=== PATIENT | female | born 1940 | race Caucasian/White ===

== ENCOUNTER 2017-06-15 13:26 | Emergency (ER) | payer MEDICARE ==
[~2017-06-15] VITALS: Ht 170.2 cm; Wt 65.0 kg
[~2017-06-15 13:26] MED LIST: AMLO5 PO; GABA100C4 PO; METO25TA6 PO; TEMA15CA PO
[2017-06-15 13:28] VITALS: BP 219/103; PULSE 54; RESP 24; TEMP 97.8; O2SAT 100
--- NOTE | 2017-06-15 13:33 | PD ---
Physical Exam Date Seen by Provider: Jun 15, 2017 Time Seen by Provider: 13:29 Narrative 76 yo female here for eval of HTN and low HR. Has had this since today. Feels jittery. Weak. Not feeling right. No chest pain. But feels SOB. Vitals are stable in triage. Awaiting Bed placement. Data Data Last Documented VS Vital Signs Date Time Temp Pulse Resp B/P Pulse Ox O2 Delivery O2 Flow Rate FiO2 06/15/17 13:28 97.8 54 24 219/103 100 Room Air [facility] Medical Record Reviewed: Yes Supervised Visit with ARNAUD: Pete Victoria Jun 15, 2017 13:33
[2017-06-15 14:05] VITALS: RESP 17; O2SAT 100
--- NOTE | 2017-06-15 14:09 | PD ---
HPI Chief Complaint: dizziness Time Seen by Provider: 14:04 Travel History International Travel<30 days: No Contact w/Intl Traveler<30days: No Traveled to known affect area: No History of Present Illness HPI Patient comes in complaining of dizziness that began earlier today. Patient's sister started checking her blood pressure multiple times and was going up some. Patient states that on Tuesday she was feeling a little more swollen than normal and a diuretic. Causing her to void multiple times. Patient states she normally gets about 6 times at night to urinate however last night she did not get up at all. Patient denies any chest pain, shortness breath without of the ordinary, headache, numbness or tingling anywhere, abdominal pain, back pain, nausea, vomiting, or fevers. Patient has a colostomy is noted is been putting out more stool than normal. Patient drank some Gatorade that seemed to help her symptoms. Patient thinks she may be dehydrated her and that her electrolytes may be off. Patient states she has a history of stage III renal disease. Denies anything making her symptoms worse. Symptoms are mild. 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 ) Hepatitis: No Hiatal Hernia: No Hypertension: Yes Immune Disorder: No Implanted Vascular Access Dvce: Yes Kidney Stones: No Musculoskeletal: Yes (Arthritis) Neurologic: Yes Psychiatric: No Reproductive: No Respiratory: Yes Migraines: No Radiation Therapy: No Seizures: No Sleep Apnea: No Thyroid Disease: No Ulcer: No Past Surgical History Abdominal Surgery: Yes (colostomy 2002) AICD: No Arteriovenous Shunt: No Cardiac Surgery: Yes (stent 5 yrs ago, DOUBLE BYPASS CABG 11/03/13) Cholecystectomy: Yes Coronary Artery Bypass Graft: Yes (x2) Coronary Stent: Yes Ear Surgery: Yes (preauricular sinus sx right ear) Endocrine Surgery: No Eye Surgery: Yes (cataract, bilateral vitrectomy) Genitourinary Surgery: No Gynecologic Surgery: Yes (hysterectomy) Hysterectomy: Yes Insulin Pump: No Joint Replacement: No Neurologic Surgery: No Oral Surgery: No Pacemaker: No Thoracic Surgery: Yes Tonsillectomy: Yes Other Surgery: Yes (tonsils, cataract bilaterally, gallbladder, hysterectomy, colostomy ) Social History Alcohol Use: No Tobacco Use: No Substance Use: No Allergies-Medications (Allergen,Severity, Reaction): Coded Allergies: Erythromycin (Verified Allergy, Severe, RASH, 06/15/17) Ibuprofen (Verified Allergy, Severe, RASH, 06/15/17) Amiodarone (Verified Adverse Reaction, Severe, tremors off balance vomiting, 06/15/17) Reported Meds & Prescriptions Reported Meds & Active Scripts Active Reported Temazepam 15 Mg Cap 15 Mg PO DAILY Metoprolol Succinate ER 24 HR (Metoprolol Succinate) 25 Mg Tab 25 Mg PO BID Review of Systems Except as stated in HPI: all other systems reviewed are Neg Physical Exam Narrative GENERAL: Well-developed, well nourished, in no acute distress, and non-ill appearing. SKIN: Focused skin assessment warm and dry. HEAD: Atraumatic. Normocephalic. EYES: Pupils equal and round. EOMI. No scleral icterus. No injection or drainage. ENT: No nasal bleeding or discharge. Mucous membranes pink and moist. NECK: Trachea midline. No JVD. Supple. No nuclear rigidity. CARDIOVASCULAR: Regular rate and rhythm. No murmur appreciated. RESPIRATORY: No accessory muscle use. No respiratory distress. Clear to auscultation. Breath sounds equal bilaterally. GASTROINTESTINAL: Abdomen soft, non-tender, nondistended, and no guarding. Hepatic and splenic margins not palpable. Normal bowel sounds 4. No pulsatile mass. Colostomy bag noted left lower quadrant. There is no melena or bright red blood noted in the stool. MUSCULOSKELETAL: No obvious deformities. No clubbing. No cyanosis. No edema. Full range of motion. NEUROLOGICAL: Awake and alert. No obvious cranial nerve deficits. Motor grossly within normal limits. Normal speech. PSYCHIATRIC: Appropriate mood and affect; insight and judgment normal. Data Data Last Documented VS Vital Signs Date Time Temp Pulse Resp B/P Pulse Ox O2 Delivery O2 Flow Rate FiO2 06/15/17 16:09 98.1 54 16 138/76 100 06/15/17 15:32 Room Air Orders Electrocardiogram (06/15/17 ) Basic Metabolic Panel (Bmp) (06/15/17 14:03) Complete Blood Count With Diff (06/15/17 14:03) Urinalysis - C+S If Indicated (06/15/17 14:03) Ecg Monitoring (06/15/17 14:03) Iv Access Insert/Monitor (06/15/17 14:03) Oximetry (06/15/17 14:03) Sodium Chloride 0.9% Flush (Ns Flush) (06/15/17 14:15) Sodium Chlorid 0.9% 500 Ml Inj (Ns 500 M (06/15/17 14:15) Labs Laboratory Tests Test 06/15/17 06/15/17 14:08 14:18 White Blood Count 8.6 TH/MM3 Red Blood Count 4.28 MIL/MM3 Hemoglobin 13.2 GM/DL Hematocrit 38.8 % Mean Corpuscular Volume 90.7 FL Mean Corpuscular Hemoglobin 30.8 PG Mean Corpuscular Hemoglobin 33.9 % Concent Red Cell Distribution Width 12.9 % Platelet Count 173 TH/MM3 Mean Platelet Volume 8.0 FL Neutrophils (%) (Auto) 67.2 % Lymphocytes (%) (Auto) 21.1 % Monocytes (%) (Auto) 7.4 % Eosinophils (%) (Auto) 3.6 % Basophils (%) (Auto) 0.7 % Neutrophils # (Auto) 5.8 TH/MM3 Lymphocytes # (Auto) 1.8 TH/MM3 Monocytes # (Auto) 0.6 TH/MM3 Eosinophils # (Auto) 0.3 TH/MM3 Basophils # (Auto) 0.1 TH/MM3 CBC Comment DIFF FINAL Differential Comment Sodium Level 135 MEQ/L Potassium Level 4.9 MEQ/L Chloride Level 102 MEQ/L Carbon Dioxide Level 22.8 MEQ/L Anion Gap 10 MEQ/L Blood Urea Nitrogen 27 MG/DL Creatinine 1.22 MG/DL Estimat Glomerular Filtration 43 ML/MIN Rate Random Glucose 87 MG/DL Calcium Level 9.5 MG/DL Urine Color LIGHT-YELLOW Urine Turbidity CLEAR Urine pH 6.0 Urine Specific [place] 1.005 Urine Protein NEG mg/dL Urine Glucose (UA) NEG mg/dL Urine Ketones NEG mg/dL Urine Occult Blood NEG Urine Nitrite NEG Urine Bilirubin NEG Urine Urobilinogen LESS THAN 2.0 MG/DL Urine Leukocyte Esterase SMALL Urine RBC LESS THAN 1 /hpf Urine WBC 5 /hpf Urine Squamous Epithelial <1 /hpf Cells Microscopic Urinalysis Comment CULT NOT INDICATED MDM Medical Decision Making Medical Screen Exam Complete: Yes Emergency Medical Condition: Yes Interpretation(s) EKG reviewed by Dr. Tan shows sinus bradycardia with ventricular rate of 53. No STEMI. Differential Diagnosis Dehydration, electrolyte rheumatic, vertigo, dehydration, other Narrative Course Patient seen and examined. IV was established. Patient was placed on continuous cardiac monitoring. Laboratory studies were ordered. Patient given 500 cc IV fluid. Labs were reviewed. Patient was reevaluated reports feeling better. Discussed all laboratory findings with patient and her sister. Patient states that she has dizziness regularly and has meclizine at home for this but did not take any. Patient states that she normally has to ambulate with assistance from her sister as she refuses to use a walker. Patient is feeling better and wanting to go home. Patient was able to ambulate to the bathroom back with minimal assistance of her sister. All questions were answered. Patient in no obvious distress upon re-evaluation. All pertinent laboratory result(s) discussed with patient/family. Discussed patient with Dr. Tan, prior to discharge who reviewed patients labs and is in agreement with plan of care and disposition. Any questions/concerns in reference to patient diagnosis/ condition discussed and clarified prior to patient's discharge. Reinforced sheer importance of close follow up with patient's primary physician or primary care clinic. Instructed patient to return to ED immediately, if symptoms return/ worsen. Pt showed understanding of above instructions. Further instructions and recommendations were detailed in discharge paperwork. Pt ambulated without difficulty out of ED at discharge. Diagnosis Primary Impression: Dehydration, mild Patient Instructions: Dehydration (ED), General Instructions Additional Instructions: Follow-up with your primary care physician in 2-5 days reevaluation. Return to the emergency department if symptoms get worse. Disposition: 01 DISCHARGE HOME Condition: Stable Lew Alberto Jun 15, 2017 14:09
[2017-06-15] MEDS ORDERED: SODIUM CHLORID 0.9% 500 ML INJ 500 ML IV ONE (14:15)
[2017-06-15] MEDS ORDERED: SODIUM CHLORIDE 0.9% FLUSH 10 ML FLUSH IVF PRN (14:15)
[2017-06-15 14:24] VITALS: BP 142/73; PULSE 56; RESP 17; O2SAT 100
[2017-06-15 14:36] LABS: BLOOD, URINE NEG (NEG); COMMENT (UR) CULT NOT INDICATED; CULTURE IF INDICATED CULT NOT INDICATED; GLUCOSE,URINE NEG (NEG); KETONE, URINE NEG (NEG); NITRITE,URINE NEG (NEG); SQUAMOUS EPITHELIAL CELL URINE <1 /hpf (0-5); URINE COLOR LIGHT-YELLOW (YELLW/STRAW)
[2017-06-15 14:37] LABS: AUTOMATED NEUTROPHIL # 5.8 TH/MM3 (1.8-7.7); BASOPHIL # 0.1 TH/MM3 (0-0.2); BASOPHIL % 0.7 % (0.0-2.0); EOSINOPHIL # 0.3 TH/MM3 (0-0.4); EOSINOPHIL % 3.6 % (0.0-4.0); HEMATOCRIT 38.8 % (35.0-46.0); HEMO FLAGS DIFF FINAL; LYMPH % 21.1 % (9.0-44.0); LYMPHOCYTE # 1.8 TH/MM3 (1.0-4.8); MEAN CELL VOLUME 90.7 FL (80.0-100.0); MEAN CORPUSCULAR HEMOGLOBIN 30.8 PG (27.0-34.0); MEAN CORPUSCULAR HGB CONC 33.9 % (32.0-36.0); MONO % 7.4 % (0.0-8.0); NEUT % 67.2 % (16.0-70.0); PLATELET COUNT 173 TH/MM3 (150-450); RED BLOOD COUNT 4.28 MIL/MM3 (4.00-5.30); RED CELL DISTRIBUTION WIDTH 12.9 % (11.6-17.2); WHITE BLOOD COUNT 8.6 TH/MM3 (4.0-11.0)
[2017-06-15 15:08] LABS: BICARBONATE 22.8 MEQ/L (21.0-32.0); POTASSIUM 4.9 MEQ/L (3.5-5.1)
[2017-06-15 15:32] VITALS: BP 148/83; PULSE 54; RESP 16; TEMP 97.8; O2SAT 99
[2017-06-15 16:09] VITALS: BP 138/76; TEMP 98.1
--- NOTE | 2017-06-16 11:35 | EKG ---
Date Performed: 06/15/2017 Time Performed: 13:42:28 PTAGE: 76 years EKG: SINUS BRADYCARDIA WITH FIRST DEGREE AV BLOCK MODERATE ST DEPRESSION ABNORMAL ECG Compared t o prior tracing no significant change PREVIOUS TRACING : 10/31/2016 15.28 DOCTOR: Michael Perry Interpretating Date/Time 06/16/2017 11:33:38
== END 2017-06-15 16:10 | disposition home or self-care (01) ==
LOC: NEPC 13:26
DX: E86.0 Dehydration (principal); I10 Essential (primary) hypertension; Z85.038 Personal history of other malignant neoplasm of large intestine; Z86.73 Personal history of transient ischemic attack (TIA), and cerebral infarction without residual deficits; Z93.3 Colostomy status; Z95.1 Presence of aortocoronary bypass graft; Z95.5 Presence of coronary angioplasty implant and graft; Z79.82 Long term (current) use of aspirin
CPT/HCPCS: 80048; 81001; 85025; 93005; 96360; 99284; J7040

== ENCOUNTER 2017-07-15 12:35 | Emergency (ER) | payer MEDICARE ==
[~2017-07-15 12:35] MED LIST changes: -AMLO5 PO; -GABA100C4 PO
[2017-07-15 12:46] VITALS: BP 229/97; PULSE 51; RESP 18; TEMP 97.7; O2SAT 100
[2017-07-15] MEDS ORDERED: SODIUM CHLOR 0.9% 1000 ML INJ 1,000 ML IV ONE (12:56)
--- NOTE | 2017-07-15 13:08 | PD ---
HPI Chief Complaint: General Weakness Time Seen by Provider: 13:05 Travel History International Travel<30 days: No Contact w/Intl Traveler<30days: No Traveled to known affect area: No History of Present Illness HPI 76-year-old brought in via EMS with complaint of feeling nauseous when she first woke up this morning. patient stated she knows she is on a beta tahira which can affect her heart rate so she sat down and checked her heart rate. Her heart rate was approximately 41 per patient and then she checked her blood pressure and her blood pressure was elevated. These findings greatly concerned the patient so she contacted her sister stating she needed help regarding her symptoms. Her sister came to her apartment and recommended that they call 911. While they're waiting for EMS the patient consumed some electrolyte drink that her sister brought from [employer] store because she thought the problem might be with her electrolytes. The patient explained that similar to Gatorade but more pure. The patient explained that she has had a scary year regarding her health. She was worked up for meningitis last year. After her stent in intensive medical care she has had issues regarding her electrolytes. She was concerned that her electrolytes might be off and would like her electrolytes checked. Patient denies any shortness of breath, chest pain, urinary symptoms, fever or chills. No headache or neurological symptoms. Patient has a history of colon cancer and has a colostomy bag in place. She denies any problems or concerns with her colostomy. She denies any abdominal pain or vomiting. She did feel nauseated when she woke up today but those symptoms have resolved at this time. 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 ) Hepatitis: No Hiatal Hernia: No Hypertension: Yes Immune Disorder: No Implanted Vascular Access Dvce: Yes Kidney Stones: No Musculoskeletal: Yes (Arthritis) Neurologic: Yes Psychiatric: No Reproductive: No Respiratory: Yes Migraines: No Radiation Therapy: No Seizures: No Sleep Apnea: No Thyroid Disease: No Ulcer: No Past Surgical History Abdominal Surgery: Yes (colostomy 2002) AICD: No Arteriovenous Shunt: No Cardiac Surgery: Yes (stent 5 yrs ago, DOUBLE BYPASS CABG 11/03/13) Cholecystectomy: Yes Coronary Artery Bypass Graft: Yes (x2) Coronary Stent: Yes Ear Surgery: Yes (preauricular sinus sx right ear) Endocrine Surgery: No Eye Surgery: Yes (cataract, bilateral vitrectomy) Genitourinary Surgery: No Gynecologic Surgery: Yes (hysterectomy) Hysterectomy: Yes Insulin Pump: No Joint Replacement: No Neurologic Surgery: No Oral Surgery: No Pacemaker: No Thoracic Surgery: Yes Tonsillectomy: Yes Other Surgery: Yes (tonsils, cataract bilaterally, gallbladder, hysterectomy, colostomy ) Social History Alcohol Use: Yes (OCASSIONALLY) Tobacco Use: No (QUIT 30 YEARS AGO) Substance Use: No Allergies-Medications (Allergen,Severity, Reaction): Coded Allergies: erythromycin base (Unverified Allergy, Severe, RASH, 06/22/17) ibuprofen (Unverified Allergy, Severe, RASH, 06/22/17) amiodarone (Unverified Adverse Reaction, Severe, tremors off balance vomiting, 06/22/17) Reported Meds & Prescriptions Reported Meds & Active Scripts Active Reported Temazepam 15 Mg Cap 15 Mg PO DAILY Metoprolol Succinate ER 24 HR (Metoprolol Succinate) 25 Mg Tab 25 Mg PO BID Review of Systems Except as stated in HPI: all other systems reviewed are Neg Physical Exam Narrative GENERAL: Well-nourished, well-developed female patient. In no acute distress. SKIN: Focused skin assessment warm/dry. NEUROLOGICAL: Awake and alert. Cranial nerves II through XII grossly intact. Motor and sensory grossly within normal limits. Five out of 5 muscle strength in all muscle groups. Normal speech. HEAD: Normocephalic. Atraumatic EYES: No scleral icterus. No injection or drainage. PERRLA. NECK: Supple, trachea midline. No JVD or lymphadenopathy. CARDIOVASCULAR: Regular rate and rhythm without murmurs, gallops, or rubs. RESPIRATORY: Breath sounds equal bilaterally. No accessory muscle use. GASTROINTESTINAL: Abdomen soft, non-tender, nondistended. Colostomy in place. MUSCULOSKELETAL: No cyanosis, or edema. BACK: Nontender without obvious deformity. No CVA tenderness. Data Data Last Documented VS Vital Signs Date Time Temp Pulse Resp B/P (MAP) Pulse Ox O2 Delivery O2 Flow Rate FiO2 07/15/17 14:22 85 16 172/74 (106) 100 Room Air 07/15/17 12:46 97.7 Orders Orders Electrocardiogram (07/15/17 12:56) Basic Metabolic Panel (Bmp) (07/15/17 12:56) Complete Blood Count With Diff (07/15/17 12:56) Magnesium (Mg) (07/15/17 12:56) Ckmb (Isoenzyme) Profile (07/15/17 12:56) Troponin I (07/15/17 12:56) Urinalysis - C+S If Indicated (07/15/17 12:56) Ecg Monitoring (07/15/17 12:56) Iv Access Insert/Monitor (07/15/17 12:56) Sodium Chlor 0.9% 1000 Ml Inj (Ns 1000 M (07/15/17 12:56) Urine Culture (07/15/17 13:13) Labs Laboratory Tests Test 07/15/17 13:13 White Blood Count 8.6 TH/MM3 Red Blood Count 4.51 MIL/MM3 Hemoglobin 13.6 GM/DL Hematocrit 40.5 % Mean Corpuscular Volume 89.7 FL Mean Corpuscular Hemoglobin 30.0 PG Mean Corpuscular Hemoglobin Concent 33.5 % Red Cell Distribution Width 13.0 % Platelet Count 184 TH/MM3 Mean Platelet Volume 8.4 FL Neutrophils (%) (Auto) 63.4 % Lymphocytes (%) (Auto) 23.0 % Monocytes (%) (Auto) 8.0 % Eosinophils (%) (Auto) 4.9 % Basophils (%) (Auto) 0.7 % Neutrophils # (Auto) 5.4 TH/MM3 Lymphocytes # (Auto) 2.0 TH/MM3 Monocytes # (Auto) 0.7 TH/MM3 Eosinophils # (Auto) 0.4 TH/MM3 Basophils # (Auto) 0.1 TH/MM3 CBC Comment DIFF FINAL Differential Comment Urine Color LIGHT-YELLOW Urine Turbidity CLEAR Urine pH 7.0 Urine Specific [place] 1.005 Urine Protein NEG mg/dL Urine Glucose (UA) NEG mg/dL Urine Ketones NEG mg/dL Urine Occult Blood NEG Urine Nitrite NEG Urine Bilirubin NEG Urine Urobilinogen LESS THAN 2.0 MG/DL Urine Leukocyte Esterase LARGE Urine RBC 1 /hpf Urine WBC 18 /hpf Urine Squamous Epithelial Cells <1 /hpf Urine Bacteria RARE /hpf Microscopic Urinalysis Comment CULTURE INDICATED Blood Urea Nitrogen 22 MG/DL Creatinine 1.18 MG/DL Random Glucose 94 MG/DL Calcium Level 9.4 MG/DL Magnesium Level 2.2 MG/DL Sodium Level 137 MEQ/L Potassium Level 4.4 MEQ/L Chloride Level 106 MEQ/L Carbon Dioxide Level 21.3 MEQ/L Anion Gap 10 MEQ/L Estimat Glomerular Filtration Rate 44 ML/MIN Total Creatine Kinase 37 U/L Troponin I LESS THAN 0.02 NG/ML MDM Medical Decision Making Medical Screen Exam Complete: Yes Emergency Medical Condition: Yes Medical Record Reviewed: Yes Differential Diagnosis Electrolyte imbalance versus anxiety versus bradycardia versus hypertension Narrative Course 76-year-old female patient presents to the emergency department for evaluation after she woke up nauseated. She checked her own pulse and stated it was 41 bpm and her blood pressure was elevated. She called her sister for help. Her sister brought over to electrolyte drink that she brought from [employer] disorder. The patient explains that it was like Gatorade only more pure. The patient has had many issues regarding electrolyte imbalances since her stay and intensive care last year when she was worked up for meningitis. The patient denies any shortness of breath, chest pain, headache, neurological symptoms, urinary symptoms, fever or chills. The patient explained she would like her electrolytes checked to ensure that they are within normal limits. EKG, CBC, BMP, magnesium, troponin, CK, UA ordered and pending EKG shows a sinus bradycardia with first-degree AV block heart rate 44, CBC shows no acute abnormality, BMP shows no acute abnormality, MAG within normal limits at 2.2, Trop less than 0.02, CK within normal limits at 37, UA shows large amounts of bacteria, leukocyte esterase, culture indicated and pending Findings discussed with attending Dr. Tan who agrees with plan of care and disposition. Patient will be treated with Bactrim by mouth for urinary tract infection and discharged home. Referrals: Primary Care Physician Patient Instructions: General Instructions, Urinary Tract Infection in Women ( ED) Additional Instructions: Take Bactrim twice a day for 3 days for urinary tract infection. Drink plenty of fluids and stay hydrated. Continue to check heart rate and blood pressure at home. Please return to the emergency department with any worsening or new conditions Thank you for choosing [facility] healthcare needs Med/Other Pt SpecificInfo: Prescription(s) given Scripts Sulfamethoxazole-Trimethoprim (Bactrim DS) 800-160 Mg Tab 1 TAB PO BID for Infection for 3 Days, TAB 0 Refills Prov: Lacie Bryson 07/15/17 Lacie Bryson Jul 15, 2017 13:08
[2017-07-15 13:25] LABS: AUTOMATED NEUTROPHIL # 5.4 TH/MM3 (1.8-7.7); BASOPHIL # 0.1 TH/MM3 (0-0.2); BASOPHIL % 0.7 % (0.0-2.0); EOSINOPHIL # 0.4 TH/MM3 (0-0.4); EOSINOPHIL % 4.9 % (0.0-4.0); HEMATOCRIT 40.5 % (35.0-46.0); HEMO FLAGS DIFF FINAL; MEAN CELL VOLUME 89.7 FL (80.0-100.0); MEAN CORPUSCULAR HGB CONC 33.5 % (32.0-36.0); NEUT % 63.4 % (16.0-70.0); PLATELET COUNT 184 TH/MM3 (150-450); RED BLOOD COUNT 4.51 MIL/MM3 (4.00-5.30); WHITE BLOOD COUNT 8.6 TH/MM3 (4.0-11.0)
[2017-07-15 13:30] LABS: BACTERIA, URINE RARE /hpf; BLOOD, URINE NEG (NEG); COMMENT (UR) CULTURE INDICATED; CULTURE IF INDICATED CULTURE INDICATED; GLUCOSE,URINE NEG (NEG); KETONE, URINE NEG (NEG); NITRITE,URINE NEG (NEG); SQUAMOUS EPITHELIAL CELL URINE <1 /hpf (0-5); URINE COLOR LIGHT-YELLOW (YELLW/STRAW)
[2017-07-15 13:44] LABS: ANION GAP 10 MEQ/L (5-15); BICARBONATE 21.3 MEQ/L (21.0-32.0); BLOOD UREA NITROGEN 22 MG/DL (7-18); CHLORIDE 106 MEQ/L (98-107); GLOMERULAR FILTRATION RATE 44 ML/MIN (>89); MAGNESIUM 2.2 MG/DL (1.5-2.5); POTASSIUM 4.4 MEQ/L (3.5-5.1); SODIUM (NA) 137 MEQ/L (136-145)
[2017-07-15 13:54] LABS: CREATINE KINASE 37 U/L (26-192)
[2017-07-15 14:22] VITALS: BP 172/74; PULSE 85; RESP 16; O2SAT 100
[2017-07-15] MEDS ORDERED: BACT800T5 PO (14:42)
--- NOTE | 2017-07-15 15:21 | PD ---
Data Data Last Documented VS Vital Signs Date Time Temp Pulse Resp B/P (MAP) Pulse Ox O2 Delivery O2 Flow Rate FiO2 07/15/17 15:18 07/15/17 14:22 85 16 100 Room Air 07/15/17 12:46 97.7 Orders Orders Electrocardiogram (07/15/17 12:56) Basic Metabolic Panel (Bmp) (07/15/17 12:56) Complete Blood Count With Diff (07/15/17 12:56) Magnesium (Mg) (07/15/17 12:56) Ckmb (Isoenzyme) Profile (07/15/17 12:56) Troponin I (07/15/17 12:56) Urinalysis - C+S If Indicated (07/15/17 12:56) Ecg Monitoring (07/15/17 12:56) Iv Access Insert/Monitor (07/15/17 12:56) Sodium Chlor 0.9% 1000 Ml Inj (Ns 1000 M (07/15/17 12:56) Urine Culture (07/15/17 13:13) Labs Laboratory Tests Test 07/15/17 13:13 White Blood Count 8.6 TH/MM3 Red Blood Count 4.51 MIL/MM3 Hemoglobin 13.6 GM/DL Hematocrit 40.5 % Mean Corpuscular Volume 89.7 FL Mean Corpuscular Hemoglobin 30.0 PG Mean Corpuscular Hemoglobin Concent 33.5 % Red Cell Distribution Width 13.0 % Platelet Count 184 TH/MM3 Mean Platelet Volume 8.4 FL Neutrophils (%) (Auto) 63.4 % Lymphocytes (%) (Auto) 23.0 % Monocytes (%) (Auto) 8.0 % Eosinophils (%) (Auto) 4.9 % Basophils (%) (Auto) 0.7 % Neutrophils # (Auto) 5.4 TH/MM3 Lymphocytes # (Auto) 2.0 TH/MM3 Monocytes # (Auto) 0.7 TH/MM3 Eosinophils # (Auto) 0.4 TH/MM3 Basophils # (Auto) 0.1 TH/MM3 CBC Comment DIFF FINAL Differential Comment Urine Color LIGHT-YELLOW Urine Turbidity CLEAR Urine pH 7.0 Urine Specific [place] 1.005 Urine Protein NEG mg/dL Urine Glucose (UA) NEG mg/dL Urine Ketones NEG mg/dL Urine Occult Blood NEG Urine Nitrite NEG Urine Bilirubin NEG Urine Urobilinogen LESS THAN 2.0 MG/DL Urine Leukocyte Esterase LARGE Urine RBC 1 /hpf Urine WBC 18 /hpf Urine Squamous Epithelial Cells <1 /hpf Urine Bacteria RARE /hpf Microscopic Urinalysis Comment CULTURE INDICATED Blood Urea Nitrogen 22 MG/DL Creatinine 1.18 MG/DL Random Glucose 94 MG/DL Calcium Level 9.4 MG/DL Magnesium Level 2.2 MG/DL Sodium Level 137 MEQ/L Potassium Level 4.4 MEQ/L Chloride Level 106 MEQ/L Carbon Dioxide Level 21.3 MEQ/L Anion Gap 10 MEQ/L Estimat Glomerular Filtration Rate 44 ML/MIN Total Creatine Kinase 37 U/L Troponin I LESS THAN 0.02 NG/ML [facility] Medical Record Reviewed: Yes Supervised Visit with ARNAUD: Yes Narrative Course I, Dr. Tan, have reviewed the advance practice practitioner's documentation and am in agreement, met with the patient face to face, made the diagnosis, and the medical decision making was done by me. *My assessment and Findings: CBC & BMP Diagram 07/15/17 13:13 Calcium Level 9.4, Magnesium Level 2.2 Tn < 0.02 UA: UTI present BP improved to 172/74 The patient is resting comfortably and feels better, is alert and in no distress. The patients results and examination findings were discussed. The repeat examination is unremarkable and benign. The history, exam, diagnostic testing, and current condition do not suggest any significant pathology to warrant further testing, continued ED treatment, admission, or surgical evaluation at this point. The vital signs have been stable. The patient does not have uncontrollable pain, intractable vomiting, or other significant symptoms. The patient's condition is stable and appropriate for discharge. The patient will pursue further outpatient evaluation with a primary care physician or other designated or consulting physician as indicated in the discharge instructions. The patient expressed understanding and was agreeable with this plan. Diagnosis Primary Impression: Cystitis Additional Impression: Bradycardia Referrals: Primary Care Physician Patient Instructions: General Instructions, Urinary Tract Infection in Women ( ED) Additional Instruction: Take Bactrim twice a day for 3 days for urinary tract infection. Drink plenty of fluids and stay hydrated. Continue to check heart rate and blood pressure at home. Please return to the emergency department with any worsening or new conditions Thank you for choosing [facility] healthcare needs Scripts Sulfamethoxazole-Trimethoprim (Bactrim DS) 800-160 Mg Tab 1 TAB PO BID for Infection for 3 Days, TAB 0 Refills Prov: Lacie Bryson 07/15/17 Jorge Luis Tan MD Jul 15, 2017 15:21
--- NOTE | 2017-07-16 13:30 | EKG ---
Date Performed: 07/15/2017 Time Performed: 14:18:14 PTAGE: 76 years EKG: SINUS BRADYCARDIA WITH FIRST DEGREE AV BLOCK MINIMAL ST DEPRESSION PROLONGED QT INTERVAL AB NORMAL ECG PREVIOUS TRACING : 06/15/2017 13.42 Since prior tracing, bradycardia is more marked. DOCTOR: Jv Mahoney Interpretating Date/Time 07/16/2017 13:29:10
== END 2017-07-15 15:33 | disposition home or self-care (01) ==
LOC: NEPE 12:35
DX: N30.90 Cystitis, unspecified without hematuria (principal); B96.89 Other specified bacterial agents as the cause of diseases classified elsewhere; R00.1 Bradycardia, unspecified; I10 Essential (primary) hypertension; Z85.038 Personal history of other malignant neoplasm of large intestine; Z87.891 Personal history of nicotine dependence
CPT/HCPCS: 80048; 81001; 82550; 83735; 84484; 85025; 87086; 93005; 96360; 99284; J7030

== ENCOUNTER 2017-10-08 14:03 | Inpatient (IN) | payer MEDICARE ==
[~2017-10-08] VITALS: Ht 167.6 cm; Wt 144.0 kg
[2017-10-08] VITALS (9 sets, daily range): BP systolic 140–236; BP diastolic 62–102; PULSE 60–78; RESP 16–18; TEMP 97.8; O2SAT 98–100
[~2017-10-08 14:03] MED LIST changes: +BACT800T5 PO; +METO1TAB42 PO; -METO25TA6 PO
[2017-10-08] MEDS ORDERED: METH8TAB3 PO (14:14)
[2017-10-08] MEDS ORDERED: ASPIRIN 81 MG CHEW TAB PO ONE (14:45)
[2017-10-08] MEDS ORDERED: SODIUM CHLORIDE 0.9% FLUSH 10 ML FLUSH IVF PRN (14:45)
[2017-10-08] MEDS ORDERED: NITROGLYCERIN 2% OINT 1 GM PACKET TOP ONE (14:45)
--- NOTE | 2017-10-08 14:48 | PD ---
HPI Chief Complaint: Chest Pain Time Seen by Provider: 14:21 Travel History International Travel<30 days: No Contact w/Intl Traveler<30days: No Traveled to known affect area: No History of Present Illness HPI Patient is a 77-year-old female presenting to emergency department for evaluation of chest pain. Patient states that approximately noon today she started with pain in her neck, this radiated to the epigastric area then progressed to the left anterior chest wall and left arm. Patient reports being diaphoretic and dizzy when this occurred. She also reports burping for 30 minutes after the chest pain started. She initially thought it was indigestion but when the pain persisted she presented to the emergency department. Patient states that she felt wheezy last night and used her albuterol inhaler, she denies any shortness of breath at this time. She does have a history of asthma as a child. She currently denies any chest pain. Past medical history significant for hypertension, coronary artery disease, stage III chronic kidney disease, congestive heart failure, colon cancer with resection and subsequent colostomy. Patient is not on any blood thinners. Patient does report looser stools than normal. She states that she has had a heart attack in the past when her electrolytes were depleted. PFSH Past Medical History Arthritis: Yes Heart Rhythm Problems: Yes (prolonged QT) Cancer: Yes (colon ) Cardiac Catheterization: Yes (x2) Chemotherapy: Yes (colon cancer 2002) Chest Pain: Yes Congestive Heart Failure: Yes Cerebrovascular Accident: Yes Coronary Artery Disease: Yes Gastrointestinal Disorders: Yes (irritable bowel disease) GERD: Yes Hypertension: Yes Neurologic: Yes Myocardial Infarction: Yes Renal Failure: Yes (chronic kidney disease stage III) Tetanus Vaccination: > 5 Years Influenza Vaccination: Yes Past Surgical History Abdominal Surgery: Yes (colostomy 2002) Cholecystectomy: Yes Coronary Artery Bypass Graft: Yes Coronary Stent: Yes Ear Surgery: Yes (preauricular sinus sx right ear) Eye Surgery: Yes (cataract, bilateral vitrectomy) Hysterectomy: Yes Pacemaker: Yes Tonsillectomy: Yes Social History Alcohol Use: Yes (OCASSIONALLY) Tobacco Use: No (QUIT 30 YEARS AGO) Substance Use: No Allergies-Medications (Allergen,Severity, Reaction): Coded Allergies: erythromycin base (Verified Allergy, Severe, RASH, 10/08/17) ibuprofen (Verified Allergy, Severe, RASH, 10/08/17) amiodarone (Unverified Adverse Reaction, Severe, tremors off balance vomiting, 06/22/17) Reported Meds & Prescriptions Reported Meds & Active Scripts Active Reported Methylprednisolone 8 Mg Tab 4 Mg PO BID Temazepam 15 Mg Cap 15 Mg PO DAILY Metoprolol Succinate ER 24 HR (Metoprolol Succinate) 25 Mg Tab 25 Mg PO BID Review of Systems Except as stated in HPI: all other systems reviewed are Neg General / Constitutional: No: Fever Eyes: No: Photophobia HENT: No: Headaches Cardiovascular: Positive: Chest Pain or Discomfort, Diaphoresis, No: Tachycardia, Dyspnea on exertion, Edema Respiratory: Positive: Shortness of Breath Gastrointestinal: Positive: Indigestion Genitourinary: No: Dysuria Neurologic: Positive: Dizziness, No: Weakness, Syncope, Focal Abnormalities, Change in Mentation Physical Exam Narrative GENERAL: Well-developed, well-nourished, alert female. Resting comfortably in no acute distress. SKIN: Warm and dry. HEAD: Atraumatic. Normocephalic. EYES: Pupils equal and round. No scleral icterus. No injection or drainage. ENT: No nasal bleeding or discharge. Mucous membranes pink and moist. NECK: Trachea midline. No JVD. CARDIOVASCULAR: Regular rate and rhythm. RESPIRATORY: No accessory muscle use. Clear to auscultation. Breath sounds equal bilaterally. GASTROINTESTINAL: Abdomen soft, non-tender, nondistended. Hepatic and splenic margins not palpable. Colostomy bag MUSCULOSKELETAL: Extremities without clubbing, cyanosis, or edema. No obvious deformities. NEUROLOGICAL: Awake and alert. No obvious cranial nerve deficits. Motor grossly within normal limits. Five out of 5 muscle strength in the arms and legs. Normal speech. PSYCHIATRIC: Appropriate mood and affect; insight and judgment normal. Data Data Last Documented VS Vital Signs Date Time Temp Pulse Resp B/P (MAP) Pulse Ox O2 Delivery O2 Flow Rate FiO2 10/08/17 16:19 97.8 60 16 172/76 (108) 100 Room Air Orders Orders Electrocardiogram (10/08/17 ) Electrocardiogram (10/08/17 14:39) B-Type Natriuretic Peptide (10/08/17 14:39) Ckmb (Isoenzyme) Profile (10/08/17 14:39) Complete Blood Count With Diff (10/08/17 14:39) Comprehensive Metabolic Panel (10/08/17 14:39) Magnesium (Mg) (10/08/17 14:39) Prothrombin Time / Inr (Pt) (10/08/17 14:39) Act Partial Throm Time (Ptt) (10/08/17 14:39) Troponin I (10/08/17 14:39) Lipase (10/08/17 14:39) Chest, Single Ap (10/08/17 14:39) Ecg Monitoring (10/08/17 14:39) Bilateral Bp Monitoring (10/08/17 14:39) Iv Access Insert/Monitor (10/08/17 14:39) Oximetry (10/08/17 14:39) Oxygen Administration (10/08/17 14:39) Aspirin Chew (Aspirin Chew) (10/08/17 14:45) Nitroglycerin 2% Oint (Nitroglycerin 2% (10/08/17 14:45) Sodium Chloride 0.9% Flush (Ns Flush) (10/08/17 14:45) Sodium Chlorid 0.9% 500 Ml Inj (Ns 500 M (10/08/17 16:15) Sodium Polysty Sulfate Liq (Kayexalate L (10/08/17 16:30) Labs Laboratory Tests Test 10/08/17 14:43 White Blood Count 13.2 TH/MM3 Red Blood Count 4.33 MIL/MM3 Hemoglobin 13.3 GM/DL Hematocrit 40.2 % Mean Corpuscular Volume 93.0 FL Mean Corpuscular Hemoglobin 30.7 PG Mean Corpuscular Hemoglobin Concent 33.0 % Red Cell Distribution Width 15.0 % Platelet Count 163 TH/MM3 Mean Platelet Volume 7.8 FL Neutrophils (%) (Auto) 87.4 % Lymphocytes (%) (Auto) 6.7 % Monocytes (%) (Auto) 5.2 % Eosinophils (%) (Auto) 0.2 % Basophils (%) (Auto) 0.5 % Neutrophils # (Auto) 11.6 TH/MM3 Lymphocytes # (Auto) 0.9 TH/MM3 Monocytes # (Auto) 0.7 TH/MM3 Eosinophils # (Auto) 0.0 TH/MM3 Basophils # (Auto) 0.1 TH/MM3 CBC Comment AUTO DIFF Differential Total Cells Counted 100 Neutrophils % (Manual) 79 % Band Neutrophils % 7 % Lymphocytes % 7 % Monocytes % 7 % Neutrophils # (Manual) 11.4 TH/MM3 Differential Comment FINAL DIFF MANUAL Platelet Estimate NORMAL Platelet Morphology Comment NORMAL Red Cell Morphology Comment NORMAL Prothrombin Time 10.0 SEC Prothromb Time International Ratio 1.0 RATIO Activated Partial Thromboplast Time 22.0 SEC Blood Urea Nitrogen 39 MG/DL Creatinine 1.15 MG/DL Random Glucose 85 MG/DL Total Protein 6.6 GM/DL Albumin 4.0 GM/DL Calcium Level 8.7 MG/DL Magnesium Level 2.1 MG/DL Alkaline Phosphatase 78 U/L Aspartate Amino Transf (AST/SGOT) 21 U/L Alanine Aminotransferase (ALT/SGPT) 26 U/L Total Bilirubin 1.3 MG/DL Sodium Level 132 MEQ/L Potassium Level 5.8 MEQ/L Chloride Level 101 MEQ/L Carbon Dioxide Level 23.1 MEQ/L Anion Gap 8 MEQ/L Estimat Glomerular Filtration Rate 46 ML/MIN Total Creatine Kinase 30 U/L Troponin I LESS THAN 0.02 NG/ML B-Type Natriuretic Peptide 143 PG/ML Lipase 211 U/L MDM Medical Decision Making Medical Screen Exam Complete: Yes Emergency Medical Condition: Yes Medical Record Reviewed: Yes Interpretation(s) Laboratory Tests Test 10/08/17 14:43 White Blood Count 13.2 TH/MM3 Red Blood Count 4.33 MIL/MM3 Hemoglobin 13.3 GM/DL Hematocrit 40.2 % Mean Corpuscular Volume 93.0 FL Mean Corpuscular Hemoglobin 30.7 PG Mean Corpuscular Hemoglobin Concent 33.0 % Red Cell Distribution Width 15.0 % Platelet Count 163 TH/MM3 Mean Platelet Volume 7.8 FL Neutrophils (%) (Auto) 87.4 % Lymphocytes (%) (Auto) 6.7 % Monocytes (%) (Auto) 5.2 % Eosinophils (%) (Auto) 0.2 % Basophils (%) (Auto) 0.5 % Neutrophils # (Auto) 11.6 TH/MM3 Lymphocytes # (Auto) 0.9 TH/MM3 Monocytes # (Auto) 0.7 TH/MM3 Eosinophils # (Auto) 0.0 TH/MM3 Basophils # (Auto) 0.1 TH/MM3 CBC Comment AUTO DIFF Differential Total Cells Counted 100 Neutrophils % (Manual) 79 % Band Neutrophils % 7 % Lymphocytes % 7 % Monocytes % 7 % Neutrophils # (Manual) 11.4 TH/MM3 Differential Comment FINAL DIFF MANUAL Platelet Estimate NORMAL Platelet Morphology Comment NORMAL Red Cell Morphology Comment NORMAL Prothrombin Time 10.0 SEC Prothromb Time International Ratio 1.0 RATIO Activated Partial Thromboplast Time 22.0 SEC Blood Urea Nitrogen 39 MG/DL Creatinine 1.15 MG/DL Random Glucose 85 MG/DL Total Protein 6.6 GM/DL Albumin 4.0 GM/DL Calcium Level 8.7 MG/DL Magnesium Level 2.1 MG/DL Alkaline Phosphatase 78 U/L Aspartate Amino Transf (AST/SGOT) 21 U/L Alanine Aminotransferase (ALT/SGPT) 26 U/L Total Bilirubin 1.3 MG/DL Sodium Level 132 MEQ/L Potassium Level 5.8 MEQ/L Chloride Level 101 MEQ/L Carbon Dioxide Level 23.1 MEQ/L Anion Gap 8 MEQ/L Estimat Glomerular Filtration Rate 46 ML/MIN Total Creatine Kinase 30 U/L Troponin I LESS THAN 0.02 NG/ML B-Type Natriuretic Peptide 143 PG/ML Lipase 211 U/L Last Impressions Chest X-Ray 10/08/17 3644 Signed Impressions: Service Date/Time: Sunday, October 08, 2017 14:49 - CONCLUSION: 1. No acute abnormality or significant interval change. Cordell Hall MD Vital Signs Date Time Temp Pulse Resp B/P (MAP) Pulse Ox O2 Delivery O2 Flow Rate FiO2 10/08/17 16:19 97.8 60 16 172/76 (108) 100 Room Air 10/08/17 15:33 97.8 60 17 187/86 (119) 100 Room Air 10/08/17 14:44 100 10/08/17 14:44 17 100 Room Air 10/08/17 14:40 60 17 189/86 (120) 100 Room Air 198/81 (120) 10/08/17 14:12 60 17 100 Room Air 10/08/17 14:11 97.8 60 17 236/102 (146) 100 Differential Diagnosis Hypertensive emergency versus ACS versus USA versus metabolic abnormality versus other Narrative Course Patient presented for evaluation of chest pain. Labs and imaging ordered and pending. Patient is hypertensive on arrival, nitro paste ordered to anterior chest wall. Patient is without pain at this time. She will also be given 324 mg of chewable aspirin. Initial EKG which was reviewed by my attending physician shows normal sinus rhythm with atrial paced, ventricular rate is 60. Chest x-ray shows no acute disease CBC with a white count of 13.2 with left shift and bandemia. Chemistry with potassium of 5.8, sodium 132, BUN and creatinine 39/1.15. Patient was given 500 cc normal saline IV as well as 30 g of Kayexalate orally. Cardiac enzymes are negative 1 set Blood pressure trended down after Nitro paste was placed on patient's chest. Patiently placed under observation for further trending, and to reevaluate electrolyte status. Discussed with Dr. Manzano who accepted admission. Admit orders placed. Findings to this point were discussed with patient and her sister. Diagnosis Primary Impression: Chest pain Qualified Codes: R07.9 - Chest pain, unspecified Additional Impressions: Hyperkalemia Acute kidney injury superimposed on chronic kidney disease Hypertension Qualified Codes: I10 - Essential (primary) hypertension Admitting Information Admitting Physician Requests: Observation Condition: Stable [place] GEOSPATIAL ANALYST Oct 08, 2017 14:48
[2017-10-08 15:01] LABS: AUTOMATED NEUTROPHIL # 11.6 TH/MM3 (1.8-7.7); BASOPHIL # 0.1 TH/MM3 (0-0.2); BASOPHIL % 0.5 % (0.0-2.0); EOSINOPHIL % 0.2 % (0.0-4.0); HEMATOCRIT 40.2 % (35.0-46.0); LYMPH % 6.7 % (9.0-44.0); LYMPHOCYTE # 0.9 TH/MM3 (1.0-4.8); MEAN CORPUSCULAR HEMOGLOBIN 30.7 PG (27.0-34.0); MONO % 5.2 % (0.0-8.0); NEUT % 87.4 % (16.0-70.0); PLATELET COUNT 163 TH/MM3 (150-450); RED BLOOD COUNT 4.33 MIL/MM3 (4.00-5.30); WHITE BLOOD COUNT 13.2 TH/MM3 (4.0-11.0)
[2017-10-08 15:04] LABS: HEMO FLAGS AUTO DIFF
--- NOTE | 2017-10-08 15:06 | RADRPT ---
EXAM DATE/TIME: 10/08/2017 14:49 [facility] COMPARISON: CHEST SINGLE AP, October 31, 2016, 15:21. INDICATIONS : Chest pain and shortness of breath. MEDICAL HISTORY : Myocardial infarction. Stroke. Cardiovascular disease. Cerebrovascular disease. Congestive heart failure. SURGICAL HISTORY : CABG. Pacemaker. Cardiac stent. ENCOUNTER: Initial ACUITY: 1 week PAIN SCORE: 5/10 LOCATION: Bilateral chest FINDINGS: Stable postsurgical features of prior median sternotomy with dual-lead pacemaker in place. No new foc al pleural or parenchymal opacities. Cardiomediastinal contours are stable. Remainder of the exam is unchanged. CONCLUSION: 1. No acute abnormality or significant interval change. Cordell Hall MD on October 08, 2017 at 15:03 Board Certified Radiologist. This report was verified electronically.
[2017-10-08 15:13] LABS: ANION GAP 8 MEQ/L (5-15); AST (GOT) 21 U/L (15-37); BICARBONATE 23.1 MEQ/L (21.0-32.0); BLOOD UREA NITROGEN 39 MG/DL (7-18); CHLORIDE 101 MEQ/L (98-107); GLOMERULAR FILTRATION RATE 46 ML/MIN (>89); MAGNESIUM 2.1 MG/DL (1.5-2.5); POTASSIUM 5.8 MEQ/L (3.5-5.1); SODIUM (NA) 132 MEQ/L (136-145)
[2017-10-08 15:14] LABS: ALT (GPT) 26 U/L (10-53)
[2017-10-08 15:18] LABS: ALKALINE PHOSPHATASE 78 U/L (45-117); TOTAL BILIRUBIN ADULT 1.3 MG/DL (0.2-1.0)
[2017-10-08 15:30] LABS: BANDS 7 % (0-6); NEUTROPHIL # MANUAL DIFF 11.4 TH/MM3 (1.8-7.7); PLATELET ESTIMATE SMEAR NORMAL (NORMAL); PLATELET MORPHOLOGY NORMAL (NORMAL); POLYS (SEG NEUTROPHILS) 79 % (16-70); SCAN/DIFF FINAL DIFF MANUAL; WBC DIFF SAMPLE 100
[2017-10-08 15:31] LABS: CREATINE KINASE 30 U/L (26-192)
[2017-10-08] MEDS ORDERED: SODIUM CHLORID 0.9% 500 ML INJ 500 ML IV ONE (16:15)
[2017-10-08] MEDS ORDERED: SODIUM POLYSTYRENE SULFONATE SUSP 15 GM/60 ML CUP PO ONE (16:30)
[2017-10-08] MEDS ORDERED: SODIUM CHLORIDE 0.9% FLUSH 10 ML FLUSH IV FLUSH PRN (17:15)
[2017-10-08] MEDS ORDERED: cloNIDine HCL 0.1 MG TAB PO PRN (17:30)
[2017-10-08] MEDS ORDERED: MORPHINE SULFATE 4 MG/ML INJ IV PUSH PRN (17:30)
[2017-10-08] MEDS ORDERED: hydrALAZINE HCL 20 MG/ML VIAL IV PUSH ONE (17:30)
--- NOTE | 2017-10-08 17:35 | HHI.HP ---
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 The patient reports that the pain started in her neck and radiated to the epigastric area at which time she experienced nausea. She states the pain then progressed to the left anterior chest wall and radiated down the left arm. She reports being diaphoretic and lightheaded during this time. She denies any shortness of breath. Nitroglycerin patch placed in the emergency department which alleviated the chest pain. Initial troponin less than 0.02. EKG shows a paced rhythm without any ST segment elevations or depressions. Other lab values significant for leukocytosis of 13.2, hyperkalemia with a potassium of 5.8 and a creatinine of 1.15 (baseline approximately 1.2) Review of Systems Denies fever or chills Denies blurry vision, otorrhea, rhinorrhea Denies sore throat and cough Positive chest pain No abdominal pain Denies constipation/diarrhea/vomiting. 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 CABG 2 in 2011 Colostomy/colon resection for colon cancer in 2002 Hysterectomy and oophorectomy Cholecystectomy Appendectomy Tonsillectomy Reported Medications Reported Meds & Active Scripts Active Reported Methylprednisolone 8 Mg Tab 4 Mg PO BID Temazepam 15 Mg Cap 15 Mg PO DAILY Metoprolol Succinate ER 24 HR (Metoprolol Succinate) 25 Mg Tab 25 Mg PO BID Allergies: Coded Allergies: erythromycin base (Verified Allergy, Severe, RASH, 10/08/17) ibuprofen (Verified Allergy, Severe, RASH, 10/08/17) amiodarone (Unverified Adverse Reaction, Severe, tremors off balance vomiting, 06/22/17) Family History Paternal grandfather with diabetes mellitus Social History Quit tobacco in 1984. 1-2 glasses of wine daily. Denies illicit drugs Physical Exam Vital Signs Vital Signs Date Time Temp Pulse Resp B/P (MAP) Pulse Ox O2 Delivery O2 Flow Rate FiO2 10/08/17 16:19 97.8 60 16 172/76 (108) 100 Room Air 10/08/17 15:33 97.8 60 17 187/86 (119) 100 Room Air 10/08/17 14:44 100 10/08/17 14:44 17 100 Room Air 10/08/17 14:40 60 17 189/86 (120) 100 Room Air 198/81 (120) 10/08/17 14:12 60 17 100 Room Air 10/08/17 14:11 97.8 60 17 236/102 (146) 100 Physical Exam GENERAL: Elderly female sitting up in bed SKIN: No rashes, ecchymoses or lesions. Cool and dry. HEAD: Atraumatic. Normocephalic. No temporal or scalp tenderness. EYES: Pupils equal round and reactive. Extraocular motions intact. No scleral icterus. No injection or drainage. ENT: Nose without bleeding, purulent drainage or septal hematoma. Throat without erythema, tonsillar hypertrophy or exudate. Uvula midline. Airway patent. NECK: Trachea midline. No JVD or lymphadenopathy. Supple, nontender, no meningeal signs. CARDIOVASCULAR: Regular rate and rhythm without murmurs, gallops, or rubs. RESPIRATORY: Clear to auscultation. Breath sounds equal bilaterally. No wheezes , rales, or rhonchi. GASTROINTESTINAL: Abdomen soft, non-tender, nondistended. No hepato-splenomegaly , or palpable masses. No guarding. MUSCULOSKELETAL: Extremities without clubbing, cyanosis, or edema. No joint tenderness, effusion, or edema noted. No calf tenderness. NEUROLOGICAL: Awake and alert. Cranial nerves II through XII intact. Motor and sensory grossly within normal limits. Normal speech. Laboratory Laboratory Tests Test 10/08/17 14:43 White Blood Count 13.2 Red Blood Count 4.33 Hemoglobin 13.3 Hematocrit 40.2 Mean Corpuscular Volume 93.0 Mean Corpuscular Hemoglobin 30.7 Mean Corpuscular Hemoglobin Concent 33.0 Red Cell Distribution Width 15.0 Platelet Count 163 Mean Platelet Volume 7.8 Neutrophils (%) (Auto) 87.4 Lymphocytes (%) (Auto) 6.7 Monocytes (%) (Auto) 5.2 Eosinophils (%) (Auto) 0.2 Basophils (%) (Auto) 0.5 Neutrophils # (Auto) 11.6 Lymphocytes # (Auto) 0.9 Monocytes # (Auto) 0.7 Eosinophils # (Auto) 0.0 Basophils # (Auto) 0.1 CBC Comment AUTO DIFF Differential Total Cells Counted 100 Neutrophils % (Manual) 79 Band Neutrophils % 7 Lymphocytes % 7 Monocytes % 7 Neutrophils # (Manual) 11.4 Differential Comment FINAL DIFF MANUAL Platelet Estimate NORMAL Platelet Morphology Comment NORMAL Red Cell Morphology Comment NORMAL Prothrombin Time 10.0 Prothromb Time International Ratio 1.0 Activated Partial Thromboplast Time 22.0 Blood Urea Nitrogen 39 Creatinine 1.15 Random Glucose 85 Total Protein 6.6 Albumin 4.0 Calcium Level 8.7 Magnesium Level 2.1 Alkaline Phosphatase 78 Aspartate Amino Transf (AST/SGOT) 21 Alanine Aminotransferase (ALT/SGPT) 26 Total Bilirubin 1.3 Sodium Level 132 Potassium Level 5.8 Chloride Level 101 Carbon Dioxide Level 23.1 Anion Gap 8 Estimat Glomerular Filtration Rate 46 Total Creatine Kinase 30 Troponin I LESS THAN 0.02 B-Type Natriuretic Peptide 143 Lipase 211 Result Diagram: 10/08/17 1443 10/08/17 1443 Caprini VTE Risk Assessment Caprini VTE Risk Assessment: Mod/High Risk (score >= 2) Caprini Risk Assessment Model Point Value = 1 Point Value = 2 Point Value = 3 Point Value = 5 Age 41-60 Minor surgery BMI > 25 kg/m2 Swollen legs Varicose veins or History of unexplained or recurrent spontaneous Oral contraceptives or hormone replacement Sepsis (< 1 month) Serious lung disease, including pneumonia (< 1 month) Abnormal pulmonary function Acute myocardial infarction Congestive heart failure (< 1 month) History of inflammatory bowel disease Medical patient at bed rest Age 61-74 Arthroscopic surgery Major open surgery (> 45 min) Laparoscopic surgery (> 45 min) Malignancy Confined to bed (> 72 hours) Immobilizing plaster cast Central venous access Age >= 75 History of VTE Family history of VTE Factor V Leiden Prothrombin [id number] Lupus anticoagulant Anticardiolipin antibodies Elevated serum homocysteine Heparin-induced thrombocytopenia Other congenital or acquired thrombophilia Stroke (< 1 month) Elective arthroplasty Hip, pelvis, or leg fracture Acute spinal cord injury (< 1 month) Prophylaxis Regimen Total Risk Factor Score Risk Level Prophylaxis Regimen 0-1 Low Early ambulation 2 Moderate Order ONE of the following: *Sequential Compression Device (SCD) *Heparin 5000 units SQ BID 3-4 Higher Order ONE of the following medications: *Heparin 5000 units SQ TID *Enoxaparin/Lovenox 40 mg SQ daily (WT < 150 kg, CrCl > 30 mL/min) *Enoxaparin/Lovenox 30 mg SQ daily (WT < 150 kg, CrCl > 10-29 mL/min) *Enoxaparin/Lovenox 30 mg SQ BID (WT < 150 kg, CrCl > 30 mL/min) AND/OR *Sequential Compression Device (SCD) 5 or more Highest Order ONE of the following medications: *Heparin 5000 units SQ TID (Preferred with Epidurals) *Enoxaparin/Lovenox 40 mg SQ daily (WT < 150 kg, CrCl > 30 mL/min) *Enoxaparin/Lovenox 30 mg SQ daily (WT < 150 kg, CrCl > 10-29 mL/min) *Enoxaparin/Lovenox 30 mg SQ BID (WT < 150 kg, CrCl > 30 mL/min) AND *Sequential Compression Device (SCD) Assessment and Plan Assessment and Plan 77-year-old female with a past medical history significant for CAD status post CABG, hypertension, CHF (EF of 50-55% in 2016), hyperlipidemia, chronic kidney disease, history of colon cancer status post resection/colostomy and 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 1. 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 Gonzalez EKG showed paced rhythm without ST segment elevations or depressions, reviewed by me Initial troponin negative ACS rule out pending; serial troponins/EKGs 2. Hypertension Patient remains hypertensive in the ED Hydralazine Clonidine when necessary Continue home metoprolol Monitor 3. CKD Creatinine 1.15, baseline 1.22 Avoid nephrotoxic agents Monitor renal function 4. Hyperkalemia Potassium 5.8 without EKG changes Follow-up BMP 5. Arthritis Patient on methylprednisolone for acute arthritis flare Continue FEN Heart healthy diet Electrolytes: as above Heparin Earlene Manzano MD Oct 08, 2017 17:35
[2017-10-08] MEDS ORDERED: methylPREDNISolone 4 MG TAB PO SCH (21:00)
[2017-10-08] MEDS: HEPARIN SODIUM - SQ 10,000 UNITS/ML VIAL SQ SCH (22:00)
[2017-10-08 22:22] LABS: CREATINE KINASE 22 U/L (26-192)
[2017-10-08] MEDS: SODIUM CHLORIDE 0.9% FLUSH 10 ML FLUSH IV FLUSH SCH (22:40)
[2017-10-08] MEDS: TEMAZEPAM 15 MG CAP PO SCH (22:40)
[2017-10-08] MEDS: METOPROLOL SUCCINATE 25 MG EXTENDED RELEASE TAB PO SCH (22:40)
[2017-10-09] VITALS (16 sets, daily range): BP systolic 129–199; BP diastolic 60–88; PULSE 58–80; RESP 18–24; TEMP 97.4–99.1; O2SAT 95–99
[2017-10-09] MEDS ORDERED: CROMOLYN SODIUM 5.2 MG/ACT 13 ML NASAL SPRAY NASAL SCH (02:30)
[2017-10-09] MEDS: FLUTICASONE PROPIONATE 50 MCG/ACT 16 GM NASAL SPRAY NASAL SCH ×3 (03:30→22:47)
[2017-10-09 04:14] LABS: CREATINE KINASE 19 U/L (26-192)
[2017-10-09] MEDS: ACETAMINOPHEN 500 MG CPLT PO PRN ×2 (05:51→15:54)
[2017-10-09] MEDS: methylPREDNISolone 4 MG TAB PO SCH ×2 (05:51→18:00)
[2017-10-09] MEDS: HEPARIN SODIUM - SQ 10,000 UNITS/ML VIAL SQ SCH (05:52)
[2017-10-09] MEDS: SODIUM CHLORIDE 0.9% FLUSH 10 ML FLUSH IV FLUSH SCH ×2 (08:59→21:00)
[2017-10-09] MEDS: METOPROLOL SUCCINATE 25 MG EXTENDED RELEASE TAB PO SCH ×2 (08:59→22:46)
[2017-10-09] MEDS ORDERED: NITROGLYCERIN 2% OINT 1 GM PACKET TOPICAL SCH (12:00)
--- NOTE | 2017-10-09 12:37 | HHI.PR ---
Subjective Remarks Follow-up atypical chest pain 10/09/17-patient seen and examined, very upset that she hasn't been seen by cardiology yet. Reports no chest pain since admission. Objective Vitals Vital Signs Date Time Temp Pulse Resp B/P (MAP) Pulse Ox O2 Delivery O2 Flow Rate FiO2 10/09/17 11:30 98.3 60 22 184/77 (112) 97 10/09/17 08:20 60 10/09/17 07:42 98.6 58 22 182/70 (107) 95 10/09/17 06:52 14 10/09/17 04:24 61 10/09/17 03:08 97.9 60 18 161/70 (100) 98 10/09/17 00:51 97.9 61 18 129/60 (83) 97 10/09/17 00:00 60 10/08/17 22:42 64 140/62 (88) 98 10/08/17 22:28 69 10/08/17 20:30 78 18 196/79 (118) 98 10/08/17 18:19 97.8 62 16 176/77 (110) 99 10/08/17 16:19 97.8 60 16 172/76 (108) 100 Room Air 10/08/17 15:33 97.8 60 17 187/86 (119) 100 Room Air 10/08/17 14:44 100 10/08/17 14:44 17 100 Room Air 10/08/17 14:40 60 17 189/86 (120) 100 Room Air 198/81 (120) 10/08/17 14:12 60 17 100 Room Air 10/08/17 14:11 97.8 60 17 236/102 (146) 100 I/O 10/08/17 10/08/17 10/08/17 10/09/17 10/09/17 10/09/17 07:00 15:00 23:00 07:00 15:00 23:00 Intake Total 500 ml 240 ml Output Total 1200 ml Balance 500 ml 240 ml -1200 ml Intake Oral 240 ml IV Total 500 ml Output Urine Total 1200 ml # Voids 2 2 Result Diagram: 10/08/17 1443 10/08/17 1443 Imaging Last Impressions Chest X-Ray 10/08/17 1439 Signed Impressions: Service Date/Time: Sunday, October 08, 2017 14:49 - CONCLUSION: 1. No acute abnormality or significant interval change. Cordell Hall MD Objective Remarks GENERAL: NAD SKIN: Warm and dry. HEAD: Normocephalic. EYES: No scleral icterus. No injection or drainage. NECK: Supple, trachea midline. No JVD or lymphadenopathy. CARDIOVASCULAR: Regular rate and rhythm without murmurs, gallops, or rubs. RESPIRATORY: Breath sounds equal bilaterally. No accessory muscle use. GASTROINTESTINAL: Abdomen soft, non-tender, nondistended. MUSCULOSKELETAL: No cyanosis, or edema. BACK: Nontender without obvious deformity. No CVA tenderness. A/P Problem List: (1) Chest pain ICD Code: R07.9 - Chest pain, unspecified Status: Acute (2) Hyperkalemia ICD Code: E87.5 - Hyperkalemia Status: Acute Assessment and Plan 77 year-old female with 1. 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 Gonzalez ACS ruled out per protocol with serial cardiac enzyme and EKGs Awaiting for cardiology consultation Continue current medical management 2. Hypertension Labile BP Start hydralazine 50 mg every 12 hours now Clonidine when necessary Continue home metoprolol Monitor 3. CKD Creatinine 1.15, baseline 1.22 Avoid nephrotoxic agents Monitor renal function 4. Hyperkalemia Status post Kayexalate 1, repeat BMP 5. Arthritis Continue methylprednisolone Problem Qualifiers (1) Chest pain: Qualified Codes: R07.9 - Chest pain, unspecified Melvin Rios MD Oct 09, 2017 12:37
[2017-10-09] MEDS: hydrALAZINE HCL 50 MG TAB PO SCH ×2 (13:53→22:46)
[2017-10-09 14:30] LABS: AUTOMATED NEUTROPHIL # 6.9 TH/MM3 (1.8-7.7); BASOPHIL % 0.3 % (0.0-2.0); EOSINOPHIL % 0.6 % (0.0-4.0); HEMATOCRIT 35.9 % (35.0-46.0); HEMO FLAGS DIFF FINAL; LYMPHOCYTE # 0.6 TH/MM3 (1.0-4.8); MEAN CELL VOLUME 92.1 FL (80.0-100.0); MEAN CORPUSCULAR HEMOGLOBIN 31.4 PG (27.0-34.0); MONO % 5.8 % (0.0-8.0); NEUT % 85.3 % (16.0-70.0); PLATELET COUNT 121 TH/MM3 (150-450); RED BLOOD COUNT 3.89 MIL/MM3 (4.00-5.30); RED CELL DISTRIBUTION WIDTH 14.7 % (11.6-17.2)
[2017-10-09 15:02] LABS: BICARBONATE 21.6 MEQ/L (21.0-32.0); POTASSIUM 4.1 MEQ/L (3.5-5.1)
--- NOTE | 2017-10-09 15:23 | MB ---
cc: ANA RUBIN DINESH MD DATE OF CONSULTATION: 10/09/2017. IMPRESSIONS: 1. Recurrent angina. 2. History of esophageal spasm. 3. Known coronary artery disease, history of coronary bypass grafting surgery in 2011. 4. History of cardiac arrest when the patient was hospitalized for meningitis / encephalitis. 5. Dyslipidemia. 6. History of colon cancer status post colon resection with colostomy. 7. Hypertension. 8. Chronic renal failure. RECOMMENDATIONS: 1. Continue the patient's home medicines. 2. Resume aspirin. She had stopped this because of easy bruising 3. She has ruled out for acute myocardial infarction. I would recommend functional testing the form of a nuclear stress test. 4. Continue metoprolol. 5. Lipid profile. The patient is not on a statin currently. CLINICAL DATA: The patient is a 77-year-old female admitted with chest pain. She states she woke up Tuesday and she felt puny. She states she has felt this way consistently since she was hospitalized for encephalitis / meningitis. She apparently developed discomfort that she describes as beginning in her epigastric area but then it radiated into the left side of her chest and a little bit into her arm. She had some pyrosis. She did not break out into a sweat. She states she was mildly short of breath. She took four sublingual nitroglycerin over a period of an hour. The discomfort apparently was persistent and she came to the emergency room. Admitting EKG demonstrated an atrial paced rhythm with no S-T-T changes. She has had three negative sets of cardiac enzymes. She has known coronary artery disease and is status post double vessel coronary bypass grafting surgery, target vessels unknown. She states she has had congestive heart failure and she has had apparently sick sinus syndrome and tells me that she had four cardiac arrests at one time requiring cardioversion. She has no history of rheumatic fever or scarlet fever. She has no history of seizure disorder but states she was told by a neurologist that she did have a small stroke. She has no history of asthma or bronchitis or emphysema. There is no history of overt peptic ulcer disease. There is a history of colon cancer. There is no history of liver disease. She does have chronic renal failure, which appears to be mild. PAST SURGICAL HISTORY: Her surgical history includes: 1. Coronary artery bypass grafting surgery. 2. Colon resection with colostomy. 3. Hysterectomy. 4. Oophorectomy. 5. Cholecystectomy. 6. Appendectomy. 7. Tonsillectomy. 8. She had a permanent dual-chamber pacemaker placed five weeks ago. ALLERGIES: SHE HAS ALLERGIES TO: 1. ERYTHROMYCIN. 2. IBUPROFEN. 3. AMIODARONE. REVIEW OF SYSTEMS: She has had no recent syncope. She has had no palpitations. She has had no transient neurological deficits or amaurosis fugax. She has had no lower extremity edema or claudication symptoms. PHYSICAL EXAMINATION: GENERAL: The physical exam at this time demonstrates an alert oriented female sitting up in bed and breathing room air. She is not dyspneic or tachypneic. VITAL SIGNS: She is in a normal rhythm. Last blood pressure 182/70, heart rate is 60. HEAD, EYES, EARS, NOSE, THROAT: The sclerae are nonicteric. NECK: Jugular venous pressures are normal. There are no carotid bruits. No thyromegaly. LUNGS: She has clear lung horton. CARDIAC: Regular rate and rhythm. No clicks, rubs or gallops. There is a 1/6 systolic ejection murmur. ABDOMEN: Abdomen soft and nontender. EXTREMITIES: Free of cyanosis, clubbing or edema. RADIOLOGICAL STUDIES: Chest x-ray unremarkable. EKGS: EKG shows atrial paced rhythm. Her second EKG does demonstrate some nonspecific S-T-T changes but no evolutionary changes were noted this morning. LABORATORY EVALUATION: Cardiac enzymes are normal. Lytes 132, 5.8, 101, 23 with a BUN of 39, creatinine 1.15. Lipase was normal. White cell count 13,200, hematocrit 40%, platelet count is 163,000. DISCUSSION: A 77-year-old female with known coronary artery disease admitted with recurrent chest pain. She has ruled out for acute myocardial infarction and has a normal exam and unremarkable EKG. RECOMMENDATIONS: As noted above. DO CYNDY Knight/MICHAEL /2:41 PM /3:08 PM
[2017-10-09] MEDS ORDERED: ACETAMINOPHEN/HYDROcodone 325 MG/7.5 MG TAB PO PRN (17:15)
[2017-10-09] MEDS ORDERED: guaiFENesin/DEXTROMETHORPHAN 200 MG/20 MG/10 ML CUP PO PRN (17:15)
[2017-10-09] MEDS ORDERED: ASPIRIN EC 81 MG TABEC PO ONE (17:15)
[2017-10-09] MEDS ORDERED: ONDANSETRON HCL 4 MG/2 ML VIAL IV PUSH PRN (17:15)
[2017-10-09] MEDS ORDERED: ACETAMINOPHEN/HYDROcodone 325 MG/5 MG TAB PO PRN (17:15)
--- NOTE | 2017-10-09 19:04 | HHI.PR ---
Addendum Remarks Renee RN informs me patient has intractable headache after starting on nitro paste and has now vomited x3. Nausea not relieved by IV Zofran. Strongly suspect symptoms related to nitro paste however the patient does have a history of encephalitis and states her symptoms are similar (intermittent sharp pains at right temporal region and subsequent nausea/vomiting). Likely unable to have LP secondary to receiving full strength aspirin on 12. Will check blood cultures, repeat CBC in am. Start gentle IVF hydration, caution with history of CHF. Phenergan IM prn nausea/vomiting if not relieved by IV Zofran. Consider LP tomorrow if symptoms persist despite discontinuation of nitro. Izabella Figueroa PA-C Oct 09, 2017 19:04
[2017-10-09] MEDS ORDERED: SODIUM CHLOR 0.9% 1000 ML INJ 1,000 ML IV SCH (19:15)
[2017-10-09] MEDS: PROMETHAZINE INJ 25 MG/ML VIAL IM PRN (19:29)
--- NOTE | 2017-10-09 20:56 | RADRPT ---
EXAM DATE/TIME: 10/09/2017 20:47 [facility] COMPARISON: CT BRAIN W/O CONTRAST, October 31, 2016, 16:34. INDICATIONS : Headache. RADIATION DOSE: 32.89 CTDIvol (mGy) MEDICAL HISTORY : Cerebrovascular disease. Congestive heart failure. Renal failure, chronic.colon CA, Hypertension, ref lux SURGICAL HISTORY : CABG Cholecystectomy. ENCOUNTER: Initial ACUITY: 1 day PAIN SCALE: 6/10 LOCATION: cranial TECHNIQUE: Multiple contiguous axial images were obtained of the head. Using automated exposure control and adj ustment of the mA and/or kV according to patient size, radiation dose was kept as low as reasonably a chievable to obtain optimal diagnostic quality images. DICOM format image data is available electro nically for review and comparison. FINDINGS: CEREBRUM: The ventricles are normal for age. No evidence of midline shift, mass lesion, hemorrhage or acute in farction. No extra-axial fluid collections are seen. Right temporal lobe encephalomalacia again note d. POSTERIOR FOSSA: The cerebellum and brainstem are intact. The 4th ventricle is midline. The cerebellopontine angle i s unremarkable. EXTRACRANIAL: There is mucoperiosteal thickening of the visualized ethmoid air cells. SKULL: The calvaria is intact. No evidence of skull fracture. CONCLUSION: 1. No acute intracranial abnormality. 2. Encephalomalacia of the right temporal lobe. 3. Mild sinus disease. Xavi Figueroa MD on October 09, 2017 at 20:53 Board Certified Radiologist. This report was verified electronically.
[2017-10-09] MEDS ORDERED: ACYCLOVIR IV SCH (21:00)
[2017-10-09] MEDS ORDERED: SODIUM CHLORIDE 0.9% IV SCH (21:00)
--- NOTE | 2017-10-09 22:20 | EKG ---
Date Performed: 10/09/2017 Time Performed: 01:00:25 PTAGE: 77 years EKG: ELECTRONIC ATRIAL PACEMAKER PROLONGED QT INTERVAL ABNORMAL ECG PREVIOUS TRACING : 10/08/2017 21.54 Compared to the previous tracing atrial pacemaker rhythm is new DOCTOR: Wale Sifuentes Interpretating Date/Time 10/09/2017 22:18:17
--- NOTE | 2017-10-09 22:31 | EKG ---
Date Performed: 10/08/2017 Time Performed: 21:54:31 PTAGE: 77 years EKG: Sinus rhythm MINIMAL ST DEPRESSION BORDERLINE ECG PREVIOUS TRACING : 10/08/2017 14.12 Compared to the previous tracing atrial pacemaker rhythm is no longer present DOCTOR: Wale Sifuentes Interpretating Date/Time 10/09/2017 22:30:13
[2017-10-09] MEDS: TEMAZEPAM 15 MG CAP PO SCH (22:46)
--- NOTE | 2017-10-09 22:46 | EKG ---
Date Performed: 10/08/2017 Time Performed: 14:12:05 PTAGE: 77 years EKG: ELECTRONIC ATRIAL PACEMAKER MODERATE ST DEPRESSION ABNORMAL ECG PREVIOUS TRACING : 07/15/2017 14.18 Compared to the previous tracing pacemaker rhythm is new DOCTOR: Wale Sifuentes Interpretating Date/Time 10/09/2017 22:45:01
[2017-10-10] VITALS (9 sets, daily range): BP systolic 124–143; BP diastolic 55–69; PULSE 61–77; RESP 17–20; TEMP 98.5–102; O2SAT 95–98
[2017-10-10] MEDS ORDERED: ACETAMINOPHEN 500 MG CPLT PO PRN (05:15)
[2017-10-10] MEDS: ACETAMINOPHEN 325 MG TAB PO PRN ×2 (06:03→17:09)
[2017-10-10] MEDS: methylPREDNISolone 4 MG TAB PO SCH ×2 (06:04→17:08)
--- NOTE | 2017-10-10 06:24 | RADRPT ---
EXAM DATE/TIME: 10/10/2017 05:45 [facility] COMPARISON: CHEST SINGLE AP, October 08, 2017, 14:49. INDICATIONS : Shortness of breath. MEDICAL HISTORY : Myocardial infarction. Stroke. Cardiovascular disease. Cerebrovascular disease. Congestive heart fail ure. SURGICAL HISTORY : CABG. Pacemaker. Cardiac stent. ENCOUNTER: Subsequent ACUITY: 1 week PAIN SCORE: 0/10 LOCATION: Bilateral chest FINDINGS: A single view of the chest demonstrates the lungs to be symmetrically aerated without evidence of mas s, infiltrate or effusion. The cardiomediastinal contours are unremarkable. The patient is again not ed to be status post median sternotomy. The left subclavian AV sequential transvenous pacer remains i n place. There are overlying electrocardiogram leads. Osseous structures are intact. CONCLUSION: No acute disease. Haider Conroy MD on October 10, 2017 at 6:22 Board Certified Radiologist. This report was verified electronically.
[2017-10-10 06:47] LABS: AUTOMATED NEUTROPHIL # 7.6 TH/MM3 (1.8-7.7); BASOPHIL % 0.3 % (0.0-2.0); EOSINOPHIL % 0.4 % (0.0-4.0); HEMATOCRIT 36.4 % (35.0-46.0); HEMO FLAGS DIFF FINAL; LYMPH % 9.1 % (9.0-44.0); LYMPHOCYTE # 0.9 TH/MM3 (1.0-4.8); MEAN CELL VOLUME 91.3 FL (80.0-100.0); MEAN CORPUSCULAR HGB CONC 33.9 % (32.0-36.0); MONO % 9.8 % (0.0-8.0); NEUT % 80.4 % (16.0-70.0); PLATELET COUNT 124 TH/MM3 (150-450); RED BLOOD COUNT 3.99 MIL/MM3 (4.00-5.30); RED CELL DISTRIBUTION WIDTH 14.4 % (11.6-17.2); WHITE BLOOD COUNT 9.5 TH/MM3 (4.0-11.0)
[2017-10-10 07:02] LABS: BICARBONATE 23.5 MEQ/L (21.0-32.0)
[2017-10-10] MEDS: SODIUM CHLORIDE 0.9% FLUSH 10 ML FLUSH IV FLUSH SCH ×2 (09:00→22:04)
[2017-10-10] MEDS ORDERED: ASPIRIN EC 81 MG TABEC PO SCH (09:00)
[2017-10-10] MEDS ORDERED: SODIUM CHLORIDE 0.9% IV SCH ×2 (09:00→13:00)
[2017-10-10] MEDS ORDERED: ACYCLOVIR IV SCH ×2 (09:00→13:00)
[2017-10-10] MEDS ORDERED: REGADENOSON INJ 0.4 MG/5 ML SYR ONE (11:44)
--- NOTE | 2017-10-10 13:08 | RADRPT ---
EXAM DATE/TIME: 10/10/2017 11:20 [facility] COMPARISON: CT ABDOMEN & PELVIS W CONTRAST, October 31, 2016, 16:39. CHEST SINGLE AP, October 10, 2017, 5:45. INDICATIONS : Substernal chest pain radiating to left arm with dyspnea. Angina. Coronary artery disease. DOSE: 26.2 mCi Tc99m Myoview at stress. 8.4 mCi Tc99m Myoview at rest. 0.4 mg Lexiscan STRESS SYMPTOMS: None noted. EJECTION FRACTION: 68% MEDICAL HISTORY : Hypertension. Renal failure, chronic. Carcinoma, colon. SURGICAL HISTORY : Hysterectomy. Colon resection. CABG Tonsillectomy, cholecystectomy and pacemaker. ENCOUNTER: Initial ACUITY: 1 day PAIN SCALE: 6/10 LOCATION: Substernal chest TECHNIQUE: The patient underwent pharmacologic stress with infusion of prescribed dose. Continuous ECG tracing was monitored during stress. Gated SPECT imaging was performed after stress and conventional SPECT i maging was performed at rest. The examination was performed on a SPECT/CT scanner, both attenuation and non-corrected datasets were reviewed. FINDINGS: DISTRIBUTION: The maximum perfused segment at stress is in the anterior wall. PERFUSION STUDY: The pattern of perfusion at stress is within normal limits with regional variations of perfusion with in 25%. There is decreased activity in the basal lateral segment on both the stress and rest datasets which correlates with diaphragmatic attenuation. The summed stress score is zero. GATED STUDY: There is intact wall motion and thickening without hypokinetic or dyskinetic segments. CONCLUSION: 1. No evidence of stress-induced ischemia. 2. Intact wall motion with 60% ejection fraction. RISK CATEGORY: Low (<1% Annual Mortality Rate) Pola Arriaga MD on October 10, 2017 at 12:48 Board Certified Radiologist. This report was verified electronically.
--- NOTE | 2017-10-10 14:04 | HHI.PR ---
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 The patient reports that the pain started in her neck and radiated to the epigastric area at which time she experienced nausea. She states the pain then progressed to the left anterior chest wall and radiated down the left arm. She reports being diaphoretic and lightheaded during this time. She denies any shortness of breath. Nitroglycerin patch placed in the emergency department which alleviated the chest pain. Initial troponin less than 0.02. EKG shows a paced rhythm without any ST segment elevations or depressions. Other lab values significant for leukocytosis of 13.2, hyperkalemia with a potassium of 5.8 and a creatinine of 1.15 (baseline approximately 1.2) 12-4 Follow up on patient with chest pain. Patient seen and examined. Had a stiff neck and headache yesterday, better today. Initial BCX negative, repeat BCX pending. Reports coughing up greenish sputum today. (+)fever 102 early this am. Denies any chest pain today. No dyspnea. Denies any nausea, vomiting or abdominal pain. MEDICATIONS ADJUSTED BY ID TO JUST LEVAQUIN Objective Vitals Vital Signs Date Time Temp Pulse Resp B/P (MAP) Pulse Ox O2 Delivery O2 Flow Rate FiO2 10/10/17 08:34 99.6 69 20 132/60 (84) 95 10/10/17 04:54 102.0 77 18 124/55 (78) 95 Manual Cuff/Auscultation 10/10/17 04:17 73 10/10/17 00:25 71 10/09/17 23:42 99.1 18 134/61 (85) 10/09/17 20:09 98.4 61 18 161/72 (101) 99 10/09/17 19:35 68 20 181/88 (119) 98 10/09/17 19:16 97.6 70 24 199/85 (123) 98 10/09/17 16:57 97.5 74 24 189/81 (117) 97 10/09/17 16:00 74 10/09/17 15:48 97.4 80 22 148/68 (94) 98 Automatic Cuff 10/09/17 14:05 178/78 (111) I/O 10/09/17 10/09/17 10/09/17 10/10/17 10/10/17 10/10/17 07:00 15:00 23:00 07:00 15:00 23:00 Intake Total 240 ml Output Total 1200 ml Balance 240 ml -1200 ml Intake Oral 240 ml Output Urine Total 1200 ml # Voids 2 2 3 Result Diagram: 10/10/17 0623 10/10/17 0623 Other Results Laboratory Tests Test 10/08/17 14:43 10/08/17 21:26 10/09/17 02:57 10/09/17 13:30 White Blood Count 13.2 TH/MM3 8.0 TH/MM3 Red Blood Count 4.33 MIL/MM3 3.89 MIL/MM3 Hemoglobin 13.3 GM/DL 12.2 GM/DL Hematocrit 40.2 % 35.9 % Mean Corpuscular Volume 93.0 FL 92.1 FL Mean Corpuscular Hemoglobin 30.7 PG 31.4 PG Mean Corpuscular Hemoglobin Concent 33.0 % 34.0 % Red Cell Distribution Width 15.0 % 14.7 % Platelet Count 163 TH/MM3 121 TH/MM3 Mean Platelet Volume 7.8 FL 8.0 FL Neutrophils (%) (Auto) 87.4 % 85.3 % Lymphocytes (%) (Auto) 6.7 % 8.0 % Monocytes (%) (Auto) 5.2 % 5.8 % Eosinophils (%) (Auto) 0.2 % 0.6 % Basophils (%) (Auto) 0.5 % 0.3 % Neutrophils # (Auto) 11.6 TH/MM3 6.9 TH/MM3 Lymphocytes # (Auto) 0.9 TH/MM3 0.6 TH/MM3 Monocytes # (Auto) 0.7 TH/MM3 0.5 TH/MM3 Eosinophils # (Auto) 0.0 TH/MM3 0.0 TH/MM3 Basophils # (Auto) 0.1 TH/MM3 0.0 TH/MM3 CBC Comment AUTO DIFF DIFF FINAL Differential Total Cells Counted 100 Neutrophils % (Manual) 79 % Band Neutrophils % 7 % Lymphocytes % 7 % Monocytes % 7 % Neutrophils # (Manual) 11.4 TH/MM3 Differential Comment FINAL DIFF MANUAL Platelet Estimate NORMAL Platelet Morphology Comment NORMAL Red Cell Morphology Comment NORMAL Prothrombin Time 10.0 SEC Prothromb Time International Ratio 1.0 RATIO Activated Partial Thromboplast Time 22.0 SEC Blood Urea Nitrogen 39 MG/DL 26 MG/DL Creatinine 1.15 MG/DL 1.21 MG/DL Random Glucose 85 MG/DL 137 MG/DL Total Protein 6.6 GM/DL Albumin 4.0 GM/DL Calcium Level 8.7 MG/DL 8.3 MG/DL Magnesium Level 2.1 MG/DL Alkaline Phosphatase 78 U/L Aspartate Amino Transf (AST/SGOT) 21 U/L Alanine Aminotransferase (ALT/SGPT) 26 U/L Total Bilirubin 1.3 MG/DL Sodium Level 132 MEQ/L 136 MEQ/L Potassium Level 5.8 MEQ/L 4.1 MEQ/L Chloride Level 101 MEQ/L 104 MEQ/L Carbon Dioxide Level 23.1 MEQ/L 21.6 MEQ/L Anion Gap 8 MEQ/L 10 MEQ/L Estimat Glomerular Filtration Rate 46 ML/MIN 43 ML/MIN Total Creatine Kinase 30 U/L 22 U/L 19 U/L Troponin I LESS THAN 0.02 NG/ML LESS THAN 0.02 NG/ML LESS THAN 0.02 NG/ML B-Type Natriuretic Peptide 143 PG/ML Lipase 211 U/L Test 10/10/17 06:23 White Blood Count 9.5 TH/MM3 Red Blood Count 3.99 MIL/MM3 Hemoglobin 12.4 GM/DL Hematocrit 36.4 % Mean Corpuscular Volume 91.3 FL Mean Corpuscular Hemoglobin 31.0 PG Mean Corpuscular Hemoglobin Concent 33.9 % Red Cell Distribution Width 14.4 % Platelet Count 124 TH/MM3 Mean Platelet Volume 7.8 FL Neutrophils (%) (Auto) 80.4 % Lymphocytes (%) (Auto) 9.1 % Monocytes (%) (Auto) 9.8 % Eosinophils (%) (Auto) 0.4 % Basophils (%) (Auto) 0.3 % Neutrophils # (Auto) 7.6 TH/MM3 Lymphocytes # (Auto) 0.9 TH/MM3 Monocytes # (Auto) 0.9 TH/MM3 Eosinophils # (Auto) 0.0 TH/MM3 Basophils # (Auto) 0.0 TH/MM3 CBC Comment DIFF FINAL Differential Comment Blood Urea Nitrogen 29 MG/DL Creatinine 1.35 MG/DL Random Glucose 105 MG/DL Calcium Level 8.1 MG/DL Sodium Level 135 MEQ/L Potassium Level 4.0 MEQ/L Chloride Level 102 MEQ/L Carbon Dioxide Level 23.5 MEQ/L Anion Gap 10 MEQ/L Estimat Glomerular Filtration Rate 38 ML/MIN Lactic Acid Level 1.4 mmol/L Triglycerides Level 197 MG/DL Cholesterol Level 218 MG/DL LDL Cholesterol 114 MG/DL HDL Cholesterol 65.0 MG/DL Cholesterol/HDL Ratio 3.35 RATIO Imaging Last Impressions Myocardial Perfusion Scan Nuc Med 10/10/17 0000 Signed Impressions: Service Date/Time: Tuesday, October 10, 2017 11:20 - CONCLUSION: 1. No evidence of stress-induced ischemia. 2. Intact wall motion with 60%% ejection fraction. RISK CATEGORY: Low (<1%% Annual Mortality Rate) Pola Arriaga MD Chest X-Ray 10/10/17 0000 Signed Impressions: Service Date/Time: Tuesday, October 10, 2017 05:45 - CONCLUSION: No acute disease. Haider Conroy MD Head CT 10/09/17 0000 Signed Impressions: Service Date/Time: Monday, October 09, 2017 20:47 - CONCLUSION: 1. No acute intracranial abnormality. 2. Encephalomalacia of the right temporal lobe. 3. Mild sinus disease. Xavi Figueroa MD Objective Remarks GENERAL: Well-nourished, well-developed patient in NAD. Awake and alert. Sister at the bedside. SKIN: Warm and dry. No rash. HEAD: Normocephalic. Atraumatic. EYES: Pupils equal and round. No scleral icterus. No injection or drainage. ENT: No nasal bleeding or discharge. Mucous membranes pink and moist. NECK: Trachea midline. CARDIOVASCULAR: Regular rate and rhythm. S1, S2 noted. No murmur appreciated. RESPIRATORY: Nonlabored. Clear to auscultation. Breath sounds equal bilaterally. GASTROINTESTINAL: Abdomen soft, non-tender, nondistended. Normoactive bowel sounds x4. MUSCULOSKELETAL: No obvious deformities. Extremities without clubbing, cyanosis , or edema. NEUROLOGICAL: Awake and alert. Able to move all extremities spontaneously. Nonfocal. Normal speech. PSYCHIATRIC: Appropriate mood and affect; insight and judgment normal. Procedures NONE Medications and IVs Current Medications Medications (Trade) Dose Ordered Sig/Shirley Route Start Time Stop Time Status Last Admin (NS Flush) 2 ml BID IV FLUSH 10/08/17 21:00 10/09/17 21:00 (NS Flush) 2 ml UNSCH PRN IV FLUSH 10/08/17 17:15 (Toprol Xl) 25 mg BID PO 10/08/17 21:00 10/09/17 22:46 (Restoril) 15 mg HS PO 10/08/17 21:00 10/09/17 22:46 (Morphine Inj) 2 mg Q3H PRN IV PUSH 10/08/17 17:30 10/09/17 19:25 (Catapres) 0.1 mg Q6H PRN PO 10/08/17 17:30 10/08/17 20:59 (Medrol) 4 mg Q12H PO 10/09/17 06:00 10/10/17 06:04 (Flonase Erwin Spr) 1 spray BID NASAL 10/09/17 03:15 10/09/17 22:47 (Apresoline) 50 mg Q12HR PO 10/09/17 12:45 10/09/17 22:46 (Zofran Inj) 4 mg Q6H PRN IV PUSH 10/09/17 17:15 10/09/17 18:27 ([place] 5-325 Mg) 1 tab Q4H PRN PO 10/09/17 17:15 ([place] 7.5-325 Mg) 1 tab Q4H PRN PO 10/09/17 17:15 (Robitussin Dm 200-20 Mg/10 ml Liq) 10 ml Q4H PRN PO 10/09/17 17:15 (Ecotrin Ec) 81 mg DAILY PO 10/10/17 09:00 Future Hold (Phenergan Inj) 25 mg Q6H PRN IM 10/09/17 19:00 10/09/17 19:29 (Tylenol) 650 mg Q4H PRN PO 10/10/17 05:45 10/10/17 06:03 Acyclovir Sodium 930 mg/Sodium Chloride 150 ml @ 150 mls/hr Q12H IV 10/10/17 13:00 A/P Problem List: (1) Chest pain ICD Code: R07.9 - Chest pain, unspecified Status: Acute (2) Hyperkalemia ICD Code: E87.5 - Hyperkalemia Status: Acute Assessment and Plan 77yo female with PMHX of CAD s/p CABG, HTN, CHF, HLD, CKD, hx of colon cancer s/ p resection/colostomy and 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 1. 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 Gonzalez ASA daily Morphine 2mg q3h prn chest pain EKG showed paced rhythm without ST segment elevations or depressions, reviewed by me Troponin negative x 3 Cardiology consulted, appreciate assistance. MPS completed showing no signs of ischemia and EF 60%. 2. Fever, neck pain, headache, N/V Hx of HSV encephalitis 2016 Tmax 102 Lactic acid 1.4 initial BCX negative x 1 day, repeat BCX pending IVF UA ordered/specimen pending Started on IV Acyclovir, continue.--STOPPED BY ID Improving ID consulted, appreciate assistance continue supportive care STARTED ON LEVAQUIN 3. Bronchitis with greenish sputum production CXR showing no acute disease, images personally reviewed Obtain sputum culture Start Levaquin 750mg po daily, Mucinex ER 600mg po BID IS to bedside, encourage use monitor respiratory status, currently satting 95% on RA 4. Hypertension controlled Continue Hydralazine 50mg po BID Clonidine when necessary Continue home metoprolol 25mg po BID Monitor 5. CKD Creatinine 1.15, baseline 1.22 Avoid nephrotoxic agents Monitor renal function 6. Hyperkalemia Potassium 5.8 without EKG changes resolved 7. Arthritis Patient on methylprednisolone for acute arthritis flare Continue PT/OT 8. Thrombocytopenia mild monitor repeat CBC in am Discussed with patient, sister, nursing staff and Dr. Corona AM LABS Discharge Planning PENDING CULTURES AND ID INPUT CARDIAC CLEARED Attending Statement The exam, history, and the medical decision-making described in the above note were completed with the assistance of the mid-level provider. I reviewed and agree with the findings presented. I attest that I had a [id number] encounter with the patient on the same day, and personally performed and documented my assessment and findings in the medical record. Problem Qualifiers (1) Chest pain: Qualified Codes: R07.9 - Chest pain, unspecified Lupe Vega Oct 10, 2017 14:04 Elijah Corona DO Oct 10, 2017 15:09
[2017-10-10] MEDS ORDERED: guaiFENesin E.R. 600 MG TAB PO ONE (14:15)
[2017-10-10] MEDS ORDERED: LEVOFLOXACIN 750 MG TAB PO ONE (14:15)
[2017-10-10] MEDS: FLUTICASONE PROPIONATE 50 MCG/ACT 16 GM NASAL SPRAY NASAL SCH ×2 (14:36→22:04)
[2017-10-10] MEDS: hydrALAZINE HCL 50 MG TAB PO SCH ×2 (14:37→22:05)
[2017-10-10] MEDS: METOPROLOL SUCCINATE 25 MG EXTENDED RELEASE TAB PO SCH ×2 (14:38→22:05)
--- NOTE | 2017-10-10 14:38 | PD.CONS ---
History of Present Illness Service Infectious disease Consult Requested By Dr Corona Reason for Consult Evaluate patient with fever Primary Care Physician Roly Shultz DO Diagnoses: History of Present Illness Patient seen and examined. Records reviewed. Patient is a 77-year-old female, presented to the hospital admitted to the hospital for further evaluation of chest pain. Her pain apparently initially started in the neck area then went down and ultimately stayed in the chest. She had some shortness of breath. She also had some diaphoresis and some lightheadedness. She has prior history of CABG and previous MN. She was given sublingual nitroglycerin in the emergency room and the pain improved. Patient currently has been chest pain-free. Apparently yesterday she was started on topical nitrates, and that was the first time she has had topical nitrates. Soon after that she started getting severe headache especially on the right side. It was stopped, and her headache improved. Currently she has no headache. This morning she had a fever of 102. Patient apparently has been having some cough for the last week productive of some yellowish phlegm. She has not had any fever or chills at home. 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 Patient's chest x- ray is read as normal with no acute infiltrate. She has not had any nausea or vomiting, is voiding okay. Infectious disease consultation is requested to evaluate the patient with fever , and prior history of HSV encephalitis. Review of Systems Constitutional: COMPLAINS OF: Fever, DENIES: Chills, Night Sweats Eyes: DENIES: Eye pain, Photosensitivity Ears, nose, mouth, throat: DENIES: Oral lesions, Throat pain, Ear Pain, Sinus Pain, Toothache Respiratory: COMPLAINS OF: Cough, Shortness of breath Cardiovascular: COMPLAINS OF: Chest pain, DENIES: Syncope Gastrointestinal: DENIES: Abdominal pain, Nausea, Vomiting, Difficulty Swallowing Genitourinary: DENIES: Urinary frequency, Urgency Musculoskeletal: DENIES: Joint pain, Joint Swelling, Back pain Integumentary: DENIES: Rash Neurologic: COMPLAINS OF: Headache, DENIES: Localized weakness Psychiatric: DENIES: Confusion, Hallucinations Past Family Social History Allergies: Coded Allergies: erythromycin base (Verified Allergy, Severe, RASH, 10/08/17) ibuprofen (Verified Allergy, Severe, RASH, 10/08/17) amiodarone (Unverified Adverse Reaction, Severe, tremors off balance vomiting, 06/22/17) Past Medical History Coronary artery disease status post CABG, previous [place] 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 Reported Meds & Active Scripts Active Reported Methylprednisolone 8 Mg Tab 4 Mg PO BID Temazepam 15 Mg Cap 15 Mg PO DAILY Metoprolol Succinate ER 24 HR (Metoprolol Succinate) 25 Mg Tab 25 Mg PO BID Active Ordered Medications Current Medications Medications (Trade) Dose Ordered Sig/Shirley Route Start Time Stop Time Status Last Admin (NS Flush) 2 ml BID IV FLUSH 10/08/17 21:00 10/09/17 21:00 (NS Flush) 2 ml UNSCH PRN IV FLUSH 10/08/17 17:15 (Toprol Xl) 25 mg BID PO 10/08/17 21:00 10/09/17 22:46 (Restoril) 15 mg HS PO 10/08/17 21:00 10/09/17 22:46 (Morphine Inj) 2 mg Q3H PRN IV PUSH 10/08/17 17:30 10/09/17 19:25 (Catapres) 0.1 mg Q6H PRN PO 10/08/17 17:30 10/08/17 20:59 (Medrol) 4 mg Q12H PO 10/09/17 06:00 10/10/17 06:04 (Flonase Erwin Spr) 1 spray BID NASAL 10/09/17 03:15 10/09/17 22:47 (Apresoline) 50 mg Q12HR PO 10/09/17 12:45 10/09/17 22:46 (Zofran Inj) 4 mg Q6H PRN IV PUSH 10/09/17 17:15 10/09/17 18:27 ([place] 5-325 Mg) 1 tab Q4H PRN PO 10/09/17 17:15 ([place] 7.5-325 Mg) 1 tab Q4H PRN PO 10/09/17 17:15 (Robitussin Dm 200-20 Mg/10 ml Liq) 10 ml Q4H PRN PO 10/09/17 17:15 (Ecotrin Ec) 81 mg DAILY PO 10/10/17 09:00 Future Hold (Phenergan Inj) 25 mg Q6H PRN IM 10/09/17 19:00 10/09/17 19:29 (Tylenol) 650 mg Q4H PRN PO 10/10/17 05:45 10/10/17 06:03 Acyclovir Sodium 930 mg/Sodium Chloride 150 ml @ 150 mls/hr Q12H IV 10/10/17 13:00 (Levaquin) 750 mg DAILY PO 10/11/17 09:00 UNV (Levaquin) 750 mg ONCE ONCE PO 10/10/17 14:15 10/10/17 14:16 UNV (Mucinex Er) 600 mg BID PO 10/10/17 21:00 UNV (Mucinex Er) 600 mg ONCE ONCE PO 10/10/17 14:15 10/10/17 14:16 UNV Family History Fam Hx DM Social History Quit tobacco in 1984. 1-2 glasses of wine daily. Denies illicit drugs Physical Exam Vital Signs Vital Signs Date Time Temp Pulse Resp B/P (MAP) Pulse Ox O2 Delivery O2 Flow Rate FiO2 10/10/17 08:34 99.6 69 20 132/60 (84) 95 10/10/17 04:54 102.0 77 18 124/55 (78) 95 Manual Cuff/Auscultation 10/10/17 04:17 73 10/10/17 00:25 71 10/09/17 23:42 99.1 18 134/61 (85) 10/09/17 20:09 98.4 61 18 161/72 (101) 99 10/09/17 19:35 68 20 181/88 (119) 98 10/09/17 19:16 97.6 70 24 199/85 (123) 98 10/09/17 16:57 97.5 74 24 189/81 (117) 97 10/09/17 16:00 74 10/09/17 15:48 97.4 80 22 148/68 (94) 98 Automatic Cuff Physical Exam GENERAL: Patient is a well-nourished, well-developed female, awake and alert , not in respiratory distress. She does not look toxic appearing SKIN: Cool and dry. No generalized rash, no ecchymoses and no evidence of embolic lesions. HEAD: Atraumatic. Normocephalic. No temporal wasting, or tenderness. EYES: [place] conjunctiva. No petechia or hemorrhage. Pupils equal, round and reactive to light. Extraocular movements full and intact. No scleral icterus. No injection or drainage. EARS, NOSE AND THROAT: Nose without bleeding or purulent nasal discharge. No sinus tenderness. Mucous membranes pink and moist. No oral lesions noted. No exudate. No oral thrush. NECK: Trachea midline. Supple and not tender, no meningeal signs. No nuchal rigidity CARDIOVASCULAR: Regular rate and rhythm. No murmurs, rubs or gallops heard RESPIRATORY: Clear to auscultation. Breath sounds equal bilaterally. No rales , wheezing or rhonchi ABDOMEN: Soft, non-tender, nondistended. Bowel sounds present and normoactive. No guarding. No rebound. No organomegaly. EXTREMITIES: No clubbing, cyanosis, or edema.No joint effusion, has good ROM. No calf tenderness. Well perfused and warm. NEUROLOGICAL: Awake and alert. Cranial nerves grossly intact. Motor grossly within normal limits. PSYCHIATRIC: Normal affect, calm and cooperative. LINE: No evidence of infection Laboratory Laboratory Tests Test 10/10/17 06:23 White Blood Count 9.5 Red Blood Count 3.99 Hemoglobin 12.4 Hematocrit 36.4 Mean Corpuscular Volume 91.3 Mean Corpuscular Hemoglobin 31.0 Mean Corpuscular Hemoglobin Concent 33.9 Red Cell Distribution Width 14.4 Platelet Count 124 Mean Platelet Volume 7.8 Neutrophils (%) (Auto) 80.4 Lymphocytes (%) (Auto) 9.1 Monocytes (%) (Auto) 9.8 Eosinophils (%) (Auto) 0.4 Basophils (%) (Auto) 0.3 Neutrophils # (Auto) 7.6 Lymphocytes # (Auto) 0.9 Monocytes # (Auto) 0.9 Eosinophils # (Auto) 0.0 Basophils # (Auto) 0.0 CBC Comment DIFF FINAL Differential Comment Blood Urea Nitrogen 29 Creatinine 1.35 Random Glucose 105 Calcium Level 8.1 Sodium Level 135 Potassium Level 4.0 Chloride Level 102 Carbon Dioxide Level 23.5 Anion Gap 10 Estimat Glomerular Filtration Rate 38 Lactic Acid Level 1.4 Triglycerides Level 197 Cholesterol Level 218 LDL Cholesterol 114 HDL Cholesterol 65.0 Cholesterol/HDL Ratio 3.35 Date/Time Source Procedure Growth Status 10/10/17 06:36 Blood Peripheral Aerobic Blood Culture Pending Received 10/10/17 06:36 Blood Peripheral Anaerobic Blood Culture Pending Received Result Diagram: 10/10/17 0623 10/10/17 0623 Imaging RADIOLOGY STUDIES/FILMS REVIEWED Myocardial Perfusion Scan Nuc Med 10/10/17 0000 Signed Impressions: Service Date/Time: Tuesday, October 10, 2017 11:20 - CONCLUSION: 1. No evidence of stress-induced ischemia. 2. Intact wall motion with 60%% ejection fraction. RISK CATEGORY: Low (<1%% Annual Mortality Rate) Pola Arriaga MD Chest X-Ray 10/10/17 0000 Signed Impressions: Service Date/Time: Tuesday, October 10, 2017 05:45 - CONCLUSION: No acute disease. Haider Conroy MD Head CT 10/09/17 0000 Signed Impressions: Service Date/Time: Monday, October 09, 2017 20:47 - CONCLUSION: 1. No acute intracranial abnormality. 2. Encephalomalacia of the right temporal lobe. 3. Mild sinus disease. Xavi Figueroa MD Assessment and Plan Assessment and Plan IMPRESSION Fever, etiology? - has had cough, CXR clear - ?bronchitis - ?viral - clinically no evidence on [employer] infection Transient [place] resolved, likely due to nitrates Chest pain, resolved Known Hx CAD Hx HSV encephalitis treated in 2015 RECOMMENDATION UA and C/S Follow C/S Monitor temps Influenza Ag Continue Levaquin Stop Acyclovir Monitor progress I will follow along with you Thank you for this consultation Discussed Condition With Explained plan to patient and sister Anita Boateng MD Oct 10, 2017 14:38
[2017-10-10] MEDS ORDERED: LEVOFLOXACIN 500 MG TAB PO ONE (16:00)
[2017-10-10] MEDS: guaiFENesin E.R. 600 MG TAB PO SCH (22:05)
[2017-10-10] MEDS: TEMAZEPAM 15 MG CAP PO SCH (22:05)
[2017-10-10] MEDS: PROMETHAZINE INJ 25 MG/ML VIAL IM PRN (22:06)
[2017-10-10 22:47] LABS: BACTERIA, URINE RARE /hpf; BLOOD, URINE NEG (NEG); COMMENT (UR) CULTURE INDICATED; CULTURE IF INDICATED CULTURE INDICATED; GLUCOSE,URINE NEG (NEG); KETONE, URINE NEG (NEG); MUCUS URINE FEW /lpf (OCC); NITRITE,URINE NEG (NEG); SQUAMOUS EPITHELIAL CELL URINE 1 /hpf (0-5); URINE COLOR YELLOW (YELLW/STRAW)
[2017-10-11] VITALS (7 sets, daily range): BP systolic 129–191; BP diastolic 60–83; PULSE 60–71; RESP 17–20; TEMP 98–98.7; O2SAT 97–98
[2017-10-11 05:38] LABS: AUTOMATED NEUTROPHIL # 6.3 TH/MM3 (1.8-7.7); BASOPHIL % 0.2 % (0.0-2.0); EOSINOPHIL % 0.4 % (0.0-4.0); HEMATOCRIT 33.5 % (35.0-46.0); HEMO FLAGS DIFF FINAL; LYMPH % 11.8 % (9.0-44.0); LYMPHOCYTE # 0.9 TH/MM3 (1.0-4.8); MEAN CELL VOLUME 92.4 FL (80.0-100.0); MEAN CORPUSCULAR HEMOGLOBIN 31.2 PG (27.0-34.0); MEAN CORPUSCULAR HGB CONC 33.8 % (32.0-36.0); MONO % 9.8 % (0.0-8.0); NEUT % 77.8 % (16.0-70.0); PLATELET COUNT 108 TH/MM3 (150-450); RED BLOOD COUNT 3.62 MIL/MM3 (4.00-5.30); RED CELL DISTRIBUTION WIDTH 14.6 % (11.6-17.2)
[2017-10-11 06:05] LABS: BICARBONATE 23.7 MEQ/L (21.0-32.0); POTASSIUM 4.2 MEQ/L (3.5-5.1)
[2017-10-11] MEDS: methylPREDNISolone 4 MG TAB PO SCH (07:01)
[2017-10-11] MEDS: FLUTICASONE PROPIONATE 50 MCG/ACT 16 GM NASAL SPRAY NASAL SCH (09:00)
[2017-10-11] MEDS ORDERED: LEVOFLOXACIN 750 MG TAB PO SCH ×2 (09:00→11:30)
[2017-10-11] MEDS ORDERED: LEVOFLOXACIN 250 MG TAB PO SCH ×3 (09:00→16:00)
[2017-10-11] MEDS: METOPROLOL SUCCINATE 25 MG EXTENDED RELEASE TAB PO SCH (09:03)
[2017-10-11] MEDS: hydrALAZINE HCL 50 MG TAB PO SCH (09:03)
[2017-10-11] MEDS: guaiFENesin E.R. 600 MG TAB PO SCH (09:03)
[2017-10-11] MEDS: SODIUM CHLORIDE 0.9% FLUSH 10 ML FLUSH IV FLUSH SCH (09:04)
--- NOTE | 2017-10-11 14:12 | HHI.PR ---
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 The patient reports that the pain started in her neck and radiated to the epigastric area at which time she experienced nausea. She states the pain then progressed to the left anterior chest wall and radiated down the left arm. She reports being diaphoretic and lightheaded during this time. She denies any shortness of breath. Nitroglycerin patch placed in the emergency department which alleviated the chest pain. Initial troponin less than 0.02. EKG shows a paced rhythm without any ST segment elevations or depressions. Other lab values significant for leukocytosis of 13.2, hyperkalemia with a potassium of 5.8 and a creatinine of 1.15 (baseline approximately 1.2) 12- Follow up on patient with chest pain. Patient seen and examined. Had a stiff neck and headache yesterday, better today. Initial BCX negative, repeat BCX pending. Reports coughing up greenish sputum today. (+)fever 102 early this am. Denies any chest pain today. No dyspnea. Denies any nausea, vomiting or abdominal pain. MEDICATIONS ADJUSTED BY ID TO JUST LEVAQUIN 12-5 patient is feeling better. Wants to go home. Still having some cough and congestion. Is tolerating the Levaquin. Has been cleared by infectious disease. We'll continue on Levaquin for 10 more days. Objective Vitals Vital Signs Date Time Temp Pulse Resp B/P (MAP) Pulse Ox O2 Delivery O2 Flow Rate FiO2 10/11/17 11:48 98.1 60 19 134/62 (86) 97 10/11/17 10:36 71 10/11/17 09:58 149/67 (94) 10/11/17 08:36 98.0 68 20 191/83 (119) 98 10/11/17 03:48 60 10/11/17 00:55 98.7 60 17 129/60 (83) 97 10/11/17 00:26 63 10/10/17 21:33 98.5 61 17 143/69 (93) 97 10/10/17 20:36 63 10/10/17 18:09 16 10/10/17 15:56 99.9 68 18 136/64 (88) 96 10/10/17 14:50 63 10/10/17 14:27 99.1 61 142/65 (90) 98 I/O 10/10/17 10/10/17 10/10/17 10/11/17 10/11/17 10/11/17 07:00 15:00 23:00 07:00 15:00 23:00 # Voids 2 Result Diagram: 10/11/17 0500 10/11/17 0500 Other Results Laboratory Tests Test 10/08/17 14:43 10/08/17 21:26 10/09/17 02:57 10/09/17 13:30 White Blood Count 13.2 TH/MM3 8.0 TH/MM3 Red Blood Count 4.33 MIL/MM3 3.89 MIL/MM3 Hemoglobin 13.3 GM/DL 12.2 GM/DL Hematocrit 40.2 % 35.9 % Mean Corpuscular Volume 93.0 FL 92.1 FL Mean Corpuscular Hemoglobin 30.7 PG 31.4 PG Mean Corpuscular Hemoglobin Concent 33.0 % 34.0 % Red Cell Distribution Width 15.0 % 14.7 % Platelet Count 163 TH/MM3 121 TH/MM3 Mean Platelet Volume 7.8 FL 8.0 FL Neutrophils (%) (Auto) 87.4 % 85.3 % Lymphocytes (%) (Auto) 6.7 % 8.0 % Monocytes (%) (Auto) 5.2 % 5.8 % Eosinophils (%) (Auto) 0.2 % 0.6 % Basophils (%) (Auto) 0.5 % 0.3 % Neutrophils # (Auto) 11.6 TH/MM3 6.9 TH/MM3 Lymphocytes # (Auto) 0.9 TH/MM3 0.6 TH/MM3 Monocytes # (Auto) 0.7 TH/MM3 0.5 TH/MM3 Eosinophils # (Auto) 0.0 TH/MM3 0.0 TH/MM3 Basophils # (Auto) 0.1 TH/MM3 0.0 TH/MM3 CBC Comment AUTO DIFF DIFF FINAL Differential Total Cells Counted 100 Neutrophils % (Manual) 79 % Band Neutrophils % 7 % Lymphocytes % 7 % Monocytes % 7 % Neutrophils # (Manual) 11.4 TH/MM3 Differential Comment FINAL DIFF MANUAL Platelet Estimate NORMAL Platelet Morphology Comment NORMAL Red Cell Morphology Comment NORMAL Prothrombin Time 10.0 SEC Prothromb Time International Ratio 1.0 RATIO Activated Partial Thromboplast Time 22.0 SEC Blood Urea Nitrogen 39 MG/DL 26 MG/DL Creatinine 1.15 MG/DL 1.21 MG/DL Random Glucose 85 MG/DL 137 MG/DL Total Protein 6.6 GM/DL Albumin 4.0 GM/DL Calcium Level 8.7 MG/DL 8.3 MG/DL Magnesium Level 2.1 MG/DL Alkaline Phosphatase 78 U/L Aspartate Amino Transf (AST/SGOT) 21 U/L Alanine Aminotransferase (ALT/SGPT) 26 U/L Total Bilirubin 1.3 MG/DL Sodium Level 132 MEQ/L 136 MEQ/L Potassium Level 5.8 MEQ/L 4.1 MEQ/L Chloride Level 101 MEQ/L 104 MEQ/L Carbon Dioxide Level 23.1 MEQ/L 21.6 MEQ/L Anion Gap 8 MEQ/L 10 MEQ/L Estimat Glomerular Filtration Rate 46 ML/MIN 43 ML/MIN Total Creatine Kinase 30 U/L 22 U/L 19 U/L Troponin I LESS THAN 0.02 NG/ML LESS THAN 0.02 NG/ML LESS THAN 0.02 NG/ML B-Type Natriuretic Peptide 143 PG/ML Lipase 211 U/L Test 10/10/17 06:23 10/10/17 20:30 10/11/17 05:00 White Blood Count 9.5 TH/MM3 8.0 TH/MM3 Red Blood Count 3.99 MIL/MM3 3.62 MIL/MM3 Hemoglobin 12.4 GM/DL 11.3 GM/DL Hematocrit 36.4 % 33.5 % Mean Corpuscular Volume 91.3 FL 92.4 FL Mean Corpuscular Hemoglobin 31.0 PG 31.2 PG Mean Corpuscular Hemoglobin Concent 33.9 % 33.8 % Red Cell Distribution Width 14.4 % 14.6 % Platelet Count 124 TH/MM3 108 TH/MM3 Mean Platelet Volume 7.8 FL 7.7 FL Neutrophils (%) (Auto) 80.4 % 77.8 % Lymphocytes (%) (Auto) 9.1 % 11.8 % Monocytes (%) (Auto) 9.8 % 9.8 % Eosinophils (%) (Auto) 0.4 % 0.4 % Basophils (%) (Auto) 0.3 % 0.2 % Neutrophils # (Auto) 7.6 TH/MM3 6.3 TH/MM3 Lymphocytes # (Auto) 0.9 TH/MM3 0.9 TH/MM3 Monocytes # (Auto) 0.9 TH/MM3 0.8 TH/MM3 Eosinophils # (Auto) 0.0 TH/MM3 0.0 TH/MM3 Basophils # (Auto) 0.0 TH/MM3 0.0 TH/MM3 CBC Comment DIFF FINAL DIFF FINAL Differential Comment Blood Urea Nitrogen 29 MG/DL 33 MG/DL Creatinine 1.35 MG/DL 1.25 MG/DL Random Glucose 105 MG/DL 104 MG/DL Calcium Level 8.1 MG/DL 8.1 MG/DL Sodium Level 135 MEQ/L 136 MEQ/L Potassium Level 4.0 MEQ/L 4.2 MEQ/L Chloride Level 102 MEQ/L 104 MEQ/L Carbon Dioxide Level 23.5 MEQ/L 23.7 MEQ/L Anion Gap 10 MEQ/L 8 MEQ/L Estimat Glomerular Filtration Rate 38 ML/MIN 41 ML/MIN Lactic Acid Level 1.4 mmol/L Triglycerides Level 197 MG/DL Cholesterol Level 218 MG/DL LDL Cholesterol 114 MG/DL HDL Cholesterol 65.0 MG/DL Cholesterol/HDL Ratio 3.35 RATIO Urine Color YELLOW Urine Turbidity HAZY Urine pH 5.0 Urine Specific [place] 1.017 Urine Protein NEG mg/dL Urine Glucose (UA) NEG mg/dL Urine Ketones NEG mg/dL Urine Occult Blood NEG Urine Nitrite NEG Urine Bilirubin NEG Urine Urobilinogen LESS THAN 2.0 MG/DL Urine Leukocyte Esterase LARGE Urine RBC 9 /hpf Urine WBC 75 /hpf Urine Squamous Epithelial Cells 1 /hpf Urine Bacteria RARE /hpf Urine Mucus FEW /lpf Microscopic Urinalysis Comment CULTURE INDICATED Phosphorus Level 2.9 MG/DL Magnesium Level 2.0 MG/DL Imaging Last Impressions Myocardial Perfusion Scan Nuc Med 10/10/17 0000 Signed Impressions: Service Date/Time: Tuesday, October 10, 2017 11:20 - CONCLUSION: 1. No evidence of stress-induced ischemia. 2. Intact wall motion with 60%% ejection fraction. RISK CATEGORY: Low (<1%% Annual Mortality Rate) Pola Arriaga MD Chest X-Ray 10/10/17 0000 Signed Impressions: Service Date/Time: Tuesday, October 10, 2017 05:45 - CONCLUSION: No acute disease. Haider Conroy MD Head CT 10/09/17 0000 Signed Impressions: Service Date/Time: Monday, October 09, 2017 20:47 - CONCLUSION: 1. No acute intracranial abnormality. 2. Encephalomalacia of the right temporal lobe. 3. Mild sinus disease. Xavi Figueroa MD Objective Remarks GENERAL: Awake alert oriented talkative and cooperative in no acute distress SKIN: Warm and dry. HEAD: Atraumatic. Normocephalic. EYES: Pupils equal and round. No scleral icterus. No injection or drainage. Extraocular muscles intact ENT: No nasal bleeding or discharge. Mucous membranes pink and moist. Tongue is midline NECK: Trachea midline. No JVD. Supple CARDIOVASCULAR: Regular rate and rhythm. S1 and S2 no S3 or S4 RESPIRATORY: No accessory muscle use. Clear to auscultation. Breath sounds equal bilaterally. GASTROINTESTINAL: Abdomen soft, non-tender, nondistended. Hepatic and splenic margins not palpable. MUSCULOSKELETAL: Extremities without clubbing, cyanosis, or edema. No obvious deformities. NEUROLOGICAL: Awake and alert. No obvious cranial nerve deficits. Motor grossly within normal limits. Five out of 5 muscle strength in the arms and legs. Normal speech. PSYCHIATRIC: Appropriate mood and affect; insight and judgment normal. Procedures NONE Medications and IVs Current Medications Aspirin (Aspirin Chew) 324 mg ONCE ONCE PO Last administered on 10/08/17 14: 47; Start 10/08/17 at 14:45; Stop 10/08/17 at 14:46; Status DC Nitroglycerin (Nitroglycerin 2% Oint) 1 inch ONCE ONCE TOP Last administered on 10/08/17 14:47; Start 10/08/17 at 14:45; Stop 10/08/17 at 14:46; Status DC Sodium Chloride (NS Flush) 2 ml UNSCH PRN IVF FLUSH AFTER USING IV ACCESS Last administered on 10/08/17 14:47; Start 10/08/17 at 14:45; Stop 10/09/17 at 03:18 ; Status DC Sodium Chloride 500 ml @ 500 mls/hr BOLUS ONCE IV Last administered on 16:18; Start 10/08/17 at 16:15; Stop 10/08/17 at 17:14; Status DC Sodium Polystyrene Sulfonate (Kayexalate Liq) 30 gm ONCE ONCE PO Last administered on 10/08/17 17:42; Start 10/08/17 at 16:30; Stop 10/08/17 at 16:31 ; Status DC Sodium Chloride (NS Flush) 2 ml BID IV FLUSH Last administered on 10/11/17 09: 04; Start 10/08/17 at 21:00 Sodium Chloride (NS Flush) 2 ml UNSCH PRN IV FLUSH FLUSH AFTER USING IV ACCESS ; Start 10/08/17 at 17:15 Acetaminophen (Tylenol) 500 mg Q4H PRN PO headache/fever/pain1-2 Last administered on 10/09/17 15:54; Start 10/08/17 at 17:15; Stop 10/10/17 at 05:08 ; Status DC Heparin Sodium (Porcine) (Heparin Inj) 5,000 units Q8H SQ ; Start 10/08/17 at 22 :00; Stop 10/09/17 at 13:57; Status DC Methylprednisolone (Medrol) 4 mg BID PO ; Start 10/08/17 at 21:00; Stop at 21:45; Status DC Metoprolol Succinate (Toprol Xl) 25 mg BID PO Last administered on 10/11/17 09 :03; Start 10/08/17 at 21:00 Temazepam (Restoril) 15 mg HS PO Last administered on 10/10/17 22:05; Start 10/08/17 at 21:00 Morphine Sulfate (Morphine Inj) 2 mg Q3H PRN IV PUSH chest pain/breakthrough pain Last administered on 10/09/17 19:25; Start 10/08/17 at 17:30 Hydralazine HCl (Apresoline Inj) 10 mg ONCE ONCE IV PUSH Last administered on 10/08/17 17:45; Start 10/08/17 at 17:30; Stop 10/08/17 at 17:31; Status DC Clonidine (Catapres) 0.1 mg Q6H PRN PO SBP>160, DBP>100 Last administered on 20:59; Start 10/08/17 at 17:30 Methylprednisolone (Medrol) 4 mg Q12H PO Last administered on 10/11/17 07:01; Start 10/09/17 at 06:00 Cromolyn Sodium (Nasalcrom Erwin Spr) 1 spray Q8HR NASAL ; Start 10/09/17 at 02:30 ; Stop 10/09/17 at 03:13; Status DC Fluticasone Propionate (Flonase Erwin Spr) 1 spray BID NASAL Last administered on 10/10/17 22:04; Start 10/09/17 at 03:15 Nitroglycerin (Nitroglycerin 2% Oint) 1 inch Q6HR TOPICAL Last administered on 10/09/17 12:14; Start 10/09/17 at 12:00; Stop 10/09/17 at 18:46; Status DC Hydralazine HCl (Apresoline) 50 mg Q12HR PO Last administered on 10/11/17 09: 03; Start 10/09/17 at 12:45 Ondansetron HCl (Zofran Inj) 4 mg Q6H PRN IV PUSH nausea/vomiting Last administered on 10/09/17 18:27; Start 10/09/17 at 17:15 Acetaminophen/ Hydrocodone Bitart ([place] 5-325 Mg) 1 tab Q4H PRN PO PAIN SCALE 3 TO 7; Start 10/09/17 at 17:15 Acetaminophen/ Hydrocodone Bitart ([place] 7.5-325 Mg) 1 tab Q4H PRN PO PAIN SCALE 8 TO 10; Start 10/09/17 at 17:15 Guaifenesin/ Dextromethorphan (Robitussin Dm 200-20 Mg/10 ml Liq) 10 ml Q4H PRN PO COUGH; Start 10/09/17 at 17:15 Aspirin (Ecotrin Ec) 81 mg DAILY PO ; Start 10/10/17 at 09:00; Status Future Hold Aspirin (Ecotrin Ec) 81 mg ONCE ONCE PO ; Start 10/09/17 at 17:15; Stop at 19:06; Status DC Promethazine HCl (Phenergan Inj) 25 mg Q6H PRN IM inctratable nausea/vomiting Last administered on 10/09/17 19:29; Start 10/09/17 at 19:00 Sodium Chloride 1,000 ml @ 84 mls/hr [id number] IV Last administered on 19:15; Start 10/09/17 at 19:15; Stop 10/10/17 at 07:09; Status DC Acyclovir Sodium 930 mg/Sodium Chloride 150 ml @ 150 mls/hr Q8H IV Last administered on 10/10/17 00:36; Start 10/09/17 at 21:00; Stop 10/10/17 at 05:26 ; Status DC Acetaminophen (Tylenol) 650 mg Q4H PRN PO headache/fever/pain1-2; Start at 05:15; Stop 10/10/17 at 05:31; Status DC Acyclovir Sodium 930 mg/Sodium Chloride 150 ml @ 150 mls/hr Q8H IV ; Start 10/10/17 at 09:00; Status Cancel Acetaminophen (Tylenol) 650 mg Q4H PRN PO headache/fever/pain1-2 Last administered on 10/10/17 17:09; Start 10/10/17 at 05:45 Acyclovir Sodium 930 mg/Sodium Chloride 150 ml @ 150 mls/hr Q12H IV ; Start at 13:00; Stop 10/10/17 at 14:28; Status DC Regadenoson (Lexiscan Inj) 0.4 mg STK-MED ONCE .ROUTE Last administered on 10/10 11:44; Start 10/10/17 at 11:44; Stop 10/10/17 at 11:45; Status DC Levofloxacin (Levaquin) 750 mg DAILY PO ; Start 10/11/17 at 09:00; Stop at 09:00; Status DC Levofloxacin (Levaquin) 750 mg ONCE ONCE PO ; Start 10/10/17 at 14:15; Stop at 14:16; Status UNV Guaifenesin (Mucinex Er) 600 mg BID PO Last administered on 10/11/17 09:03; Start 10/10/17 at 21:00 Guaifenesin (Mucinex Er) 600 mg ONCE ONCE PO Last administered on 10/10/17 14 :48; Start 10/10/17 at 14:15; Stop 10/10/17 at 14:35; Status DC Levofloxacin (Levaquin) 500 mg ONCE ONCE PO Last administered on 10/10/17 14: 48; Start 10/10/17 at 16:00; Stop 10/10/17 at 16:01; Status DC Levofloxacin (Levaquin) 250 mg Q24H PO ; Start 10/11/17 at 16:00; Stop 10/11/17 at 16:00; Status DC Levofloxacin (Levaquin) 250 mg DAILY PO ; Start 10/11/17 at 09:00; Stop at 09:00; Status DC Levofloxacin (Levaquin) 750 mg DAILY PO ; Start 10/11/17 at 11:30; Stop at 12:04; Status DC Levofloxacin (Levaquin) 250 mg Q24H PO ; Start 10/11/17 at 14:00 A/P Problem List: (1) Chest pain ICD Code: R07.9 - Chest pain, unspecified Status: Acute (2) Hyperkalemia ICD Code: E87.5 - Hyperkalemia Status: Acute Assessment and Plan 77yo female with PMHX of CAD s/p CABG, HTN, CHF, HLD, CKD, hx of colon cancer s/ p resection/colostomy and 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 1. Chest pain Resolved with Nitro patch Patient with significant cardiac history including multiple MIs and CAD status post CABG Pacemaker placed 5 weeks ago for bradycardia Recreation Therapist is Dr. Gonzalez ASA daily Morphine 2mg q3h prn chest pain EKG showed paced rhythm without ST segment elevations or depressions, reviewed by me Troponin negative x 3 Cardiology consulted, appreciate assistance. MPS completed showing no signs of ischemia and EF 60%. 2. Fever, neck pain, headache, N/V Hx of HSV encephalitis 2015 Tmax 102 Lactic acid 1.4 initial BCX negative x 1 day, repeat BCX pending IVF UA ordered/specimen pending Started on IV Acyclovir, continue.--STOPPED BY ID Improving ID consulted, appreciate assistance continue supportive care STARTED ON LEVAQUIN 3. Bronchitis with greenish sputum production CXR showing no acute disease, images personally reviewed Obtain sputum culture Start Levaquin 750mg po daily, Mucinex ER 600mg po BID IS to bedside, encourage use monitor respiratory status, currently satting 95% on RA Continue on Levaquin 10 days 4. Hypertension controlled Continue Hydralazine 50mg po BID Clonidine when necessary Continue home metoprolol 25mg po BID Monitor 5. CKD Creatinine 1.15, baseline 1.22 Avoid nephrotoxic agents Monitor renal function 6. Hyperkalemia Potassium 5.8 without EKG changes resolved 7. Arthritis Patient on methylprednisolone for acute arthritis flare Continue PT/OT 8. Thrombocytopenia mild monitor repeat CBC in am Discussed with patient, sister, nursing staff and Dr. Corona Cleared By infectious disease will discharge to home today Discharge Planning Cleared by infectious disease CARDIAC CLEARED Discharge to home Problem Qualifiers (1) Chest pain: Qualified Codes: R07.9 - Chest pain, unspecified Elijah Corona DO Oct 11, 2017 14:12
[2017-10-11] MEDS ORDERED: HYDR-3800 PO (14:18)
[2017-10-11] MEDS ORDERED: VENTAER INH (14:18)
[2017-10-11] MEDS ORDERED: MEDR4TAB PO (14:18)
[2017-10-11] MEDS ORDERED: LEVA250T14 PO (14:18)
[2017-10-11] MEDS ORDERED: guaiFENesin ER PO (14:18)
[2017-10-11] MEDS ORDERED: ECASA81 PO (14:18)
[2017-10-11] MEDS ORDERED: FLUT50SP NASAL (14:18)
[2017-10-11] MEDS ORDERED: METO1TAB42 PO (14:18)
--- NOTE | 2017-10-11 14:20 | HHI.DS ---
Discharge Summary Admission Date Oct 10, 2017 at 14:47 Discharge Date: Oct 11, 2017 Admitting Diagnosis chest pain, hyperkalemia, acute on chronic kidney disease, HTN (1) Chest pain ICD Code: R07.9 - Chest pain, unspecified Diagnosis: Principal Status: Acute (2) Hyperkalemia ICD Code: E87.5 - Hyperkalemia Diagnosis: Secondary Status: Acute (3) Hypertension ICD Code: I10 - Essential (primary) hypertension Diagnosis: Principal Status: Chronic (4) URI (upper respiratory infection) ICD Code: J06.9 - Acute upper respiratory infection, unspecified Diagnosis: Principal Status: Acute (5) High blood pressure ICD Code: I10 - Essential (primary) hypertension Diagnosis: Principal Status: Chronic Procedures NONE Brief History - From Admission 77-year-old female with a past medical history significant for CAD status post CABG, hypertension, CHF (EF of 50-55% in 2016), hyperlipidemia, chronic kidney disease, history of colon cancer status post resection/colostomy and 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 The patient reports that the pain started in her neck and radiated to the epigastric area at which time she experienced nausea. She states the pain then progressed to the left anterior chest wall and radiated down the left arm. She reports being diaphoretic and lightheaded during this time. She denies any shortness of breath. Nitroglycerin patch placed in the emergency department which alleviated the chest pain. Initial troponin less than 0.02. EKG shows a paced rhythm without any ST segment elevations or depressions. Other lab values significant for leukocytosis of 13.2, hyperkalemia with a potassium of 5.8 and a creatinine of 1.15 (baseline approximately 1.2) CBC/BMP: 10/11/17 0500 10/11/17 0500 Significant Findings Laboratory Tests Test 10/08/17 14:43 10/08/17 21:26 10/09/17 02:57 10/09/17 13:30 White Blood Count 13.2 TH/MM3 (4.0-11.0) Neutrophils (%) (Auto) 87.4 % (16.0-70.0) 85.3 % (16.0-70.0) Lymphocytes (%) (Auto) 6.7 % (9.0-44.0) 8.0 % (9.0-44.0) Neutrophils # (Auto) 11.6 TH/MM3 (1.8-7.7) Lymphocytes # (Auto) 0.9 TH/MM3 (1.0-4.8) 0.6 TH/MM3 (1.0-4.8) Neutrophils % (Manual) 79 % (16-70) Band Neutrophils % 7 % (0-6) Lymphocytes % 7 % (9-44) Neutrophils # (Manual) 11.4 TH/MM3 (1.8-7.7) Activated Partial Thromboplast Time 22.0 SEC (24.3-30.1) Blood Urea Nitrogen 39 MG/DL (7-18) 26 MG/DL (7-18) Creatinine 1.15 MG/DL (0.50-1.00) 1.21 MG/DL (0.50-1.00) Total Bilirubin 1.3 MG/DL (0.2-1.0) Sodium Level 132 MEQ/L (136-145) Potassium Level 5.8 MEQ/L (3.5-5.1) Estimat Glomerular Filtration Rate 46 ML/MIN (>89) 43 ML/MIN (>89) Troponin I LESS THAN 0.02 NG/ML LESS THAN 0.02 NG/ML LESS THAN 0.02 NG/ML B-Type Natriuretic Peptide 143 PG/ML (0-100) Total Creatine Kinase 22 U/L (26-192) 19 U/L (26-192) Red Blood Count 3.89 MIL/MM3 (4.00-5.30) Platelet Count 121 TH/MM3 (150-450) Random Glucose 137 MG/DL (74-106) Calcium Level 8.3 MG/DL (8.5-10.1) Test 10/10/17 06:23 10/10/17 20:30 10/11/17 05:00 Red Blood Count 3.99 MIL/MM3 (4.00-5.30) 3.62 MIL/MM3 (4.00-5.30) Platelet Count 124 TH/MM3 (150-450) 108 TH/MM3 (150-450) Neutrophils (%) (Auto) 80.4 % (16.0-70.0) 77.8 % (16.0-70.0) Monocytes (%) (Auto) 9.8 % (0.0-8.0) 9.8 % (0.0-8.0) Lymphocytes # (Auto) 0.9 TH/MM3 (1.0-4.8) 0.9 TH/MM3 (1.0-4.8) Blood Urea Nitrogen 29 MG/DL (7-18) 33 MG/DL (7-18) Creatinine 1.35 MG/DL (0.50-1.00) 1.25 MG/DL (0.50-1.00) Calcium Level 8.1 MG/DL (8.5-10.1) 8.1 MG/DL (8.5-10.1) Sodium Level 135 MEQ/L (136-145) Estimat Glomerular Filtration Rate 38 ML/MIN (>89) 41 ML/MIN (>89) Triglycerides Level 197 MG/DL (42-150) Cholesterol Level 218 MG/DL (120-200) LDL Cholesterol 114 MG/DL (0-99) HDL Cholesterol 65.0 MG/DL (40.0-60.0) Urine Turbidity HAZY (CLEAR) Urine Leukocyte Esterase LARGE (NEG) Urine RBC 9 /hpf (0-3) Urine WBC 75 /hpf (0-5) Urine Bacteria RARE /hpf (NONE) Urine Mucus FEW /lpf (OCC) Hemoglobin 11.3 GM/DL (11.6-15.3) Hematocrit 33.5 % (35.0-46.0) Imaging Last Impressions Myocardial Perfusion Scan Nuc Med 10/10/17 0000 Signed Impressions: Service Date/Time: Tuesday, October 10, 2017 11:20 - CONCLUSION: 1. No evidence of stress-induced ischemia. 2. Intact wall motion with 60%% ejection fraction. RISK CATEGORY: Low (<1%% Annual Mortality Rate) Pola Arriaga MD Chest X-Ray 10/10/17 0000 Signed Impressions: Service Date/Time: Tuesday, October 10, 2017 05:45 - CONCLUSION: No acute disease. Haider Conroy MD Head CT 10/09/17 0000 Signed Impressions: Service Date/Time: Monday, October 09, 2017 20:47 - CONCLUSION: 1. No acute intracranial abnormality. 2. Encephalomalacia of the right temporal lobe. 3. Mild sinus disease. Xavi Figueroa MD PE at Discharge GENERAL: Awake alert oriented talkative and cooperative in no acute distress SKIN: Warm and dry. HEAD: Atraumatic. Normocephalic. EYES: Pupils equal and round. No scleral icterus. No injection or drainage. Extraocular muscles intact ENT: No nasal bleeding or discharge. Mucous membranes pink and moist. Tongue is midline NECK: Trachea midline. No JVD. Supple CARDIOVASCULAR: Regular rate and rhythm. S1 and S2 no S3 or S4 RESPIRATORY: No accessory muscle use. Clear to auscultation. Breath sounds equal bilaterally. GASTROINTESTINAL: Abdomen soft, non-tender, nondistended. Hepatic and splenic margins not palpable. MUSCULOSKELETAL: Extremities without clubbing, cyanosis, or edema. No obvious deformities. NEUROLOGICAL: Awake and alert. No obvious cranial nerve deficits. Motor grossly within normal limits. Five out of 5 muscle strength in the arms and legs. Normal speech. PSYCHIATRIC: Appropriate mood and affect; insight and judgment normal. 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 The patient reports that the pain started in her neck and radiated to the epigastric area at which time she experienced nausea. She states the pain then progressed to the left anterior chest wall and radiated down the left arm. She reports being diaphoretic and lightheaded during this time. She denies any shortness of breath. Nitroglycerin patch placed in the emergency department which alleviated the chest pain. Initial troponin less than 0.02. EKG shows a paced rhythm without any ST segment elevations or depressions. Other lab values significant for leukocytosis of 13.2, hyperkalemia with a potassium of 5.8 and a creatinine of 1.15 (baseline approximately 1.2) 12-4 Follow up on patient with chest pain. Patient seen and examined. Had a stiff neck and headache yesterday, better today. Initial BCX negative, repeat BCX pending. Reports coughing up greenish sputum today. (+)fever 102 early this am. Denies any chest pain today. No dyspnea. Denies any nausea, vomiting or abdominal pain. MEDICATIONS ADJUSTED BY ID TO JUST LEVAQUIN STRESS TEST IS NEGATIVE 12-5 patient is feeling better. Wants to go home. Still having some cough and congestion. Is tolerating the Levaquin. Has been cleared by infectious disease. We'll continue on Levaquin for 10 more days. Pt Condition on Discharge: Good Discharge Disposition: Discharge Home Discharge Time: <= 30 minutes Discharge Instructions DIET: Follow Instructions for: Heart Healthy Diet Speech Therapy-Diet Recommends: Regular Activities you can perform: Regular-No Restrictions Follow up Referrals: Cardiology - 1 Week with Al Gonzalez MD PCP Follow-up - 1 Week with Roly Shultz DO New Medications: Albuterol 18 GM Inh (Ventolin Hfa 18 GM Inh) 90 Mcg/Act Aer 2 PUFF INH Q4-6H PRN for SHORTNESS OF BREATH, #1 INHALER [address] (Aspirin DR) 81 Mg Tabdr 81 MG PO DAILY for Blood Clot Prevention, #30 TAB Fluticasone Nasal [place] (Fluticasone Nasal [place]) 50 Mcg/Act Naspr 1 SPRAY NASAL BID for Allergies, #1 BOTTLE 50 mcg/spray Hydralazine HCl (Hydralazine HCl) 50 Mg Tablet 50 MG PO Q12HR for Blood Pressure Management, #60 TAB Levofloxacin (Levaquin) 250 Mg Tablet 250 MG PO Q24H for Infection, #10 TAB Methylprednisolone (Medrol) 4 Mg Tab 4 MG PO Q12H for Inflammation, #20 TAB TAKE WITH FOOD [guaiFENesin ER] () 600 MG TABCR 600 MG PO BID for Cough, #60 TAB Continued Medications: Methylprednisolone (Methylprednisolone) 8 Mg Tab 4 MG PO BID, TAB 0 Refills Metoprolol Succinate ER 24 HR (Metoprolol Succinate ER 24 HR) 25 Mg Tab 25 MG PO BID for Blood Pressure Management, #30 TAB 0 Refills (This prescription has been renewed) Temazepam (Temazepam) 15 Mg Cap 15 MG PO DAILY for INSOMNIA, #30 CAP 0 Refills Elijah Corona DO Oct 11, 2017 14:20
== END 2017-10-11 15:56 | disposition home or self-care (01) | DRG 313 ==
LOC: NEPE 14:03 → NEDA 16:44 → NEPHCDU 19:33 → OBSVTOIN 10-10 14:47 → NEPFCDU 10-10 16:22
PROVIDERS: ADMIT Hospitalist; ATTEND Hospitalist
DX: R07.9 Chest pain, unspecified (principal); I25.2 Old myocardial infarction; I13.0 Hypertensive heart and chronic kidney disease with heart failure and stage 1 through stage 4 chronic kidney disease, or unspecified chronic kidney disease; I50.9 Heart failure, unspecified; E87.5 Hyperkalemia; N18.3 Chronic kidney disease, stage 3 (moderate); D69.6 Thrombocytopenia, unspecified; J06.9 Acute upper respiratory infection, unspecified; I25.119 Atherosclerotic heart disease of native coronary artery with unspecified angina pectoris; Z95.0 Presence of cardiac pacemaker; Z95.1 Presence of aortocoronary bypass graft; T46.3X5A Adverse effect of coronary vasodilators, initial encounter; G44.41 Drug-induced headache, not elsewhere classified, intractable; Y92.230 Patient room in hospital as the place of occurrence of the external cause; Z93.3 Colostomy status; Z85.038 Personal history of other malignant neoplasm of large intestine; E78.5 Hyperlipidemia, unspecified; M19.90 Unspecified osteoarthritis, unspecified site; Z79.52 Long term (current) use of systemic steroids; Z87.891 Personal history of nicotine dependence
CPT/HCPCS: 70450; 71010; 76937; 78452; 80048; 80053; 80061; 81001; 82550; 83605; 83690; 83735; 83880; 84100; 84484; 85007; 85025; 85027; 85610; 85730; 87040; 87070; 87086; 87205; 93005; 93017; 94150; 96361; 96374; 96375; A9502; G0378; G8987-GO; G8988-GO; G8989-GO; J0133; J0360; J2270; J2405; J2550; J2785; J7030; J7040; J7509

== ENCOUNTER 2017-10-31 15:03 | Emergency (ER) | payer MEDICARE ==
[~2017-10-31] VITALS: Ht 172.7 cm; Wt 70.0 kg
[~2017-10-31 15:03] MED LIST changes: -BACT800T5 PO; +ECASA81 PO; +FLUT50SP NASAL; +HYDR-3800 PO; +LEVA250T14 PO; +MEDR4TAB PO; +METH8TAB3 PO; +VENTAER INH; +guaiFENesin ER PO
[2017-10-31 15:14] VITALS: BP 194/79; PULSE 82; RESP 18; TEMP 101; O2SAT 97
[2017-10-31] MEDS ORDERED: SODIUM CHLOR 0.9% 1000 ML INJ 1,000 ML IV ONE (15:23)
[2017-10-31] MEDS ORDERED: ACETAMINOPHEN 325 MG TAB PO ONE (15:30)
[2017-10-31 15:58] LABS: AUTOMATED NEUTROPHIL # 6.9 TH/MM3 (1.8-7.7); BASOPHIL % 0.6 % (0.0-2.0); EOSINOPHIL # 0.1 TH/MM3 (0-0.4); HEMATOCRIT 34.1 % (35.0-46.0); HEMOGLOBIN 11.6 GM/DL (11.6-15.3); LYMPH % 4.8 % (9.0-44.0); LYMPHOCYTE # 0.4 TH/MM3 (1.0-4.8); MEAN CELL VOLUME 92.4 FL (80.0-100.0); MEAN CORPUSCULAR HEMOGLOBIN 31.6 PG (27.0-34.0); MEAN CORPUSCULAR HGB CONC 34.2 % (32.0-36.0); MEAN PLATELET VOLUME 7.5 FL (7.0-11.0); MONOCYTE # 0.3 TH/MM3 (0-0.9); NEUT % 89.6 % (16.0-70.0); PLATELET COUNT 136 TH/MM3 (150-450); RED BLOOD COUNT 3.69 MIL/MM3 (4.00-5.30); RED CELL DISTRIBUTION WIDTH 14.8 % (11.6-17.2); WHITE BLOOD COUNT 7.7 TH/MM3 (4.0-11.0)
[2017-10-31 16:01] VITALS: O2SAT 96
--- NOTE | 2017-10-31 16:06 | RADRPT ---
EXAM DATE/TIME: 10/31/2017 15:45 [facility] COMPARISON: CHEST SINGLE AP, October 10, 2017, 5:45. INDICATIONS : Cough. MEDICAL HISTORY : Myocardial infarction. Stroke. Cardiovascular disease. Cerebrovascular disease. Congestive heart fail ure. SURGICAL HISTORY : CABG. Pacemaker. Cardiac stent. ENCOUNTER: Initial ACUITY: 1 day PAIN SCORE: 0/10 LOCATION: Bilateral chest FINDINGS: Single AP view of the chest. Median sternotomy wires. Dual-lead cardiac pacemaker. The lungs are lala r. Cardiomediastinal silhouette within normal limits. No evidence of pleural effusion or pneumothorax . CONCLUSION: No acute cardiopulmonary disease identified. Joel Rogers MD on October 31, 2017 at 16:04 Board Certified Radiologist. This report was verified electronically.
[2017-10-31 16:12] LABS: ALBUMIN 3.4 GM/DL (3.4-5.0); ALT (GPT) 30 U/L (10-53); AST (GOT) 29 U/L (15-37); BICARBONATE 22.6 MEQ/L (21.0-32.0); BLOOD UREA NITROGEN 31 MG/DL (7-18); CALCIUM 8.4 MG/DL (8.5-10.1); CHLORIDE 104 MEQ/L (98-107); GLOMERULAR FILTRATION RATE 40 ML/MIN (>89); GLUCOSE,RANDOM 110 MG/DL (74-106); SODIUM (NA) 134 MEQ/L (136-145)
[2017-10-31 16:14] LABS: ALKALINE PHOSPHATASE 66 U/L (45-117); PROTHROMBIN TIME - PATIENT 10.5 SEC (9.8-11.6); TOTAL BILIRUBIN ADULT 1.2 MG/DL (0.2-1.0); TOTAL PROTEIN 5.9 GM/DL (6.4-8.2)
[2017-10-31 16:22] LABS: BANDS 9 % (0-6); LYMPHOCYTES 5 % (9-44); MONOCYTES 4 % (0-8); POLYS (SEG NEUTROPHILS) 82 % (16-70)
[2017-10-31 16:29] LABS: BILIRUBIN, URINE NEG (NEG); BLOOD, URINE NEG (NEG); GLUCOSE,URINE NEG (NEG); KETONE, URINE NEG (NEG); NITRITE,URINE NEG (NEG); SQUAMOUS EPITHELIAL CELL URINE <1 /hpf (0-5); URINE COLOR YELLOW (YELLW/STRAW); URINE LEUKOCYTE ESTERASE SMALL (NEG)
[2017-10-31 16:38] VITALS: BP 114/51; PULSE 75; RESP 18; O2SAT 96
--- NOTE | 2017-10-31 16:47 | RADRPT ---
EXAM DATE/TIME: 10/31/2017 16:31 [facility] COMPARISON: CT BRAIN W/O CONTRAST, October 09, 2017, 20:47. INDICATIONS : Headaches for one day. RADIATION DOSE: 34.60 CTDIvol (mGy) MEDICAL HISTORY : Hypertension. Cerebrovascular disease. Cardiovascular diseaseTIA x4, Renal failure/disease, colon ca ncer. SURGICAL HISTORY : Pacemaker. Hysterectomy. ENCOUNTER: Initial ACUITY: 1 day PAIN SCALE: 8/10 LOCATION: Bilateral cranial TECHNIQUE: Multiple contiguous axial images were obtained of the head. Using automated exposure control and adj ustment of the mA and/or kV according to patient size, radiation dose was kept as low as reasonably a chievable to obtain optimal diagnostic quality images. DICOM format image data is available electro nically for review and comparison. FINDINGS: CEREBRUM: Hypodensity is in the right frontal lobe unchanged indicating chronic ischemic change. Encephalomalac ia of the right temporal lobe unchanged. No evidence of acute intracranial hemorrhage, mass lesion, o r acute infarction. Ventricles within normal limits. POSTERIOR FOSSA: The cerebellum and brainstem are intact. The 4th ventricle is midline. The cerebellopontine angle i s unremarkable. EXTRACRANIAL: Mild partial opacification of the ethmoid sinuses. SKULL: The calvaria is intact. No evidence of skull fracture. CONCLUSION: No acute intracranial findings. Chronic ischemic findings. Mild ethmoid sinus disease. Joel Rogers MD on October 31, 2017 at 16:44 Board Certified Radiologist. This report was verified electronically.
[2017-10-31 17:36] VITALS: RESP 18
--- NOTE | 2017-10-31 19:01 | PD ---
HPI Chief Complaint: Fever Time Seen by Provider: 15:20 Travel History International Travel<30 days: No Contact w/Intl Traveler<30days: No Traveled to known affect area: No History of Present Illness HPI Patient is a 77-year-old female who comes in complaining of fever. She says she started feeling poorly last night, with headaches, neck pains, body aches. She is concerned because she had meningitis in the past. She denies nausea or vomiting. She says her headache was worse earlier in the day, but actually is better now. She's had some cough, she denies shortness of breath. She denies chest pain. She says she does feel like she has a urinary tract infection. She denies abdominal pain. She says she was going to take Tylenol at home, but never did. Nothing makes her symptoms better or worse. PFSH Past Medical History Arthritis: Yes Asthma: No Blood Disorders: No Anxiety: Yes Depression: No Heart Rhythm Problems: Yes (A-FIB) Cancer: Yes (COLON CANCER HX) Cardiac Catheterization: Yes (x2) Cardiovascular Problems: Yes (CABG, DOUBLE BYPASS, ATRIAL PACER PLACED 5 WEEKS AGO) High Cholesterol: Yes Chemotherapy: Yes Chest Pain: Yes Congestive Heart Failure: Yes COPD: No Cerebrovascular Accident: Yes Coronary Artery Disease: Yes Diabetes: No Diminished Hearing: No Endocrine: No Gastrointestinal Disorders: Yes (irritable bowel disease) GERD: Yes Genitourinary: Yes (STAGE 3 KIDNEY FAILURE, BLADDER INFECTION, LEFT KIDNEY ATROPHY) Headaches: No Hepatitis: No Hiatal Hernia: No Hypertension: Yes 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 ) Implanted Vascular Access Dvce: Yes Kidney Stones: No Musculoskeletal: Yes (ARTHRITIS IN FINGERS) Neurologic: Yes (TIA X4, CVA 2010) Psychiatric: No Reproductive: No (TOTAL HYSTERECTOMY) Respiratory: Yes Migraines: No Myocardial Infarction: Yes Radiation Therapy: No Renal Failure: Yes (chronic kidney disease stage III) Seizures: No Sleep Apnea: Yes Thyroid Disease: No Ulcer: No ?: Not Past Surgical History Abdominal Surgery: Yes (colostomy 2002) AICD: No Arteriovenous Shunt: No Body Medical Devices: PACEMAKER Cardiac Surgery: Yes (stent 5 yrs ago, DOUBLE BYPASS CABG 11/03/13) Cholecystectomy: Yes Coronary Artery Bypass Graft: Yes Coronary Stent: Yes Ear Surgery: Yes (preauricular sinus sx right ear) Endocrine Surgery: No Eye Surgery: Yes (cataract, bilateral vitrectomy) Genitourinary Surgery: No Gynecologic Surgery: Yes (hysterectomy) Hysterectomy: Yes Insulin Pump: No Joint Replacement: No Neurologic Surgery: No Oral Surgery: No Pacemaker: Yes Thoracic Surgery: Yes Tonsillectomy: Yes Other Surgery: Yes (tonsils, cataract bilaterally, gallbladder, hysterectomy, colostomy ) Social History Alcohol Use: Yes (OCASSIONALLY) Tobacco Use: No (QUIT 30 YEARS AGO) Substance Use: No Allergies-Medications (Allergen,Severity, Reaction): Coded Allergies: erythromycin base (Verified Allergy, Severe, RASH, 10/31/17) ibuprofen (Verified Allergy, Severe, RASH, 10/31/17) amiodarone (Unverified Adverse Reaction, Severe, tremors off balance vomiting, 10/31/17) Reported Meds & Prescriptions Reported Meds & Active Scripts Active Ventolin Hfa 18 GM Inh (Albuterol Sulfate) 90 Mcg/Act Aer 2 Puff INH Q4-6H PRN Medrol (Methylprednisolone) 4 Mg Tab 4 Mg PO Q12H TAKE WITH FOOD Fluticasone Nasal [place] 50 Mcg/Act Naspr 1 [place] NASAL BID 50 mcg/spray [guaiFENesin ER] 600 MG Tabcr 600 Mg PO BID Aspirin DR (Aspirin) 81 Mg Tabdr 81 Mg PO DAILY Hydralazine HCl 50 Mg Tablet 50 Mg PO Q12HR Levaquin (Levofloxacin) 250 Mg Tablet 250 Mg PO Q24H Metoprolol Succinate ER 24 HR (Metoprolol Succinate) 25 Mg Tab 25 Mg PO BID Reported Methylprednisolone 8 Mg Tab 4 Mg PO BID Temazepam 15 Mg Cap 15 Mg PO DAILY Review of Systems Except as stated in HPI: all other systems reviewed are Neg General / Constitutional: Positive: Fever Eyes: No: Blurred Vision HENT: Positive: Headaches, Congestion Cardiovascular: No: Chest Pain or Discomfort Respiratory: Positive: Cough, No: Shortness of Breath Gastrointestinal: No: Nausea, Vomiting Genitourinary: Positive: Dysuria Skin: No Rash, No Change in Pigmentation Neurologic: No: Weakness, Dizziness Physical Exam Narrative GENERAL: Awake and alert, in no acute distress. SKIN: Focused skin assessment warm/dry. No wounds. HEAD: Atraumatic. Normocephalic. EYES: Pupils equal and round. No scleral icterus. EOMI. ENT: Mucous membranes pink and moist. NECK: Trachea midline. No JVD. No meningeal signs. CARDIOVASCULAR: Regular rate and rhythm. No murmur appreciated. RESPIRATORY: No accessory muscle use. Clear to auscultation. Breath sounds equal bilaterally. GASTROINTESTINAL: Abdomen soft, non-tender, nondistended. MUSCULOSKELETAL: No obvious deformities. No clubbing. No cyanosis. No edema. NEUROLOGICAL: Awake and alert. No obvious cranial nerve deficits. Motor grossly within normal limits. Normal speech. PSYCHIATRIC: Appropriate mood and affect; insight and judgment normal. Data Data Last Documented VS Vital Signs Date Time Temp Pulse Resp B/P (MAP) Pulse Ox O2 Delivery O2 Flow Rate FiO2 10/31/17 17:36 18 10/31/17 16:38 75 114/51 (72) 96 Room Air 10/31/17 15:14 101.0 Orders Orders Complete Blood Count With Diff (10/31/17 15:23) Comprehensive Metabolic Panel (10/31/17 15:23) Prothrombin Time / Inr (Pt) (10/31/17 15:23) Act Partial Throm Time (Ptt) (10/31/17 15:23) Lactic Acid Sepsis Protocol (10/31/17 15:23) Urinalysis - C+S If Indicated (10/31/17 15:23) Influenzae A/B Antigen (10/31/17 15:23) Blood Culture (10/31/17 15:23) Chest, Single Ap (10/31/17 15:23) Blood Glucose (10/31/17 15:23) Ecg Monitoring (10/31/17 15:23) Iv Access Insert/Monitor (10/31/17 15:23) Oximetry (10/31/17 15:23) Oxygen Administration (10/31/17 15:23) Acetaminophen (Tylenol) (10/31/17 15:30) Ct Brain W/O Iv Contrast(Rout) (10/31/17 15:23) Sodium Chlor 0.9% 1000 Ml Inj (Ns 1000 M (10/31/17 15:23) Urine Culture (10/31/17 15:50) Labs Laboratory Tests Test 10/31/17 15:30 10/31/17 15:50 White Blood Count 7.7 TH/MM3 Red Blood Count 3.69 MIL/MM3 Hemoglobin 11.6 GM/DL Hematocrit 34.1 % Mean Corpuscular Volume 92.4 FL Mean Corpuscular Hemoglobin 31.6 PG Mean Corpuscular Hemoglobin Concent 34.2 % Red Cell Distribution Width 14.8 % Platelet Count 136 TH/MM3 Mean Platelet Volume 7.5 FL Neutrophils (%) (Auto) 89.6 % Lymphocytes (%) (Auto) 4.8 % Monocytes (%) (Auto) 4.0 % Eosinophils (%) (Auto) 1.0 % Basophils (%) (Auto) 0.6 % Neutrophils # (Auto) 6.9 TH/MM3 Lymphocytes # (Auto) 0.4 TH/MM3 Monocytes # (Auto) 0.3 TH/MM3 Eosinophils # (Auto) 0.1 TH/MM3 Basophils # (Auto) 0.0 TH/MM3 CBC Comment AUTO DIFF Differential Total Cells Counted 100 Neutrophils % (Manual) 82 % Band Neutrophils % 9 % Lymphocytes % 5 % Monocytes % 4 % Neutrophils # (Manual) 7.0 TH/MM3 Differential Comment FINAL DIFF MANUAL Platelet Estimate LOW Platelet Morphology Comment NORMAL Red Cell Morphology Comment NORMAL Prothrombin Time 10.5 SEC Prothromb Time International Ratio 1.0 RATIO Activated Partial Thromboplast Time 18.9 SEC Blood Urea Nitrogen 31 MG/DL Creatinine 1.30 MG/DL Random Glucose 110 MG/DL Total Protein 5.9 GM/DL Albumin 3.4 GM/DL Calcium Level 8.4 MG/DL Alkaline Phosphatase 66 U/L Aspartate Amino Transf (AST/SGOT) 29 U/L Alanine Aminotransferase (ALT/SGPT) 30 U/L Total Bilirubin 1.2 MG/DL Sodium Level 134 MEQ/L Potassium Level 4.8 MEQ/L Chloride Level 104 MEQ/L Carbon Dioxide Level 22.6 MEQ/L Anion Gap 7 MEQ/L Estimat Glomerular Filtration Rate 40 ML/MIN Lactic Acid Level 0.7 mmol/L Urine Color YELLOW Urine Turbidity CLEAR Urine pH 7.0 Urine Specific [place] 1.009 Urine Protein NEG mg/dL Urine Glucose (UA) NEG mg/dL Urine Ketones NEG mg/dL Urine Occult Blood NEG Urine Nitrite NEG Urine Bilirubin NEG Urine Urobilinogen LESS THAN 2.0 MG/DL Urine Leukocyte Esterase SMALL Urine RBC 1 /hpf Urine WBC 7 /hpf Urine Squamous Epithelial Cells <1 /hpf Microscopic Urinalysis Comment CATH-CULTURE IND MDM Medical Decision Making Medical Screen Exam Complete: Yes Emergency Medical Condition: Yes Medical Record Reviewed: Yes Differential Diagnosis influenza vs pneumonia vs uti Narrative Course Patient is a 77 year old female who comes in complaining of fever and bodyaches. Exam shows no acute abnormalities. IV established, labs sent. Labs show no acute abnormalities. Urine is positive for bacteria. Flu swab is positive. Given IVF, toradol. Patient reports feeling better. She will be discharged with prescriptions for Keflex for her UTI and Tamiflu. Advised to follow up with her doctor. Advised to return to the ED as needed for any worsening symptoms. Diagnosis Primary Impression: Influenza Additional Impression: UTI (urinary tract infection) Qualified Codes: N30.00 - Acute cystitis without hematuria Patient Instructions: General Instructions, Influenza (ED), Urinary Tract Infection in Women (ED) Additional Instructions: Take all of your antibiotics. Take the Tamiflu. Drink clear fluids. Get plenty of rest and follow-up with her doctor. Return to the ED as needed for any worsening symptoms. Scripts Oseltamivir (Tamiflu) 75 Mg Cap 75 MG PO BID for Mgmt Viral Infection for 5 Days, #10 CAP 0 Refills Prov: Lacie Ragsdale MD 10/31/17 Cephalexin (Keflex) 500 Mg Capsule 500 MG PO Q8H for Infection for 5 Days, #15 CAP 0 Refills Prov: Lacie Ragsdale MD 10/31/17 Disposition: 01 DISCHARGE HOME Condition: Stable Lacie Ragsdale MD Oct 31, 2017 19:01
[2017-10-31] MEDS ORDERED: OSEL75 PO (19:05)
[2017-10-31] MEDS ORDERED: CEPH-460 PO (19:05)
[2017-10-31 19:10] VITALS: BP 126/68; TEMP 99
== END 2017-10-31 19:34 | disposition home or self-care (01) ==
LOC: NEPE 15:03
DX: J11.1 Influenza due to unidentified influenza virus with other respiratory manifestations (principal); N30.00 Acute cystitis without hematuria; I48.91 Unspecified atrial fibrillation; E78.00 Pure hypercholesterolemia, unspecified; I13.0 Hypertensive heart and chronic kidney disease with heart failure and stage 1 through stage 4 chronic kidney disease, or unspecified chronic kidney disease; I50.9 Heart failure, unspecified; N18.3 Chronic kidney disease, stage 3 (moderate); I25.2 Old myocardial infarction; I25.10 Atherosclerotic heart disease of native coronary artery without angina pectoris
CPT/HCPCS: 70450; 71010; 80053; 81001; 83605; 85007; 85027; 85610; 85730; 87040; 87086; 87804; 96360; 99285; J7030

== ENCOUNTER 2018-10-26 08:19 | Observation (INO) ==
--- NOTE | 2018-10-26 08:44 | ED ---
HPI General Chief complaint: Nausea/Vomiting/Diarrhea Stated complaint: Poss sepsis Time Seen by Provider: 10/26/18 08:23 Source: patient Mode of arrival: EMS Limitations: no limitations History of Present Illness HPI Narrative: 78-year-old female states that she has had nonbloody emesis since she was discharged yesterday. She states her epigastric abdominal pain has resolved. She states she now has generalized weakness. In route with ambulance team her temperature was 93 axillary. She denies any other new complaints since she was here yesterday. She states she is still waiting on the lumbar puncture results given her history of encephalitis. complaint: Reports nausea and vomiting Onset (ago): day(s) Description of Diarrhea: none Associated Abdominal Pain: No Relieving factors: none Exacerbating factors: none Associated symptoms: Reports other (Generalized weakness) Related Data Home Medications Medication Instructions Recorded Confirmed methylprednisolone 4 mg PO DAILY 10/20/18 10/26/18 metoprolol tartrate 25 mg PO BID 10/20/18 10/26/18 temazepam 15 mg PO HS 10/20/18 10/26/18 clonidine HCl 0.1 mg PO PRN 10/25/18 10/26/18 lisinopril 5 mg PO DAILY 10/25/18 10/26/18 Allergies Allergy/AdvReac Type Severity Reaction Status Date / Time erythromycin base Allergy Severe RASH Verified 10/20/18 06:56 ibuprofen Allergy Severe RASH Verified 10/20/18 06:56 amiodarone AdvReac Severe tremors Verified 10/20/18 06:56 off balance vomiting codeine AdvReac Severe Itching Verified 10/20/18 07:00 Review of Systems ROS: all other systems reviewed are negative [facility] Medical History Medical History Cancer (Acute) Encephalitis (Acute) Herpes (Acute) Lumbar puncture less than one week ago (Acute) Meningitis (Acute) Pacemaker (Acute) Rheumatoid arteritis (Acute) Surgical History Surgical History Hx of CABG (Acute) Social History Social History Substance History: No History of Abuse Second Hand Smoke Exposure: No Smoking Status: Former smoker Tobacco Type: Cigarettes How Often Do You Have a Drink Containing Alcohol: 2 to 3 times a week Recent Travel in [facility] within the Last 8 Weeks: No Recent Out of Country Travel within the Last 8 Weeks: No Immunization History Tetanus Immunization: <5 Years Exam Narrative Exam Narrative: GENERAL: 78-year-old female in no apparent distress SKIN: Focused skin assessment warm/dry. HEAD: Atraumatic. Normocephalic. EYES: Pupils equal and round. No scleral icterus. No injection or drainage. ENT: No nasal bleeding or discharge. Mucous membranes pink and moist. NECK: Trachea midline. No JVD. CARDIOVASCULAR: Regular rate and rhythm. RESPIRATORY: No accessory muscle use. Clear to auscultation. Breath sounds equal bilaterally. GASTROINTESTINAL: Abdomen soft, non-tender, nondistended. MUSCULOSKELETAL: No obvious deformities. No clubbing. No cyanosis. NEUROLOGICAL: Awake and alert. Motor grossly within normal limits. Normal speech. PSYCHIATRIC: Appropriate mood and affect; insight and judgment normal. Course Reevaluation(s) Reevaluation #1: Patient has mild elevation of lipase, her urine shows possible signs of infection and so given symptoms we will treat and add on urine culture. Patient will be given Rocephin for this. CT abdomen shows extrahepatic biliary duct dilatation and this will also need to be monitored. She agrees to observation overnight for further testing Consultations Consultation #1: dr baugh agrees to admit Initial Documented Vital Signs Temperature 96.4 F L 10/26/18 08:30 Pulse Rate 60 10/26/18 08:30 Respiratory Rate 18 10/26/18 08:30 Blood Pressure 235/100 H 10/26/18 08:30 Pulse Oximetry 100 10/26/18 08:30 Last Documented Vital Signs Temperature 97.6 F 10/26/18 10:01 Pulse Rate 60 10/26/18 10:01 Respiratory Rate 18 10/26/18 08:30 Blood Pressure 179/76 H 10/26/18 10:01 Pulse Oximetry 99 10/26/18 10:01 Medical Decision Making [facility] Narrative Medical decision making narrative: We will check blood work, imaging and reevaluate Medical Screen Exam Complete: Yes Emergency Medical Condition: Yes Differential Diagnosis Differential Diagnosis: UTI, renal failure, anemia, pneumonia, intra-abdominal infection Lab Data Lab results reviewed: Yes I reviewed the patient's lab results. Result diagrams: 10/26/18 08:44 10/26/18 08:44 Lab Results 10/26/18 10/26/18 10/26/18 Range/Units 08:44 08:44 08:44 WBC 6.9 (4.0-11.0) th/mm3 RBC 3.64 L (4.00-5.30) mil/mm3 Hgb 11.7 (11.6-15.3) gm/dL Hct 34.2 L (35.0-46.0) % MCV 93.9 (80.0-100.0) fL MCH 32.2 (27.0-34.0) pg MCHC 34.3 (32.0-36.0) % RDW 14.4 (11.6-17.2) % Plt Count 142 L (150-450) th/mm3 MPV 7.6 (7.0-11.0) fL Neut % (Auto) 76.6 H (16.0-70.0) % Lymph % (Auto) 13.4 (9.0-44.0) % [place] % (Auto) 7.4 (0.0-8.0) % Eos % (Auto) 2.1 (0.0-4.0) % Baso % (Auto) 0.5 (0.0-2.0) % Neut # (Auto) 5.3 (1.8-7.7) th/mm3 Lymph # (Auto) 0.9 L (1.0-4.8) th/mm3 [place] # (Auto) 0.5 (0.0-0.9) th/mm3 Eos # (Auto) 0.1 (0.0-0.4) th/mm3 Baso # (Auto) 0.0 (0.0-0.2) th/mm3 WBC Differential . Differential Comment Auto diff final PT 10.5 (9.8-11.6) sec INR 1.0 Ratio APTT 23.3 L (23.4-31.7) sec Sodium (136-145) meq/L Potassium (3.5-5.1) meq/L Chloride (98-107) meq/L Carbon Dioxide (21.0-32.0) meq/L Anion Gap (5-15) meq/L BUN (7-18) mg/dL Creatinine (0.50-1.00) mg/dL Estimated GFR (>89) mL/min Random Glucose (74-106) mg/dL Lactic Acid (0.4-2.0) mmol/L Calcium (8.5-10.1) mg/dL Magnesium (1.5-2.5) mg/dL Total Bilirubin (0.2-1.0) mg/dL AST (15-37) U/L ALT (10-53) U/L Alkaline Phosphatase (45-117) U/L Total Creatine Kinase Cancelled Troponin I Cancelled Total Protein (6.4-8.2) g/dL Albumin (3.4-5.0) g/dL Lipase Cancelled Urine Color (Yellw/Straw) Urine Clarity (Clear) Urine pH (5.0-8.5) Ur Specific [place] (1.002-1.035) Urine Protein (Neg-Trace) mg/dL Urine Glucose (UA) (Negative) mg/dL Urine Ketones (Negative) mg/dL Urine Occult Blood (Negative) Urine Nitrate (Negative) Urine Bilirubin (Negative) Urine Urobilinogen (Less than 2) mg/dL Ur Leukocyte Esterase (Negative) Urine RBC (0-3) /hpf Urine WBC (0-5) /hpf Ur Squamous Epith Cells (0-5) /hpf Micro UA Comment Ur Microscopic Review Urine Culture Comments 10/26/18 10/26/18 10/26/18 Range/Units 08:44 08:44 08:44 WBC (4.0-11.0) th/mm3 RBC (4.00-5.30) mil/mm3 Hgb (11.6-15.3) gm/dL Hct (35.0-46.0) % MCV (80.0-100.0) fL MCH (27.0-34.0) pg MCHC (32.0-36.0) % RDW (11.6-17.2) % Plt Count (150-450) th/mm3 MPV (7.0-11.0) fL Neut % (Auto) (16.0-70.0) % Lymph % (Auto) (9.0-44.0) % [place] % (Auto) (0.0-8.0) % Eos % (Auto) (0.0-4.0) % Baso % (Auto) (0.0-2.0) % Neut # (Auto) (1.8-7.7) th/mm3 Lymph # (Auto) (1.0-4.8) th/mm3 [place] # (Auto) (0.0-0.9) th/mm3 Eos # (Auto) (0.0-0.4) th/mm3 Baso # (Auto) (0.0-0.2) th/mm3 WBC Differential Differential Comment PT (9.8-11.6) sec INR Ratio APTT (23.4-31.7) sec Sodium 134 L (136-145) meq/L Potassium 3.4 L D (3.5-5.1) meq/L Chloride 103 (98-107) meq/L Carbon Dioxide 19.4 L (21.0-32.0) meq/L Anion Gap 12 (5-15) meq/L BUN 29 H (7-18) mg/dL Creatinine 1.30 H (0.50-1.00) mg/dL Estimated GFR 39 L (>89) mL/min Random Glucose 103 (74-106) mg/dL Lactic Acid 1.5 (0.4-2.0) mmol/L Calcium 8.7 (8.5-10.1) mg/dL Magnesium 1.7 (1.5-2.5) mg/dL Total Bilirubin 0.9 (0.2-1.0) mg/dL AST 32 (15-37) U/L ALT 38 (10-53) U/L Alkaline Phosphatase 63 (45-117) U/L Total Creatine Kinase 36 Troponin I Less than 0.02 L Total Protein 5.8 L D (6.4-8.2) g/dL Albumin 3.6 (3.4-5.0) g/dL Lipase 624 H Urine Color Yellow (Yellw/Straw) Urine Clarity Clear (Clear) Urine pH 5.0 (5.0-8.5) Ur Specific [place] 1.013 (1.002-1.035) Urine Protein Negative (Neg-Trace) mg/dL Urine Glucose (UA) Negative (Negative) mg/dL Urine Ketones Trace H (Negative) mg/dL Urine Occult Blood Small H (Negative) Urine Nitrate Negative (Negative) Urine Bilirubin Negative (Negative) Urine Urobilinogen Less than 2 (Less than 2) mg/dL Ur Leukocyte Esterase Small H (Negative) Urine RBC 9 H (0-3) /hpf Urine WBC 7 H (0-5) /hpf Ur Squamous Epith Cells 1 (0-5) /hpf Micro UA Comment Culture not ind Ur Microscopic Review Not Reportable Urine Culture Comments Culture not ind Imaging Data Attestation: I personally reviewed and interpreted this imaging study as follows : Radiologist's impression: Abdomen/Pelvis CT 10/26/18 08:32 CONCLUSION: 1. Mild extrahepatic biliary ductal dilatation of undetermined significance. 2. Otherwise stable CT appearance of the abdomen or pelvis Head CT 10/26/18 08:32 CONCLUSION: Stable brain appearance with no acute findings. . Chest X-Ray 10/26/18 08:33 CONCLUSION: No acute disease Discharge Plan Discharge Disposition Patient Disposition: ED Admit(ED Internal Use Only) Discharge Order Discharge Orders: ED Use Only Admit Order (Routine); Ordered 10/26/18 Ordered By: Frida Johnson Discharge Details Diagnosis: Hypothermia, Vomiting, Elevated lipase Physicians Team ED Provider: Frida Johnson Primary Care Provider: Roly Shultz Attending Provider: Phyllis Baugh Discharge Interventions Interventions: Vital Signs Last Done: 10/26/18 10:01 Status ED Status: Admitted Observation Patient
[2018-10-26 09:00] LABS: Baso % (Auto) 0.5 % (0.0-2.0); Eos # (Auto) 0.1 th/mm3 (0.0-0.4); Eos % (Auto) 2.1 % (0.0-4.0); Hematocrit 34.2 % (35.0-46.0); Hemoglobin 11.7 gm/dL (11.6-15.3); Lymph # (Auto) 0.9 th/mm3 (1.0-4.8); Lymph % (Auto) 13.4 % (9.0-44.0); Mean Corpuscular HGB Conc 34.3 % (32.0-36.0); Mean Corpuscular Hemoglobin 32.2 pg (27.0-34.0); Mean Corpuscular Volume 93.9 fL (80.0-100.0); Mean Platelet Volume 7.6 fL (7.0-11.0); Mono # (Auto) 0.5 th/mm3 (0.0-0.9); Mono % (Auto) 7.4 % (0.0-8.0); Neut # (Auto) 5.3 th/mm3 (1.8-7.7); Neut % (Auto) 76.6 % (16.0-70.0); Platelet Count 142 th/mm3 (150-450); Red Blood Count 3.64 mil/mm3 (4.00-5.30); Red Cell Distribution Width 14.4 % (11.6-17.2); White Blood Count 6.9 th/mm3 (4.0-11.0)
[2018-10-26 09:12] LABS: Activated Partial Thrombo Time 23.3 sec (23.4-31.7); Bilirubin,Urine Negative (Negative); Clarity,Urine Clear (Clear); Color,Urine Yellow (Yellw/Straw); Glucose,Urine (UA) Negative (Negative); Leukocyte Esterase,Urine Small (Negative); Nitrite,Urine Negative (Negative); Prothrombin Time 10.5 sec (9.8-11.6); Specific Gravity,Urine 1.013 (1.002-1.035); Squamous Epithelial Cell,Urine 1 /hpf (0-5)
--- NOTE | 2018-10-26 09:16 | XR ---
EXAM DATE: 10/26/2018 9:13 AM EST AGE/SEX: 78 years / Female INDICATIONS: Fever. CLINICAL DATA: This is the patient's subsequent encounter. Patient reports that signs and symptoms h ave been present for 2 days and indicates a pain score of 2/10. MEDICAL/SURGICAL HISTORY: None. Pacemaker. COMPARISON: [facility] [place], CHEST 2V PA&LAT, 10/25/2018. . FINDINGS: A pacing implement is present with control pack over left upper chest. Lungs are focally clear. No pl eural effusion. Cardiac contours are stable and satisfactory. CONCLUSION: No acute disease Electronically signed by: Xavi Lynn MD Board Certified Radiologist 10/26/2018 9:15 AM EST
[2018-10-26 09:26] LABS: Alanine Aminotransferase 38 U/L (10-53); Albumin 3.6 g/dL (3.4-5.0); Alkaline Phosphatase 63 U/L (45-117); Anion Gap 12 meq/L (5-15); Aspartate Aminotransferase 32 U/L (15-37); Blood Urea Nitrogen 29 mg/dL (7-18); Calcium 8.7 mg/dL (8.5-10.1); Carbon Dioxide 19.4 meq/L (21.0-32.0); Chloride 103 meq/L (98-107); Glomerular Filtration Rate 39 mL/min (>89); Glucose,Random 103 mg/dL (74-106); Lipase 624 U/L (73-393); Magnesium 1.7 mg/dL (1.5-2.5); Potassium 3.4 meq/L (3.5-5.1); Sodium 134 meq/L (136-145); Total Protein 5.8 g/dL (6.4-8.2)
[2018-10-26 09:29] LABS: Creatine Kinase 36 U/L (26-192)
--- NOTE | 2018-10-26 11:23 | CT ---
EXAM DATE: 10/26/2018 11:16 AM EST AGE/SEX: 78 years / Female INDICATIONS: Patient complains of weakness. CLINICAL DATA: This is the patient's initial encounter. Patient reports that signs and symptoms have been present for 1 day and indicates a pain score of 0/10. MEDICAL/SURGICAL HISTORY: Cardiovascular disease. encephalitis, meningitis CABG. Pacemaker. RADIATION DOSE: 51.59 CTDI (mGy) ;Tabletop exam [place] [facility] [place]. . TECHNIQUE: CT of the head without contrast. Using automated exposure control and adjustment of the mA and/or kV according to patient size, radiation dose was kept as low as reasonably achievable to ob tain optimal diagnostic quality images. DICOM format image data is available electronically for revi ew and comparison. FINDINGS: Stable encephalomalacia in the right frontal and right temporal regions. No evidence of intracranial mass or hemorrhage. Ventricles are stable. Nothing to suggest acute infarction. Extracranial structur es are benign and intact. CONCLUSION: Stable brain appearance with no acute findings. . Electronically signed by: Xavi Lynn MD Board Certified Radiologist 10/26/2018 11:21 AM EST
--- NOTE | 2018-10-26 11:35 | CT ---
EXAM DATE: 10/26/2018 11:26 AM EST AGE/SEX: 78 years / Female INDICATIONS: Nausea, vomiting, weakness, epigastric pain. CLINICAL DATA: This is the patient's initial encounter. Patient reports that signs and symptoms have been present for 1 day and indicates a pain score of 4/10. MEDICAL/SURGICAL HISTORY: Carcinoma, colon. encephalitis, meningitis CABG. Pacemaker. Colost melissa. RADIATION DOSE: 10.22 CTDI (mGy) COMPARISON: [facility], CT ABDOMEN AND PELVIS W/ CONTRAST, 01/10/2017. . TECHNIQUE: Multiple contiguous axial images were obtained through the abdomen. Images were obtained using multiple row detector helical technique. Using automated exposure control and adjustment of the mA and/or kV according to patient size, radiation dose was kept as low as reasonably achievable to o btain optimal diagnostic quality images. DICOM format image data is available electronically for rev iew and comparison. FINDINGS: Lower Lungs: Minimal posterior lung base scarring or atelectasis. Liver: The liver has a homogeneous density without space-occupying lesion. Moderate extrahepatic bili emily ductal dilatation with common duct diameter of greater than a centimeter. Spleen: Homogeneous density without enlargement. Pancreas: Unremarkable without mass or calcification. Kidneys: Stable dysplastic appearance of the right kidney. Exophytic cyst arising laterally from the mid pole of the left kidney. No evidence of hydronephrosis. Adrenal Glands: Unremarkable. Aorta: The aorta and proximal iliac vessels are grossly unremarkable without aneurysmal dilation. Bowel/Mesentery: Left lower quadrant colostomy. Pelvic Ferrer's pouch. Small bowel is nondilated th roughout. Abdominal Wall: Parastomal hernia containing fat and a knuckle of transverse colon Retroperitoneum: No evidence of adenopathy in the retrocrural, para-aortic, or deep pelvic regions. Bladder: Contours are smooth. Reproductive Organs: Uterus surgically absent. No evidence of pelvic mass or free fluid. Inguinal: The inguinal region is unremarkable without evidence of adenopathy. Bony Structures: Unremarkable. CONCLUSION: 1. Mild extrahepatic biliary ductal dilatation of undetermined significance. 2. Otherwise stable CT appearance of the abdomen or pelvis Electronically signed by: Xavi Lynn MD Board Certified Radiologist 10/26/2018 11:34 AM EST
[2018-10-26] MEDS ORDERED: Acetaminophen 325 MG Tablet PO PRN (12:18)
[2018-10-26] MEDS ORDERED: Bisacodyl 10 MG Supp RECTAL PRN (12:18)
[2018-10-26] MEDS: Heparin - SQ 10,000 UNITS/ML Vial SQ SCH (14:56)
[2018-10-26] MEDS: KCL 20 mEq/D5W/NaCl 0.45% Inj 1,000 ML IV.CONT SCH (14:56)
--- NOTE | 2018-10-26 15:57 | ECG ---
Date Performed: 10/26/2018 Time Performed: 08:30:22 PTAGE: 78 years EKG: ELECTRONIC ATRIAL PACEMAKER MINIMAL ST DEPRESSION PROLONGED QT INTERVAL ABNORMAL ECG Compar ed to PREVIOUS TRACING , QT interval more prolonged. PREVIOUS TRACIN10/25/2018 11.11 DOCTOR: David Nicholson Interpretating Date/Time 10/26/2018 15:56:55
--- NOTE | 2018-10-26 19:08 | P.HPIM ---
History of Present Illness Primary Care Physician: Roly Shultz DO Chief Complaint: bustillos History of Present Illness: 78-year-old female presented with intractable nausea vomiting. Patient has been having severe headaches a couple of months, also uncontrolled blood pressures intermittently, and headaches usually every morning and become so severe she came to the emergency room a few days ago for evaluation underwent lumbar puncture to rule out encephalitis she has a history of HSV 1 encephalitis. Patient was cleared in the emergency room for discharge home, but had progressive symptoms of headache and fuzziness, with blood pressures continue to be over 190s she is also having intractable vomiting so brought back to the emergency room. There is no reported history of fevers chills worsening diarrhea or other symptoms. She states that since she was in the ER two days ago when the blood pressure cuff was constricting her right arm severely, she has had severe pain in her Right upper extremity Patient was so severely weak today after her vomiting episode that she was barely able to move. PMhx: Encephalitis, meningitis, coronary artery disease, CHF, hypertension, chronic kidney disease, and rheumatoid arthritis on chronic steroids, sick sinus syndrome with permanent pacemaker, colon cancer status post chemo and colostomy, early dementia PSXhx: Permanent pacemaker, cardiac stents, three-vessel CABG, cholecystectomy, tonsillectomy, appendectomy, colostomy SOChx: Denies tobacco, drinks 3 glasses of wine a week, ambulates independently with cane, retired anesthesiologist FAMhx: Denies premature cardiac disease stroke cancer Review of Systems forgetfullness, memory loss, headaches, unsteady gait of late, shes also very concerned regarding worsening purpura of her lower extremities of late Review of Systems: all other systems reviewed are negative [facility] Medical History Medical History Cancer (Acute) Encephalitis (Acute) Herpes (Acute) Lumbar puncture less than one week ago (Acute) Meningitis (Acute) Pacemaker (Acute) Rheumatoid arteritis (Acute) Surgical History Surgical History Hx of CABG (Acute) Social History Social History Substance History: No History of Abuse Second Hand Smoke Exposure: No Smoking Status: Former smoker Tobacco Type: Cigarettes How Often Do You Have a Drink Containing Alcohol: 2 to 3 times a week Recent Travel in [facility] within the Last 8 Weeks: Yes Recent Out of Country Travel within the Last 8 Weeks: No Immunization History Tetanus Immunization: <5 Years Medications and Allergies Allergies Allergy/AdvReac Type Severity Reaction Status Date / Time erythromycin base Allergy Severe RASH Verified 10/20/18 06:56 ibuprofen Allergy Severe RASH Verified 10/20/18 06:56 amiodarone AdvReac Severe tremors Verified 10/20/18 06:56 off balance vomiting codeine AdvReac Severe Itching Verified 10/20/18 07:00 Home Medications Medication Instructions Recorded Confirmed Type methylprednisolone 4 mg PO DAILY 10/20/18 10/26/18 History metoprolol tartrate 25 mg PO BID 10/20/18 10/26/18 History temazepam 15 mg PO HS 10/20/18 10/26/18 History clonidine HCl 0.1 mg PO PRN 10/25/18 10/26/18 History lisinopril 5 mg PO DAILY 10/25/18 10/26/18 History Active Medications: Active Medications Acetaminophen (Tylenol) 650 mg PO Q4H PRN PRN Reason: Temp > 100.4 Last Admin: 10/26/18 13:44 Dose: 650 mg Hydrocodone Bitart/Acetaminophen ([place] 5/325) 1 tab PO Q4H PRN PRN Reason: PAIN SCALE 6 TO 10 Last Admin: 10/26/18 16:12 Dose: 1 tab Al Hydroxide/Mg Hydroxide (Milk Of Adonay Caceres) 30 ml PO Q12H PRN PRN Reason: Mild Constipation Bisacodyl (Dulcolax Supp) 10 mg RECTAL DAILY PRN PRN Reason: SEVERE CONSITIPATION Enalaprilat (Vasotec Inj) 1.25 mg IV.PUSH Q6H PRN PRN Reason: HYPERTENSION Heparin Sodium (Porcine) (Heparin Inj) 5,000 units SQ Q12H SEKOU Last Admin: 10/26/18 14:56 Dose: 5,000 units Sodium Chloride (Ns Inj) 1,000 mls @ 100 mls/hr IV.CONT .Q10H SEKOU Potassium Chloride/Dextrose/Sod Cl (D5w/1/2ns + Kcl 20 Meq Inj) 1,000 mls @ 100 mls/hr IV.CONT .Q10H SEKOU Last Admin: 10/26/18 14:56 Dose: 100 mls/hr Lactulose (Lactulose Liq) 30 ml PO DAILY PRN PRN Reason: SEVERE CONSITIPATION Lisinopril (Prinivil) 10 mg PO DAILY [facility] Methylprednisolone (Medrol) 4 mg PO DAILY [facility] Metoprolol Tartrate (Lopressor) 25 mg PO BID [facility] Ondansetron HCl (Zofran Inj) 4 mg IV.PUSH Q6H PRN PRN Reason: NAUSEA OR VOMITING Pantoprazole Sodium (Protonix) 40 mg PO DAILY [facility] Senna/Docusate Sodium (Cathy-Colace) 1 tab PO BID [facility] Sennosides (Senokot) 17.2 mg PO Q12H PRN PRN Reason: Moderate Constipation Sodium Chloride (Ns Flush) 2 ml IV.FLUSH BID SEKOU Sodium Chloride (Ns Flush) 2 ml IV.FLUSH PRN PRN PRN Reason: FLUSH AFTER USING IV ACCESS Temazepam (Restoril) 15 mg PO HS [facility] Physical Exam Vital signs: Last Vital Signs Temp 98.6 F 10/26/18 16:00 Pulse 60 10/26/18 16:00 Resp 16 10/26/18 16:00 BP 187/76 H 10/26/18 16:00 Pulse Ox 99 10/26/18 16:00 Intake & Output 10/24/18 10/25/18 10/26/18 10/27/18 06:59 06:59 06:59 06:59 Intake Total 580 / 580 Output Total 100 / 100 Balance 480 / 480 Weight 75 kg GEN well-developed well-nourished spry appearing 78-year-old white female awake alert oriented to person time and place, pleasant in no acute distress, HEENT normocephalic atraumatic, Pupils equal reactive, sclerae anicteric, extraocular motion intact, mucosa is dry. posterior pharynx without exudate NECK supple no JVD trachea midline thyroid smooth not enlarged ANT CHEST WALL without mass or tenderness to palpation, pacemaker site benign without tenderness HEART S1-S2 regular without murmur gallops or clicks LUNGS clear to auscultation without wheeze rales or rhonchi , full symmetric expansion BACK exam is no CVA tenderness or mass ABDOMEN soft nondistended positive bowel sounds no guarding rebound rigidity LYMPH NODES no cervical, axillary or inguinal adenopathy noted EXTREMITIES no clubbing cyanosis or significant edema, peripheral pulses palpable +2, no calf tenderness, right upper extremity very tender to palpation without erythema or increased warmth pulses intact NEUROLOGIC cranial nerves II through XII appear grossly intact, strength is 4 out of 5 symmetrical no clonus or rigidity SKIN warm and dry with good turgor, erythematous rash right shoulder, purpura bilateral lower extremities Results Labs CBC & Chem 7: 10/26/18 08:44 12 08:44 Imaging Impressions Abdomen/Pelvis CT 10/26/18 08:32 CONCLUSION: 1. Mild extrahepatic biliary ductal dilatation of undetermined significance. 2. Otherwise stable CT appearance of the abdomen or pelvis Head CT 10/26/18 08:32 CONCLUSION: Stable brain appearance with no acute findings. . Chest X-Ray 10/26/18 08:33 CONCLUSION: No acute disease Caprini VTE Risk Assessment Caprini VTE Risk Assessment: Moderate/High Risk (score >= 2) Caprini Risk Assessment Model: Point Value = 1 Point Value = 2 Point Value = 3 Point Value = 5 Age 41-60 Minor surgery BMI > 25 kg/m2 Swollen legs Varicose veins or History of unexplained or recurrent spontaneous Oral contraceptives or hormone replacement Sepsis (< 1 month) Serious lung disease, including pneumonia (< 1 month) Abnormal pulmonary function Acute myocardial infarction Congestive heart failure (< 1 month) History of inflammatory bowel disease Medical patient at bed rest Age 61-74 Arthroscopic surgery Major open surgery (> 45 min) Laparoscopic surgery (> 45 min) Malignancy Confined to bed (> 72 hours) Immobilizing plaster cast Central venous access Age >= 75 History of VTE Family history of VTE Factor V Leiden Prothrombin [id number] Lupus anticoagulant Anticardiolipin antibodies Elevated serum homocysteine Heparin-induced thrombocytopenia Other congenital or acquired thrombophilia Stroke (< 1 month) Elective arthroplasty Hip, pelvis, or leg fracture Acute spinal cord injury (< 1 month) Prophylaxis Regimen: Total Risk Factor Score Risk Level Prophylaxis Regimen 0-1 Low Early ambulation 2 Moderate Order ONE of the following: *Sequential Compression Device (SCD) *Heparin 5000 units SQ BID 3-4 Higher Order ONE of the following medications: *Heparin 5000 units SQ TID *Enoxaparin/Lovenox 40 mg SQ daily (WT < 150 kg, CrCl > 30 mL/min) *Enoxaparin/Lovenox 30 mg SQ daily (WT < 150 kg, CrCl > 10-29 mL/min) *Enoxaparin/Lovenox 30 mg SQ BID (WT < 150 kg, CrCl > 30 mL/min) AND/OR *Sequential Compression Device (SCD) 5 or more Highest Order ONE of the following medications: *Heparin 5000 units SQ TID (Preferred with Epidurals) *Enoxaparin/Lovenox 40 mg SQ daily (WT < 150 kg, CrCl > 30 mL/min) *Enoxaparin/Lovenox 30 mg SQ daily (WT < 150 kg, CrCl > 10-29 mL/min) *Enoxaparin/Lovenox 30 mg SQ BID (WT < 150 kg, CrCl > 30 mL/min) AND *Sequential Compression Device (SCD) Assessment and Plan Plan INTRACTIBLE NV - related to malig htn, pud? (chronic steroids) enteritis? vs other, antiemetics, supportive care PRADEEP on ckd III w dehydration , cont ivf as tolerated MALIGNANT HTN - cont bp control, add norvasc increase lisinopril, avoid clonidine if possible. SHINGLES r shoulder? empiric acyclovir - pain control PAIN RUE post compression w bp cuff - will get venous doppler rule out dvt, cont pain control HEADACHES uncontrolled - w hx HSV encephalitis - more likely uncontrolled htn but consult neurology COLON CA s/p colostomy stable CAD hx CABG w diastolic chf hx, clinically compensated, cont home meds RA on chronic steroids - cont methylprednisolone as tolerated, stress dose if hypotensive SSS w PPM - stable LIPASE elevation doubt acute pancreatitis likely related to nv, mild extrahepatic mayra dilation prob post cholycystectomy stable doubt biliary stone/ obstruction EARLY DEMENTIA - no tx, monitor dvt prophylaxis - sc heparin dispo - home vs rehab pending clinical course 1-2 days H&P: Quality VTE Deep Vein Thrombosis/Pulmonary Embolism Present on Admission: No
[2018-10-26] MEDS: Sod Chloride 0.9% Inj 1,000 ML IV.CONT SCH (19:41)
[2018-10-26] MEDS ORDERED: amLODIPine 5 MG Tablet PO SCH (20:00)
[2018-10-26] MEDS: Temazepam 15 MG Capsule PO SCH (20:51)
[2018-10-26] MEDS: Senna/Docusate Sodium 8.6/50 MG Tablet PO SCH (20:51)
[2018-10-26] MEDS: Metoprolol Tartrate 25 MG Tablet PO SCH (20:52)
[2018-10-26] MEDS: Acyclovir 800 MG Tablet PO SCH (21:00)
[2018-10-27] MEDS: Sod Chloride 0.9% Inj 1,000 ML IV.CONT SCH ×3 (00:55→19:46)
[2018-10-27] MEDS: Heparin - SQ 10,000 UNITS/ML Vial SQ SCH ×2 (00:55→14:25)
[2018-10-27] MEDS: KCL 20 mEq/D5W/NaCl 0.45% Inj 1,000 ML IV.CONT SCH ×3 (00:59→14:26)
[2018-10-27] MEDS ORDERED: Morphine Inj 4 MG/ML Vial IV.PUSH ONE (01:19)
[2018-10-27] MEDS: Acyclovir 800 MG Tablet PO SCH ×5 (06:05→21:01)
--- NOTE | 2018-10-27 07:11 | P.CONNEU ---
History of Present Illness Service: Neurology Reason for Consult: headache Primary Care Provider: Roly Shultz DO Chief Complaint: bustillos History of Present Illness: 78-year-old female admitted for various complaints including headache and nauseousness. She had a recent lumbar puncture performed which was negative for herpes PCR. 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 She had some pain in her arm as well as a knee developing rash in the upper right scapular region and right posterior neck. Pleuritic component as well as some hyperpathia. She is noted to have elevated blood pressures as well. Denies any vision loss or focal weakness. She stays with her sister takes care of her is at bedside at present. Review of Systems All other systems reviewed negative except as stated in HPI [facility] - History History Provided By: Patient - Medical History Medical History: Medical History (Last Reviewed 10/26/18 @ 08:43 by Frida Johnson MD) Cancer Encephalitis Herpes Lumbar puncture less than one week ago Meningitis Pacemaker Rheumatoid arteritis - Surgical History Surgical History: Surgical History (Last Reviewed 10/26/18 @ 08:43 by Frida Johnson MD) Hx of CABG - Tobacco History Second Hand Smoke Exposure: No Tobacco Use In Past 30 Days: (Quit in 1984) Smoking Status: Former smoker Tobacco Type: Cigarettes - Alcohol History How Often Do You Have a Drink Containing Alcohol: 2 to 3 times a week - Substance Use History Substance History: No History of Abuse - Travel History Recent Travel in the [place] Within the Last 8 Weeks: Yes Recent Travel Out of the Country Within the Last 8 Weeks: No - Immunization History Tetanus Immunization: <5 Years Medications and Allergies Active Medications: Active Medications Acetaminophen (Tylenol) 650 mg PO Q4H PRN PRN Reason: Temp > 100.4 Last Admin: 10/26/18 13:44 Dose: 650 mg Hydrocodone Bitart/Acetaminophen ([place]urora 5/325) 1 tab PO Q4H PRN PRN Reason: PAIN SCALE 6 TO 10 Last Admin: 10/27/18 06:05 Dose: 1 tab Acyclovir (Zovirax) 800 mg PO 5 TIMES A DAY [facility] Last Admin: 10/27/18 06:05 Dose: 800 mg Al Hydroxide/Mg Hydroxide (Milk Of Magnesia Liq) 30 ml PO Q12H PRN PRN Reason: Mild Constipation Amlodipine Besylate (Norvasc) 5 mg PO Q24H [facility] Last Admin: 10/26/18 20:52 Dose: 5 mg Bisacodyl (Dulcolax Supp) 10 mg RECTAL DAILY PRN PRN Reason: SEVERE CONSITIPATION Enalaprilat (Vasotec Inj) 1.25 mg IV.PUSH Q6H PRN PRN Reason: HYPERTENSION Heparin Sodium (Porcine) (Heparin Inj) 5,000 units SQ Q12H [facility] Last Admin: 10/27/18 00:55 Dose: 5,000 units Sodium Chloride (Ns Inj) 1,000 mls @ 100 mls/hr IV.CONT .Q10H [facility] Last Admin: 10/27/18 00:55 Dose: Not Given Potassium Chloride/Dextrose/Sod Cl (D5w/1/2ns + Kcl 20 Meq Inj) 1,000 mls @ 100 mls/hr IV.CONT .Q10H [facility] Last Admin: 10/27/18 00:59 Dose: 100 mls/hr Lactulose (Lactulose Liq) 30 ml PO DAILY PRN PRN Reason: SEVERE CONSITIPATION Lisinopril (Prinivil) 10 mg PO DAILY [facility] Methylprednisolone (Medrol) 4 mg PO DAILY [facility] Metoprolol Tartrate (Lopressor) 25 mg PO BID [facility] Last Admin: 10/26/18 20:52 Dose: 25 mg Ondansetron HCl (Zofran Inj) 4 mg IV.PUSH Q6H PRN PRN Reason: NAUSEA Last Admin: 10/27/18 03:33 Dose: 4 mg Pantoprazole Sodium (Protonix) 40 mg PO DAILY [facility] Last Admin: 10/26/18 20:52 Dose: 40 mg Senna/Docusate Sodium (Cathy-Colace) 1 tab PO BID [facility] Last Admin: 10/26/18 20:51 Dose: 1 tab Sennosides (Senokot) 17.2 mg PO Q12H PRN PRN Reason: Moderate Constipation Sodium Chloride (Ns Flush) 2 ml IV.FLUSH BID [facility] Last Admin: 10/26/18 20:52 Dose: Not Given Sodium Chloride (Ns Flush) 2 ml IV.FLUSH PRN PRN PRN Reason: FLUSH AFTER USING IV ACCESS Temazepam (Restoril) 15 mg PO HS [facility] Last Admin: 10/26/18 20:51 Dose: 15 mg Allergies Allergy/AdvReac Type Severity Reaction Status Date / Time erythromycin base Allergy Severe RASH Verified 10/20/18 06:56 ibuprofen Allergy Severe RASH Verified 10/20/18 06:56 amiodarone AdvReac Severe tremors Verified 10/20/18 06:56 off balance vomiting codeine AdvReac Severe Itching Verified 10/20/18 07:00 Home Medications Medication Instructions Recorded Confirmed Type methylprednisolone 4 mg PO DAILY 10/20/18 10/26/18 History metoprolol tartrate 25 mg PO BID 10/20/18 10/26/18 History temazepam 15 mg PO HS 10/20/18 10/26/18 History clonidine HCl 0.1 mg PO PRN 10/25/18 10/26/18 History lisinopril 5 mg PO DAILY 10/25/18 10/26/18 History Exam Vital signs: Vital Signs 10/26/18 08:30 10/26/18 09:03 10/26/18 10:01 Temperature 96.4 F L 97.6 F Pulse Rate 60 60 Respiratory Rate 18 Blood Pressure 235/100 H 179/76 H Pulse Oximetry 100 100 99 10/26/18 16:00 10/26/18 20:00 10/26/18 23:58 Temperature 98.6 F 98.4 F 97.8 F Pulse Rate 60 60 61 Respiratory Rate 16 17 20 Blood Pressure 187/76 H 198/81 H 199/77 H Pulse Oximetry 99 99 95 10/27/18 04:00 Temperature 97.8 F Pulse Rate 60 Respiratory Rate 18 Blood Pressure 150/66 H Pulse Oximetry 95 Intake & Output 10/26/18 10/27/18 10/27/18 18:59 06:59 18:59 Intake Total 580 / 580 1000 / 1000 Output Total 100 / 100 Balance 480 / 480 1000 / 1000 Weight 75 kg Intake: IV 100 / 100 1000 / 1000 D5W/1/2NS + KCL 20 mEq Inj 1, 1000 / 1000 000 ML @ 100 mls/hr IV.CONT . Q10H [facility] Rx#:[id number] Rocephin Inj 1,000 MG In NS Inj 100 / 100 100 ML @ 200 mls/hr IV.SIG ONCE ONE Rx#:[id number] Oral 480 / 480 Output: Stool Amount (Stoma) 100 / 100 Left Lower Abdomen 100 / 100 Other: # Voids 2 Weight On Admission 75 kg Narrative: GENERAL: in NAD, SKIN: Warm and dry. Vesicular eruptions noted upper right scapular region as well as right lower neck with mild erythema appear to be in clusters sensitive to touch HEAD: Atraumatic. Normocephalic. EYES: Pupils equal and round. No scleral icterus. ENT: No nasal bleeding or discharge. Mucous membranes pink and moist. NECK: Trachea midline. No JVD. CARDIOVASCULAR: Regular rate and rhythm. RESPIRATORY: No accessory muscle use. GASTROINTESTINAL: Abdomen soft, non-tender, nondistended. MUSCULOSKELETAL: Extremities without clubbing, cyanosis, or edema. No obvious deformities. NEUROLOGICAL: Awake and alert. No aphasia, oriented x3 fluent articulate, No facial asymmetry, OU 3-2mm, eomi, VFF, No drift, Motor grossly within normal limits. Five out of 5 muscle strength in the arms and legs. No neglect pin normal no clonus plantar flexor gait not assessed secondary fall risk PSYCHIATRIC: Appropriate mood and affect; insight and judgment normal. - Constitutional no acute distress - Routine HEENT Exam Head: Present: normocephalic Eye: Present: EOMI Results - Labs CBC & Chem 7: 10/26/18 08:44 10/27/18 07:36 Labs: Laboratory Results - last 24 hr 10/26/18 10/26/18 10/26/18 08:44 08:44 08:44 WBC 6.9 RBC 3.64 L Hgb 11.7 Hct 34.2 L MCV 93.9 MCH 32.2 MCHC 34.3 RDW 14.4 Plt Count 142 L MPV 7.6 Neut % (Auto) 76.6 H Lymph % (Auto) 13.4 Maries % (Auto) 7.4 Eos % (Auto) 2.1 Baso % (Auto) 0.5 Neut # (Auto) 5.3 Lymph # (Auto) 0.9 L Maries # (Auto) 0.5 Eos # (Auto) 0.1 Baso # (Auto) 0.0 WBC Differential . Differential Comment Auto diff final PT 10.5 INR 1.0 APTT 23.3 L Sodium Potassium Chloride Carbon Dioxide Anion Gap BUN Creatinine Estimated GFR Random Glucose Lactic Acid Calcium Magnesium Total Bilirubin AST ALT Alkaline Phosphatase Total Creatine Kinase Cancelled Troponin I Cancelled Total Protein Albumin Lipase Cancelled Urine Color Urine Clarity Urine pH Ur Specific [place] Urine Protein Urine Glucose (UA) Urine Ketones Urine Occult Blood Urine Nitrate Urine Bilirubin Urine Urobilinogen Ur Leukocyte Esterase Urine RBC Urine WBC Ur Squamous Epith Cells Micro UA Comment Ur Microscopic Review Urine Culture Comments 10/26/18 10/26/18 10/26/18 08:44 08:44 08:44 WBC RBC Hgb Hct MCV MCH MCHC RDW Plt Count MPV Neut % (Auto) Lymph % (Auto) Maries % (Auto) Eos % (Auto) Baso % (Auto) Neut # (Auto) Lymph # (Auto) Maries # (Auto) Eos # (Auto) Baso # (Auto) WBC Differential Differential Comment PT INR APTT Sodium 134 L Potassium 3.4 L D Chloride 103 Carbon Dioxide 19.4 L Anion Gap 12 BUN 29 H Creatinine 1.30 H Estimated GFR 39 L Random Glucose 103 Lactic Acid 1.5 Calcium 8.7 Magnesium 1.7 Total Bilirubin 0.9 AST 32 ALT 38 Alkaline Phosphatase 63 Total Creatine Kinase 36 Troponin I Less than 0.02 L Total Protein 5.8 L D Albumin 3.6 Lipase 624 H Urine Color Yellow Urine Clarity Clear Urine pH 5.0 Ur Specific [place]wood 1.013 Urine Protein Negative Urine Glucose (UA) Negative Urine Ketones Trace H Urine Occult Blood Small H Urine Nitrate Negative Urine Bilirubin Negative Urine Urobilinogen Less than 2 Ur Leukocyte Esterase Small H Urine RBC 9 H Urine WBC 7 H Ur Squamous Epith Cells 1 Micro UA Comment Culture not ind Ur Microscopic Review Not Reportable Urine Culture Comments Culture not ind - Imaging Impressions Abdomen/Pelvis CT 10/26/18 08:32 CONCLUSION: 1. Mild extrahepatic biliary ductal dilatation of undetermined significance. 2. Otherwise stable CT appearance of the abdomen or pelvis Head CT 10/26/18 08:32 CONCLUSION: Stable brain appearance with no acute findings. . Chest X-Ray 10/26/18 08:33 CONCLUSION: No acute disease Review/Management - Diagnosis (1) Hypertension Code(s): I10 - Essential (primary) hypertension Status: Acute Current Visit : Yes (2) Zoster Code(s): B02.9 - Zoster without complications Status: Acute Current Visit: Yes (3) Herpes Code(s): B00.9 - Herpesviral infection, unspecified Status: Acute Current Visit: No - Review/Management Plan: Appears to have ruptured with shingles which may be related to recent stressors Hypertensive urgency. neurologically stable otherwise Afebrile, absence of leukocytosis Recommendation Acyclovir Agree with prednisone trial Blood pressure control Pain control Fluids Discharge planning likely in the a.m. Discussed with patient and her sister
[2018-10-27 09:11] LABS: Calcium 8.5 mg/dL (8.5-10.1); Carbon Dioxide 23.8 meq/L (21.0-32.0); Potassium 4.5 meq/L (3.5-5.1)
[2018-10-27] MEDS: Senna/Docusate Sodium 8.6/50 MG Tablet PO SCH ×2 (09:40→21:03)
[2018-10-27] MEDS: Metoprolol Tartrate 25 MG Tablet PO SCH ×2 (09:40→21:01)
[2018-10-27] MEDS: Lisinopril 5 MG Tablet PO SCH (09:45)
--- NOTE | 2018-10-27 12:21 | US ---
EXAM DATE: 10/27/2018 12:19 PM EST AGE/SEX: 78 years / Female INDICATIONS: Right arm pain. CLINICAL DATA: This is the patient's initial encounter. Patient reports that signs and symptoms have been present for 1 week and indicates a pain score of 10/10. MEDICAL/SURGICAL HISTORY: Rheumatoid arthritis. Cancer. Encephalitis. Herpes. Lumbar puncture. Meningitis. Pacemaker. CABG. COMPARISON: No prior exams available for comparison. FINDINGS: The vessels are compressible and augmentation response is documented. No filling defects a re seen. The flow is phasic with respiration. CONCLUSION: 1. Negative for deep venous thrombosis Electronically signed by: Elijah Simmons MD Board Certified Radiologist 10/27/2018 12:20 PM EST
--- NOTE | 2018-10-27 14:47 | P.PNIM ---
Subjective Interval history: 78-year-old female admitted with accelerated hypertension and intractable nausea vomiting, headaches. With complaints of right shoulder and arm pain. Found to have rash suspicious for shingles. Patient seen and examined, doing a little better today but still not feeling very well, vomited her Zovirax this morning, but had not eaten anything yet. Blood pressure still a bit elevated, did not still having some headache but improved from admission. Currently no abdominal pain. Wants to eat. Physical Exam Vital signs: Last Vital Signs Temp 98.7 F 10/27/18 12:00 Pulse 61 10/27/18 12:00 Resp 18 10/27/18 12:00 BP 140/65 10/27/18 13:12 Pulse Ox 97 10/27/18 12:00 Intake & Output 10/25/18 10/26/18 10/27/18 10/28/18 06:59 06:59 06:59 06:59 Intake Total 1580 / 1580 1000 / 1000 Output Total 100 / 100 Balance 1480 / 1480 1000 / 1000 Weight 75 kg Well-developed well-nourished spry 78-year-old white female Heart S1-S2 regular Lungs clear bilateral no wheeze no rhonchi Abdomen soft nondistended positive bowel sounds no mass no tenderness Extremities no clubbing cyanosis no edema, ecchymosis Results Labs CBC & Chem 7: 10/26/18 08:44 10/27/18 07:36 Labs: Microbiology 10/26/18 08:42 Blood - Peripheral Aerobic Blood Culture - Preliminary No growth in 1 day 10/26/18 08:42 Blood - Peripheral Anaerobic Blood Culture - Preliminary No growth in 1 day 10/26/18 08:42 Blood - Peripheral Aerobic Blood Culture - Preliminary No growth in 1 day 10/26/18 08:42 Blood - Peripheral Anaerobic Blood Culture - Preliminary No growth in 1 day Imaging Imaging: Impressions Venous Doppler Study 10/27/18 00:00 CONCLUSION: 1. Negative for deep venous thrombosis Assessment and Plan Plan INTRACTIBLE NV - related to malig htn, pud? (chronic steroids) enteritis? vs other, antiemetics, supportive care, advance diet as tolerated today PRADEEP on ckd III w dehydration , cont ivf as tolerated encourage p.o. fluids MALIGNANT HTN - cont bp control, changed to nifedipine, increase lisinopril, avoid clonidine if possible. SHINGLES r shoulder? empiric acyclovir - pain control PAIN RUE post compression w bp cuff - will get venous doppler is negative for DVT, continue pain control HEADACHES uncontrolled - w hx HSV encephalitis - more likely uncontrolled htn, neurology consult appreciated without any acute issues noted COLON CA s/p colostomy stable CAD hx CABG w diastolic chf hx, clinically compensated, cont home meds RA on chronic steroids - cont methylprednisolone as tolerated, stress dose if hypotensive SSS w PPM - stable LIPASE elevation doubt acute pancreatitis likely related to nv, mild extrahepatic mayra dilation prob post cholecystectomy stable doubt biliary stone/ obstruction, will repeat lipase EARLY DEMENTIA - no tx, monitor dvt prophylaxis - sc heparin dispo -increase out of bed as tolerated, ambulate as tolerated, DC planning home home tomorrow if blood pressures improved and tolerating diet. Progress Note: Quality VTE Deep Vein Thrombosis/Pulmonary Embolism Present on Admission: No
[2018-10-27] MEDS: Multivitamin/Minerals Therapeutic Tablet PO SCH ×3 (16:35→16:48)
[2018-10-27] MEDS: Temazepam 15 MG Capsule PO SCH (21:01)
[2018-10-28] MEDS: KCL 20 mEq/D5W/NaCl 0.45% Inj 1,000 ML IV.CONT SCH ×2 (00:30→08:30)
[2018-10-28] MEDS: Heparin - SQ 10,000 UNITS/ML Vial SQ SCH (03:09)
[2018-10-28] MEDS: Sod Chloride 0.9% Inj 1,000 ML IV.CONT SCH (05:13)
[2018-10-28] MEDS: Acyclovir 800 MG Tablet PO SCH ×2 (06:46→10:53)
[2018-10-28] MEDS: Metoprolol Tartrate 25 MG Tablet PO SCH (08:23)
[2018-10-28] MEDS: Lisinopril 5 MG Tablet PO SCH (08:24)
[2018-10-28] MEDS: Multivitamin/Minerals Therapeutic Tablet PO SCH (08:24)
[2018-10-28] MEDS: Senna/Docusate Sodium 8.6/50 MG Tablet PO SCH (08:28)
--- NOTE | 2018-10-28 10:35 | P.PNNEU ---
Subjective Subjective Comments: No cp, no dyspnea, no bustillos, no focal weakness, no vision loss Rash across his right anterior chest now. Feels well tolerating p.o. right to go home Active Medications: Active Medications Acetaminophen (Tylenol) 650 mg PO Q4H PRN PRN Reason: Temp > 100.4 Last Admin: 10/26/18 13:44 Dose: 650 mg Hydrocodone Bitart/Acetaminophen ([place] 5/325) 1 tab PO Q4H PRN PRN Reason: PAIN SCALE 6 TO 10 Last Admin: 10/27/18 19:24 Dose: 1 tab Acyclovir (Zovirax) 800 mg PO 5 TIMES A DAY [facility] Last Admin: 10/28/18 06:46 Dose: 800 mg Al Hydroxide/Mg Hydroxide (Milk Of Magnesia Liq) 30 ml PO Q12H PRN PRN Reason: Mild Constipation Bisacodyl (Dulcolax Supp) 10 mg RECTAL DAILY PRN PRN Reason: SEVERE CONSITIPATION Enalaprilat (Vasotec Inj) 1.25 mg IV.PUSH Q6H PRN PRN Reason: HYPERTENSION Heparin Sodium (Porcine) (Heparin Inj) 5,000 units SQ Q12H [facility] Last Admin: 10/28/18 03:09 Dose: 5,000 units Sodium Chloride (Ns Inj) 1,000 mls @ 100 mls/hr IV.CONT .Q10H [facility] Last Admin: 10/28/18 05:13 Dose: Not Given Potassium Chloride/Dextrose/Sod Cl (D5w/1/2ns + Kcl 20 Meq Inj) 1,000 mls @ 100 mls/hr IV.CONT .Q10H [facility] Last Admin: 10/28/18 08:30 Dose: Not Given Lactulose (Lactulose Liq) 30 ml PO DAILY PRN PRN Reason: SEVERE CONSITIPATION Lisinopril (Prinivil) 10 mg PO DAILY [facility] Last Admin: 10/28/18 08:24 Dose: 10 mg Methylprednisolone (Medrol) 4 mg PO DAILY [facility] Last Admin: 10/27/18 14:23 Dose: 4 mg Metoprolol Tartrate (Lopressor) 25 mg PO BID [facility] Last Admin: 10/28/18 08:23 Dose: 25 mg Multivitamins/Minerals (Theragran-M) 1 tab PO DAILY [facility] Last Admin: 10/28/18 08:24 Dose: 1 tab Nifedipine (Procardia Xl) 60 mg PO DAILY [facility] Last Admin: 10/28/18 08:28 Dose: 60 mg Ondansetron HCl (Zofran Inj) 4 mg IV.PUSH Q6H PRN PRN Reason: NAUSEA Last Admin: 10/27/18 14:25 Dose: 4 mg Pantoprazole Sodium (Protonix) 40 mg PO DAILY [facility] Last Admin: 10/28/18 08:23 Dose: 40 mg Prednisone (Deltasone) 30 mg PO ONCE ONE Stop: 10/28/18 10:46 Senna/Docusate Sodium (Cathy-Colace) 1 tab PO BID [facility] Last Admin: 10/28/18 08:28 Dose: Not Given Sennosides (Senokot) 17.2 mg PO Q12H PRN PRN Reason: Moderate Constipation Sodium Chloride (Ns Flush) 2 ml IV.FLUSH BID [facility] Last Admin: 10/27/18 21:03 Dose: Not Given Sodium Chloride (Ns Flush) 2 ml IV.FLUSH PRN PRN PRN Reason: FLUSH AFTER USING IV ACCESS Temazepam (Restoril) 15 mg PO HS [facility] Last Admin: 10/27/18 21:01 Dose: 15 mg Allergies/Adverse Reactions: Allergies Allergy/AdvReac Type Severity Reaction Status Date / Time erythromycin base Allergy Severe RASH Verified 10/20/18 06:56 ibuprofen Allergy Severe RASH Verified 10/20/18 06:56 amiodarone AdvReac Severe tremors Verified 10/20/18 06:56 off balance vomiting codeine AdvReac Severe Itching Verified 10/20/18 07:00 Review of Systems All other systems reviewed negative except as stated in HPI Physical Exam Vital signs: Vital Signs 10/27/18 12:00 10/27/18 13:12 10/27/18 18:10 Temperature 98.7 F Pulse Rate 61 Respiratory Rate 18 Blood Pressure 204/78 H 140/65 200/60 H Pulse Oximetry 97 10/27/18 19:37 10/27/18 19:54 10/27/18 23:39 Temperature 99.3 F 98.3 F Pulse Rate 71 60 Respiratory Rate 16 17 12 Blood Pressure 162/67 H 125/59 L Pulse Oximetry 97 97 10/28/18 03:46 10/28/18 08:00 Temperature 98.4 F 98.3 F Pulse Rate 65 66 Respiratory Rate 16 16 Blood Pressure 155/69 H 135/59 L Pulse Oximetry 95 Intake & Output 10/27/18 10/28/18 10/28/18 18:59 06:59 18:59 Intake Total 1000 / 1000 1000 / 1000 Balance 1000 / 1000 1000 / 1000 Intake: IV 1000 / 1000 1000 / 1000 D5W/1/2NS + KCL 20 mEq Inj 1, 1000 / 1000 1000 / 1000 000 ML @ 100 mls/hr IV.CONT . Q10H [facility] Rx#:[id number] Narrative: GENERAL: in NAD, looks comfortable SKIN: Warm and dry. Vesicular eruptions noted upper right scapular region, right anterior chest as well as right lower neck with mild erythema appear to be in clusters sensitive to touch HEAD: Atraumatic. Normocephalic. EYES: Pupils equal and round. No scleral icterus. ENT: No nasal bleeding or discharge. Mucous membranes pink and moist. NECK: Trachea midline. No JVD. RESPIRATORY: No accessory muscle use. GASTROINTESTINAL: Abdomen soft, non-tender, nondistended. MUSCULOSKELETAL: Extremities without clubbing, cyanosis, or edema. No obvious deformities. NEUROLOGICAL: Awake and alert. No aphasia, oriented x3 fluent articulate, No facial asymmetry, OU 3-2mm, eomi, VFF, No drift, Motor grossly within normal limits. Five out of 5 muscle strength in the arms and legs. gait not assessed secondary fall risk PSYCHIATRIC: Appropriate mood and affect; insight and judgment normal. - Constitutional no acute distress - Routine HEENT Exam Head: Present: normocephalic Eye: Present: EOMI Objective Microbiology 10/26/18 08:42 Aerobic Blood Culture - Preliminary Blood - Peripheral No growth in 1 day Anaerobic Blood Culture - Preliminary No growth in 1 day 10/26/18 08:42 Aerobic Blood Culture - Preliminary Blood - Peripheral No growth in 1 day Anaerobic Blood Culture - Preliminary No growth in 1 day Review/Management - Diagnosis (1) Hypertension Code(s): I10 - Essential (primary) hypertension Status: Acute Current Visit : Yes (2) Zoster Code(s): B02.9 - Zoster without complications Status: Acute Current Visit: Yes (3) Herpes Code(s): B00.9 - Herpesviral infection, unspecified Status: Acute Current Visit: No - Review/Management Plan: Appears to have ruptured with shingles which may be related to recent stressors Hypertensive urgency. neurologically stable otherwise Afebrile, absence of leukocytosis Recommendation Doing well Discharge planning Appreciate medical Discussed with patient and her sister Outpatient follow-up
[2018-10-28] MEDS ORDERED: predniSONE 10 MG Tablet PO ONE (10:45)
--- NOTE | 2018-10-28 10:54 | P.DCO ---
Diagnosis (1) Hypertension: Status: Acute (2) Zoster: Status: Acute (3) Herpes: Status: Acute Home Health Nursing Order: Medical education, Signs/symptoms of disease process, Medication education-adverse effect and Nursing assessment with vital signs Case Management Consult Case Management Consult-Home Health: Yes I have seen patient Emma Jaimes on 10/28/18. My clinical findings support the need for the requested home health care services because: Limited mobility due to disease progression and Deconditioned with increased weakness I certify that my clinical findings support that this patient is homebound because: Impaired cognitive ability/safety and Unsteady gait/balance _ (1) Hypertension Qualifiers: Hypertension type: (2) Zoster Qualifiers: Herpes zoster complications: Herpes zoster neurologic complication detail: Herpes zoster ocular complication detail:
--- NOTE | 2018-10-28 12:53 | P.DS ---
DS: Providers Date of admission: 10/26/18 12:20 Primary care physician: Roly Shultz DO Consults: 10/26/18 19:40 Consult to Neurology Routine Consulting Provider: Blaine Bartlett Preferred Scarfer Operator:: Blaine Bartlett Patient known to:: Blaine Bartlett Reason for Consultation: bustillos, hx encephalitis Notified:: Service Spoke with:: katina Date Notified:: 10/26/18 Time Notified:: 21:01 Ordering Provider: ROMIE Brief History from admission: 78-year-old female presented with intractable nausea vomiting. Patient has been having severe headaches a couple of months, also uncontrolled blood pressures intermittently, and headaches usually every morning and become so severe she came to the emergency room a few days ago for evaluation underwent lumbar puncture to rule out encephalitis she has a history of HSV 1 encephalitis. Patient was cleared in the emergency room for discharge home, but had progressive symptoms of headache and fuzziness, with blood pressures continue to be over 190s she is also having intractable vomiting so brought back to the emergency room. There is no reported history of fevers chills worsening diarrhea or other symptoms. She states that since she was in the ER two days ago when the blood pressure cuff was constricting her right arm severely, she has had severe pain in her Right upper extremity Patient was so severely weak today after her vomiting episode that she was barely able to move. PMhx: Encephalitis, meningitis, coronary artery disease, CHF, hypertension, chronic kidney disease, and rheumatoid arthritis on chronic steroids, sick sinus syndrome with permanent pacemaker, colon cancer status post chemo and colostomy, early dementia PSXhx: Permanent pacemaker, cardiac stents, three-vessel CABG, cholecystectomy, tonsillectomy, appendectomy, colostomy SOChx: Denies tobacco, drinks 3 glasses of wine a week, ambulates independently with cane, retired anesthesiologist FAMhx: Denies premature cardiac disease stroke cancer DS: Diagnosis Discharge Diagnosis (1) Hypertension: Status: Acute (2) Zoster: Status: Acute (3) Herpes: Status: Acute DS: Summary Patient was admitted and seen and evaluated by neurology did not feel that there is any active neurologic issue. Patient rash on her right shoulder became confluent along the dermatome consistent with shingles and she had persistent neuropathic pain in the right upper extremity associated with this. Patient's blood pressures became much better controlled she was tolerating a diet remained afebrile and oxygenating very well on room air and otherwise clinically stable for discharge home and outpatient follow-up. Diet medication activity follow-up instructions provided home health nursing to follow-up on vital signs were arranged, patient was continued on 7 more days of acyclovir as well as a short prednisone Dosepak. Time Spent with Patient Total time spent providing and/or coordinating discharge services: Less than 30 minutes Status at Discharge Functional status at discharge: uses cane/walker Overall status at discharge: patient is progressing back to baseline Quality: VTE Deep Vein Thrombosis/Pulmonary Embolism Present on Admission: No Results Labs on day of discharge: Preliminary micro results at discharge 10/26/18 08:42 Aerobic Blood Culture - Preliminary Blood - Peripheral No growth in 2 days Anaerobic Blood Culture - Preliminary No growth in 2 days 10/26/18 08:42 Aerobic Blood Culture - Preliminary Blood - Peripheral No growth in 2 days Anaerobic Blood Culture - Preliminary No growth in 2 days Impressions ITS Impressions Abdomen/Pelvis CT 10/26/18 08:32 CONCLUSION: 1. Mild extrahepatic biliary ductal dilatation of undetermined significance. 2. Otherwise stable CT appearance of the abdomen or pelvis Head CT 10/26/18 08:32 CONCLUSION: Stable brain appearance with no acute findings. . Chest X-Ray 10/26/18 08:33 CONCLUSION: No acute disease Venous Doppler Study 10/27/18 00:00 CONCLUSION: 1. Negative for deep venous thrombosis Discharge Plan Discharge Disposition Patient Disposition: 01 Discharge Home Discharge Condition Condition: Stable Discharge Order Discharge Orders: Discharge Order (Routine); Ordered 10/28/18 Ordered By: Phyllis Garcia Physicians Team Primary Care Provider: Roly Shultz Attending Provider: Phyllis Garcia Other Providers: Blaine Bartlett Rxs /Orders / Referrals /Forms Prescriptions: New acetaminophen 325 mg Tablet 650 mg PO Q4H PRN (Reason: Temp > 100.4) Qty: 0 RF: 0 acyclovir 800 mg Tablet 800 mg PO 5 TIMES A DAY Qty: 35 RF: 0 nifedipine 60 mg Tablet Extended Release 24hr 60 mg PO DAILY Qty: 30 RF: 0 lisinopril 5 mg Tablet 10 mg PO DAILY Qty: 30 RF: 0 oabofave-czew-ED-calcium-mins [Thera M Plus (ferrous fumarat)] 9 mg iron-400 mcg Tablet 1 tab PO DAILY Qty: 0 RF: 0 prednisone 10 mg tablets,dose pack See Label Instructions PO PER PKG DIR Qty: 21 RF: 0 Continue methylprednisolone 4 mg Tablet 4 mg PO DAILY RF: 0 temazepam 15 mg Capsule 15 mg PO HS RF: 0 metoprolol tartrate 25 mg Tablet 25 mg PO BID RF: 0 clonidine HCl 0.1 mg Tablet 0.1 mg PO PRN RF: 0 Discontinued lisinopril 5 mg Tablet 5 mg PO DAILY RF: 0 Referrals: Roly Shultz DO [Primary Care Provider] - See Instructions ( Please call the physician's office to book the appointment to be seen within [2d].) Discharge Instructions Patient Printed Instructions: Lisinopril (By mouth), Nifedipine (By mouth), Prednisone (By mouth), Acyclovir (By mouth), Shingles (DC), Acute Hypothermia ( DC) Status ED Status: Left Department
== END 2018-10-28 12:53 | disposition home or self-care (01) ==
LOC: NEDA 08:19 → NEPC 08:19 → NEDA 13:46 → NEPGCP 14:47
PROVIDERS: ADMIT Internal Medicine; ATTEND Internal Medicine